=== PATIENT | female | born 1975 | race Caucasian/White ===

== ENCOUNTER 2017-09-27 06:18 | Day surgery (SDC) | payer BC ==
[2017-09-20 15:50] VITALS: BMI 33.4
--- NOTE | 2017-09-26 19:56 | P.HPOB ---
History of Present Illness H&P Date: 09/26/17 Chief Complaint: Menorrhagia with irregular cycle This is a 41-year-old female 3 para 3 who presents for dilation and curettage with hysteroscopy and NovaSure endometrial ablation due to menorrhagia with irregular cycle. Her pelvic ultrasound showed a uterus measuring 11.4 x 6.5 x 9.3 cm with a possible fibroid in the left side measuring 1.8 cm. Endometrium measured 1.7 cm right before her menses. Ovaries appeared normal. She complains of menses occurring every 3-4 weeks and lasting at least 6-7 days with large clots and cramping. She has to change her pads every couple hours. Obstetrical history: . History of 3 vaginal deliveries. Gynecologic history: No history of sexually transmitted diseases. She has had a tubal ligation. Social history: She is . 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 Review of Systems Constitutional: Denies chills, Denies fever Eyes: denies blurred vision, denies pain Ears, nose, mouth and throat: Denies headache, Denies sore throat Cardiovascular: Denies chest pain, Denies shortness of breath Respiratory: Denies cough Gastrointestinal: Denies abdominal pain, Denies diarrhea, Denies nausea, Denies vomiting Genitourinary: Reports menorrhagia, Reports pelvic pain Menstruation: Reports menses variable, Reports period heavy Musculoskeletal: Denies myalgias Integumentary: Denies pruritus, Denies rash Neurological: Denies numbness, Denies weakness Psychiatric: Reports irritability (Around menses), Denies anxiety, Denies depression Past Medical History Past Medical History: Diabetes Mellitus, Hyperlipidemia Additional Past Medical History / Comment(s): takes lisinopril due to diabetes, not high BP; alopecia, anticardiolipin antibody positive, thrombocytopenia History of Any Multi-Drug Resistant Organisms: None Reported Past Surgical History: Tubal Ligation Additional Past Surgical History / Comment(s): COLONOSCOPY x2 Past Anesthesia/Blood Transfusion Reactions: No Reported Reaction Past Psychological History: No Psychological Hx Reported Smoking Status: Former smoker Past Alcohol Use History: Occasional Past Drug Use History: None Reported - Past Family History Mother Family Medical History: No Reported History Medications and Allergies Home Medications Medication Instructions Recorded Confirmed Type Lisinopril [Zestril] 2.5 mg PO PC-SUPPER 09/20/17 09/20/17 History Lovastatin [Mevacor] 20 mg PO PC-SUPPER 09/20/17 09/20/17 History Multivit with Calcium,Iron,Min 1 each PO DAILY 09/20/17 09/20/17 History [Women's Multivitamin] metFORMIN HCL [metFORMIN HCL ER] 750 mg PO PC-SUPPER 09/20/17 09/20/17 History Allergies Allergy/AdvReac Type Severity Reaction Status Date / Time No Known Allergies Allergy Verified 09/20/17 15:46 Exam Osteopathic Statement: *. No significant issues noted on an osteopathic structural exam other than those noted in the History and Physical/Consult. HEENT: Within normal limits Heart: Regular rate and rhythm Lungs: Clear to auscultation bilaterally Abdomen: Soft, nontender Pelvic exam: Uterus is anteverted, nontender, with no adnexal masses or tenderness noted. Extremities: Negative Homans Assessment and Plan (1) Menorrhagia with irregular cycle Status: Acute Code(s): N92.1 - EXCESSIVE AND FREQUENT MENSTRUATION WITH IRREGULAR CYCLE SNOMED Code(s): 038775657 Plan: Proceed with dilation and curettage with hysteroscopy and NovaSure endometrial ablation. I have discussed the risks, benefits, and alternative therapies for the above- mentioned procedure and for both sedation/anesthesia as well as necessary blood products administration, if indicated, as they pertain to this patient. The patient has indicated her understanding and acceptance of the risks and procedures discussed.
[~2017-09-27 06:18] MED LIST: DEXAMETHASONE SOD PHOSPHATE 10 MG/ML 1 ML VIAL IV ONE; HYDROmorphone 0.5 MG/0.5 ML SYRINGE IVP PRN; LACTATED RINGERS 1,000 ML IV SCH; MORPHINE SULFATE 2 MG/ML SYRINGE IV PRN; ONDANSETRON 4 MG/2 ML VIAL IVP ONE; ONDANSETRON 4 MG/2 ML VIAL IVP PRN; PROMETHAZINE INJ 6.25 MG in SODIUM CHLORIDE 0.9% 50 ML IVPB PRN; Pre Op ABX Message 1 EACH MISC MISCELLANE ONE
[2017-09-27 06:47] LABS: Glucose,Whole Blood 163 mg/dL (75-99)
[2017-09-27] MEDS ORDERED: LIDOCAINE 1% 20 ML VIAL (10MG/ML) FOR IV START INTRADERMA ONE (06:50)
[2017-09-27] MEDS ORDERED: KETOROLAC 30 MG/ML 1 ML VIAL ONE (07:30)
[2017-09-27] MEDS ORDERED: PROPOFOL 10 MG/ML 20 ML VIAL IV ONE (07:30)
[2017-09-27] MEDS ORDERED: fentaNYL (PF) 50 MCG/ML 2 ML AMP ONE (07:30)
[2017-09-27] MEDS ORDERED: MIDAZOLAM 2 MG/2 ML VIAL ONE (07:30)
--- NOTE | 2017-09-27 08:07 | P.OP ---
Date of Procedure: 09/27/17 Preoperative Diagnosis: Menorrhagia with irregular cycle Postoperative Diagnosis: Same Procedure(s) Performed: Dilation and curettage with hysteroscopy and NovaSure endometrial ablation Anesthesia: other (Mask general) Surgeon: Sara Vanessa Estimated Blood Loss (ml): 10 Pathology: other (Endometrial curettings) Condition: stable Disposition: same day Indications for Procedure: This is a 41-year-old female 3 para 3 who presents for dilation and curettage with hysteroscopy and NovaSure endometrial ablation due to menorrhagia with irregular cycle. Her pelvic ultrasound showed a uterus measuring 11.4 x 6.5 x 9.3 cm with a possible fibroid in the left side measuring 1.8 cm. Endometrium measured 1.7 cm right before her menses. Ovaries appeared normal. She complains of menses occurring every 3-4 weeks and lasting at least 6-7 days with large clots and cramping. She has to change her pads every couple hours. Operative Findings: Uterus is anteverted, and sounded to 11 cm. Cervix is sounded to 4 cm. Upon hysteroscopy a dyssynchronous endometrial pattern was noted with some buildup of tissue noted. Both tubal ostia were visualized. A moderate to large amount of endometrial cuttings are obtained. Description of Procedure: The patient is taken to the operating room. She is placed in the dorsal lithotomy position after general anesthesia was given. She is prepped and draped in the normal sterile fashion. Bladder is drained with a catheter and then removed. Pelvic exam is performed under anesthesia. Uterus is found to be anteverted with no adnexal masses. She is placed in slight Trendelenburg position. A right angle retractor is used to visualize the cervix. The anterior lip of the cervix is grasped with a single-tooth tenaculum. Cervix is sounded to 4 cm. Uterus is sounded to 11 cm. Cervix is gently dilated with Galarza dilators until a hysteroscope could be passed. Hysteroscopy is performed using normal saline. The above noted findings are noted. Next a polyp forceps is introduced. A moderate to large amount of tissue was obtained. Next medium- sized size sharp curette was placed. A moderate to large amount of endometrial curettings were obtained. Next NovaSure array was inserted into the endometrial cavity. Length was set at 6.5 cm and width was determined to be 4.9 cm. Next cavity assessment was completed and passed on the first try. Next NovaSure array was fired at 175 W for 63 seconds. Next the array was removed, inspected and then discarded. Next the hysteroscope was reinserted. Uniform charring was noted. Pictures were taken. Hysteroscope was removed. Single-tooth tenaculum was removed from the anterior lip of the cervix. Minimal bleeding was noted. All other instruments removed from the vagina. Sponge counts were correct. Patient is taken to recovery room in stable condition.
[2017-09-27 08:17] VITALS: TEMP 97.6
[2017-09-27 08:49] VITALS: RESP 16
[2017-09-27 08:49] LABS: Glucose,Whole Blood 181 mg/dL (75-99)
[2017-09-27 09:55] VITALS: BP 101/56; PULSE 77
== END 2017-09-27 10:23 | disposition home or self-care (01) ==
LOC: OR 06:18
PROVIDERS: ATTEND Obstetrics & Gynecology
DX: N84.0 Polyp of corpus uteri (principal); N92.1 Excessive and frequent menstruation with irregular cycle; E11.9 Type 2 diabetes mellitus without complications; E78.5 Hyperlipidemia, unspecified; E66.9 Obesity, unspecified; Z68.33 Body mass index [BMI] 33.0-33.9, adult; Z79.84 Long term (current) use of oral hypoglycemic drugs; Z79.899 Other long term (current) drug therapy; Z87.891 Personal history of nicotine dependence; Z98.51 Tubal ligation status
CPT/HCPCS: 58563; 81025; 88305; J2250; J1100; J2405; J3010; J1885; J2704; J1170

== ENCOUNTER 2020-08-02 07:41 | Inpatient (IN) | payer BC ==
--- NOTE | 2020-08-02 08:07 | ED ---
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 she states that she has had intermittent headaches x 3 days, and had one at the time of symptoms. Denies this being the worst headache of her life, described as dull aching pain, in the front of head. Pt states that she also noted 3 days ago she has loss of the right peripheral visual torres and had the numbness sensation that she is experiencing today--pt states that her right eye didnt seem to change and has been better since Saturday. Patient denies diplopia, nausea, vomiting, current sensation deficits/symptoms, weakness of the UE, LE, speech changes, facial asymmetry. Denies experiencing this in the past. pt denies pain, chest pain, dyspnea, leg swelling, anticoagulation use. Upon arrival patient appears well nontoxic. - Related Data Home Medications: Home Medications Medication Instructions Recorded Confirmed Empagliflozin [Jardiance] 10 mg PO DAILY 08/02/20 08/02/20 Omeprazole 20 mg PO DAILY 08/02/20 08/02/20 lisinopriL [Zestril] 5 mg PO DAILY 08/02/20 08/02/20 Allergies/Adverse Reactions: Allergies Allergy/AdvReac Type Severity Reaction Status Date / Time No Known Allergies Allergy Verified 08/02/20 07:49 Review of Systems ROS Statement: Those systems with pertinent positive or pertinent negative responses have been documented in the HPI. ROS Other: All systems not noted in ROS Statement are negative. General Exam - General Exam Comments Initial Comments: General: The patient is awake and alert, in no distress Eye: +3 mm pupils are equal, round and reactive to light, extra-ocular movements are intact. No nystagmus. There is normal conjunctiva bilaterally. No signs of icterus. Ears, nose, mouth and throat: There are moist mucous membranes and no oral lesions. Neck: The neck is supple, there is no tenderness or JVD. Cardiovascular: There is a regular rate and rhythm. No murmur, rub or gallop is appreciated. Respiratory: Lungs are clear to auscultation, respirations are non-labored, breath sounds are equal. No wheezes, stridor, rales, or rhonchi. Musculoskeletal: Normal ROM, no tenderness. Strength 5/5. Sensation intact. Pulses equal bilaterally 2+. Neurological: A&O x 3. CN II-XII intact aside from patietn has impairment lateral vision field of right eye (hemianopia), memory intact to immediately, intermediate and fdc recall. Able to follow simple verbal. Able to name a common object (pen). High quality, labial (pa) and lingual (la) speech. Low quality posterior pharynx/larynx (ga) voice sounds. Able to express general knowledge (days in a week). No hemineglect or inattention noted. Finger agnosia (-) and spatially oriented (identified L index finger touched R shoulder with L index finger). Light touch and temperature sensation present over the face, chest, abdomen, back, UE bilaterally, and LE bilaterally. Able to localize point during point localization b/l and extinction. No visible bulk atrophy, hypertrophy, fasciculations, or myoclonus of the UE or LE b/l. Full PROM in UE and LE b/l. Bilateral muscle strength 5/5 for the following muscles: deltoid, biceps, triceps, brachioradialis, wrist extensors/flexor, hip flexor, hip abductors/adductors, hamstrings, quadriceps, feet dorsiflexors/plantar flexors. Finger to nose, finger to the examiners finger, and heel to larson coordinated and accurate b/l. Coordinated and even demonstration of hand flip, finger to thumb, and toe tap b/l.(-) primitive reflexes. Gait is coordinated and even in stride. (-) pronator drift. No nuchal rigidity. (-) Brudzinskis and Kernig signs. Skin: Skin is warm and dry and no rashes or lesions are noted. Psychiatric: Cooperative, appropriate mood & affect, normal judgment. Limitations: no limitations Stroke MDM - Lab Data Result diagrams: 08/02/20 08:31 04 08:31 Lab Results 08/02/20 08/02/20 08/02/20 Range/Units 08:31 08:31 08:31 WBC 6.1 (3.8-10.6) k/uL RBC 4.88 (3.80-5.40) m/uL Hgb 13.8 (11.4-16.0) gm/dL Hct 41.5 (34.0-46.0) % MCV 85.0 (80.0-100.0) fL MCH 28.2 (25.0-35.0) pg MCHC 33.2 (31.0-37.0) g/dL RDW 14.9 (11.5-15.5) % Plt Count 213 (150-450) k/uL MPV 6.6 Neutrophils % 87 % Lymphocytes % 5 % Monocytes % 4 % Eosinophils % 4 % Basophils % 1 % Neutrophils # 5.3 (1.3-7.7) k/uL Lymphocytes # 0.3 L (1.0-4.8) k/uL Monocytes # 0.2 (0-1.0) k/uL Eosinophils # 0.2 (0-0.7) k/uL Basophils # 0.0 (0-0.2) k/uL PT 11.4 (9.0-12.0) sec INR 1.1 (<1.2) APTT 42.5 H (22.0-30.0) sec Sodium 134 L (137-145) mmol/L Potassium 4.0 (3.5-5.1) mmol/L Chloride 100 (98-107) mmol/L Carbon Dioxide 23 (22-30) mmol/L Anion Gap 11 mmol/L BUN 13 (7-17) mg/dL Creatinine 0.49 L (0.52-1.04) mg/dL Est GFR (CKD-EPI)AfAm >90 (>60 ml/min/1.73 sqM) Est GFR (CKD-EPI)NonAf >90 (>60 ml/min/1.73 sqM) Glucose 121 H (74-99) mg/dL Calcium 9.2 (8.4-10.2) mg/dL Total Bilirubin 0.7 (0.2-1.3) mg/dL AST 23 (14-36) U/L ALT 17 (4-34) U/L Alkaline Phosphatase 67 (38-126) U/L Troponin I (0.000-0.034) ng/mL Total Protein 7.1 (6.3-8.2) g/dL Albumin 4.5 (3.5-5.0) g/dL Coronavirus (PCR) (Not Detectd) 08/02/20 08/02/20 Range/Units 08:31 09:45 WBC (3.8-10.6) k/uL RBC (3.80-5.40) m/uL Hgb (11.4-16.0) gm/dL Hct (34.0-46.0) % MCV (80.0-100.0) fL MCH (25.0-35.0) pg MCHC (31.0-37.0) g/dL RDW (11.5-15.5) % Plt Count (150-450) k/uL MPV Neutrophils % % Lymphocytes % % Monocytes % % Eosinophils % % Basophils % % Neutrophils # (1.3-7.7) k/uL Lymphocytes # (1.0-4.8) k/uL Monocytes # (0-1.0) k/uL Eosinophils # (0-0.7) k/uL Basophils # (0-0.2) k/uL PT (9.0-12.0) sec INR (<1.2) APTT (22.0-30.0) sec Sodium (137-145) mmol/L Potassium (3.5-5.1) mmol/L Chloride (98-107) mmol/L Carbon Dioxide (22-30) mmol/L Anion Gap mmol/L BUN (7-17) mg/dL Creatinine (0.52-1.04) mg/dL Est GFR (CKD-EPI)AfAm (>60 ml/min/1.73 sqM) Est GFR (CKD-EPI)NonAf (>60 ml/min/1.73 sqM) Glucose (74-99) mg/dL Calcium (8.4-10.2) mg/dL Total Bilirubin (0.2-1.3) mg/dL AST (14-36) U/L ALT (4-34) U/L Alkaline Phosphatase (38-126) U/L Troponin I <0.012 (0.000-0.034) ng/mL Total Protein (6.3-8.2) g/dL Albumin (3.5-5.0) g/dL Coronavirus (PCR) Not Detected (Not Detectd) - Medical Decision Making 44yo female presenting for cc of vision changes x 3 days/numbness x 3 days with reoccurance and resolution 5 hours ago. Patient states vision appears normal but there is right hemianopia on exam. Patient CT correlates with exam findings. Discussed ifndings with attending/as well as neurology who feel this is subacute and clinically correlates with patient story of symptom onset Saturday. Dr Barbara vazquez recommended starting plavix 300mg and lipitor 80mg. he is agreeable to consultation. Patient will be admitted to Dr Vallejo Past Medical History Past Medical History: Diabetes Mellitus, Hyperlipidemia Additional Past Medical History / Comment(s): takes lisinopril due to diabetes, not high BP; alopecia, anticardiolipin antibody positive, thrombocytopenia History of Any Multi-Drug Resistant Organisms: None Reported Past Surgical History: Tubal Ligation Additional Past Surgical History / Comment(s): COLONOSCOPY x2 Past Anesthesia/Blood Transfusion Reactions: No Reported Reaction Past Psychological History: No Psychological Hx Reported Smoking Status: Current some day smoker Past Alcohol Use History: Occasional Past Drug Use History: Marijuana - Past Family History Mother Family Medical History: No Reported History Course Vital Signs 08/02/20 08/02/20 08/02/20 07:46 09:05 09:10 Temperature 97.5 F L 98.0 F Pulse Rate 87 86 82 Respiratory 20 18 18 Rate Blood Pressure 121/80 112/65 117/70 O2 Sat by Pulse 99 96 97 Oximetry 08/02/20 08/02/20 09:45 10:05 Temperature 98.1 F Pulse Rate 89 83 Respiratory 18 18 Rate Blood Pressure 105/68 119/58 O2 Sat by Pulse 99 97 Oximetry - Reevaluation(s) Reevaluation #1: Dr Denisse nguyen described a SUBACUTE, left occipital infarct. 08/02/20 09:09 Disposition Clinical Impression: CVA (cerebral vascular accident), Hemianopia of right eye Disposition: ADMITTED IP TO THIS HOSP Condition: Stable Is patient prescribed a controlled substance at d/c from ED?: No Referrals: Don Bell MD [Primary Care Provider] - 1-2 days Time of Disposition: 09:03 Decision to Admit Reason: Admit from EC Decision Date: 08/02/20 Decision Time: 09:03
[2020-08-02 08:50] LABS: Basophils % (A) 1 %; Eosinophils # (A) 0.2 k/uL (0-0.7); Eosinophils % (A) 4 %; HCT 41.5 % (34.0-46.0); HGB 13.8 gm/dL (11.4-16.0); Lymphocytes # (A) 0.3 k/uL (1.0-4.8); Lymphocytes % (A) 5 %; MCH 28.2 pg (25.0-35.0); MCHC 33.2 g/dL (31.0-37.0); Mean Platelet Volume 6.6; Monocytes # (A) 0.2 k/uL (0-1.0); Monocytes % (A) 4 %; Neutrophils # (A) 5.3 k/uL (1.3-7.7); Neutrophils % (A) 87 %; Platelet Count 213 k/uL (150-450); RBC 4.88 m/uL (3.80-5.40); RDW 14.9 % (11.5-15.5); WBC 6.1 k/uL (3.8-10.6)
[2020-08-02] MEDS ORDERED: ASPIRIN 325 MG TAB PO STA (09:02)
[2020-08-02 09:04] LABS: ALT 17 U/L (4-34); AST 23 U/L (14-36); African American GFR (CKD) >90 (>60 ml/min/1.73 sqM); Albumin 4.5 g/dL (3.5-5.0); Alkaline Phosphatase 67 U/L (38-126); Anion Gap 11 mmol/L; Blood Urea Nitrogen 13 mg/dL (7-17); Calcium 9.2 mg/dL (8.4-10.2); Carbon Dioxide 23 mmol/L (22-30); Chloride 100 mmol/L (98-107); Glucose 121 mg/dL (74-99); Non-African American GFR(CKD) >90 (>60 ml/min/1.73 sqM); Sodium 134 mmol/L (137-145); Total Bilirubin 0.7 mg/dL (0.2-1.3); Total Protein 7.1 g/dL (6.3-8.2)
--- NOTE | 2020-08-02 09:08 | CT ---
EXAMINATION TYPE: CT brain wo con for TPA DATE OF EXAM: 08/02/2020 COMPARISON: None HISTORY: Neuro deficit CT DLP: 1110.8 mGycm Automated exposure control for dose reduction was used. FINDINGS: Low-attenuation is present within the inferior aspect of the left parietal lobe, area measures approx imately 4.2 cm in greatest AP dimension by 2.4 cm in transverse dimension by 2.2 cm in cephalad to ca udal dimension. There is no hemorrhage, hydrocephalus. Inferior cerebellar tonsillar ectopia noted in cidentally. Calvarium is intact. Mastoid air cells are well aerated. Some inflammatory change present in the ethmoid air cells, frontal sinus. Orbits show symmetric appearance. Punctate focus of low-att enuation within the head of the caudate on the right may represent small focus of encephalomalacia, w rote remote infarct measuring only 5 mm in size. IMPRESSION: Findings consistent with infarct involving the left inferior occipital lobe findings relayed to Kelsey Vázquez telephonically at the time of interpretation. Probable remote infarct head of the caudate on the right.
[2020-08-02 09:10] LABS: INR 1.1 (<1.2); Partial Thromboplastin Time 42.5 sec (22.0-30.0); Prothrombin Time 11.4 sec (9.0-12.0)
--- NOTE | 2020-08-02 09:16 | XR ---
EXAMINATION TYPE: XR chest 2V DATE OF EXAM: 08/02/2020 COMPARISON: NONE TECHNIQUE: PA and lateral views submitted. HISTORY: Altered mental status FINDINGS: The lungs are clear and there is no pneumothorax, pleural effusion, or focal pneumonia. Interstitiu m somewhat coarsened. Biapical pleural thickening. Heart size normal. IMPRESSION: 1. Coarsened interstitium may represent chronic interstitial lung disease correlate clinically to exc lude interstitial pneumonitis..
--- NOTE | 2020-08-02 09:48 | CT ---
EXAMINATION TYPE: CT angio head neck DATE OF EXAM: 08/02/2020 HISTORY: Neuro deficit COMPARISON: CT brain same date CT DLP: 577.7 mGycm. Automated Exposure Control for Dose Reduction was Utilized. TECHNIQUE: CTA scan of the neck is performed with IV Contrast, patient injected with 65 mL of Isovue 370, axial images are obtained, coronal and sagittal reformatted images are reviewed. Three-D recons tructed images are created on an independent workstation and reviewed. FINDINGS: Carotid/Vascular Structures: Transverse aorta, 3 super aortic branch vessels are patent, left and rig ht subclavian arteries, left and right common carotid arteries, innominate artery are patent without evident stenosis. Internal and external carotid arteries are patent. There is no stenosis by NASCET c riteria. Right vertebral artery is patent, left vertebral artery is not seen proximally but is diminu tive distally near the level of the confluence. Anterior posterior circulation within the soboba of Garcia are intact. There is no evident aneurysm, stenosis, embolus, or dissection. Other: Midline posterior fusion defect noted C1. There is nodularity involving the thyroid gland with some calcification noted on the left. IMPRESSION: No significant abnormality is seen.
[2020-08-02] MEDS ORDERED: CLOPIDOGREL 75 MG TAB PO STA (10:29)
[2020-08-02] MEDS ORDERED: ATORVASTATIN 80 MG TAB PO STA (10:30)
--- NOTE | 2020-08-02 11:01 | ECHOF ---
Referral Reason: MEASUREMENTS -------- HEIGHT: 165.1 cm WEIGHT: 90.7 kg BP: RVIDd: 2.4 cm (< 3.3) IVSd: 0.8 cm (0.6 - 1.1) LVIDd: 4.5 cm (3.9 - 5.3) LVPWd: 0.9 cm (0.6 - 1.1) IVSs: 1.4 cm LVIDs: 1.9 cm LVPWs: 1.3 cm LAESV Index (A-L): 23.73 ml/m Ao Diam: 2.9 cm (2.0 - 3.7) AV Cusp: 2.3 cm (1.5 - 2.6) LA Diam: 3.6 cm (2.7 - 3.8) MV EXCURSION: 13.189 mm (> 18.000) MV EF SLOPE: 100 mm/s (70 - 150) EPSS: 0.6 cm MV E Richy: 1.00 m/s MV DecT: 163 ms MV A Richy: 1.10 m/s MV E/A Ratio: 0.91 RAP: 5.00 mmHg RVSP: 20.36 mmHg FINDINGS -------- This was a technically adequate study. The left ventricular size is normal. Left ventricular wall thickness is normal. Overall left vent ricular systolic function is normal with, an EF between 55 - 60 %. The diastolic filling pattern is normal for the age of the patient 12.50. The right ventricle is normal in size. The left atrial size is normal. Normal LA size by volume 22+/-6 ml/m2. The right atrial size is normal. Contrast study was performed with 2 iv injections of 8 ccs of agitated normal saline, at rest, and wi th cough. Bubble study to rule out shunt. Unable to rule out due to poor image quality. The aortic valve is trileaflet and appears structurally normal. The mitral valve is normal. There is trace mitral regurgitation. The tricuspid valve appears structurally normal. Trace tricuspid regurgitation present. Right fanny tricular systolic pressure is normal at < 35 mmHg. There is no pulmonic regurgitation present. The aortic root size is normal. Normal inferior vena cava with normal inspiratory collapse consistent with estimated right atrial pre ssure of 5 mmHg. There is no pericardial effusion. CONCLUSIONS -------- 1. Left ventricular wall thickness is normal. 2. Overall left ventricular systolic function is normal with, an EF between 55 - 60 %. 3. The diastolic filling pattern is normal for the age of the patient 12.50 4. Contrast study was performed with 2 iv injections of 8 ccs of agitated normal saline, at rest, and with cough. 5. Bubble study to rule out shunt. Unable to rule out due to poor image quality. 6. There is trace mitral regurgitation. 7. Trace tricuspid regurgitation present. 8. There is no pericardial effusion. ROOM SERVICE MANAGER: Amaya Coates RDCS
--- NOTE | 2020-08-02 12:50 | P.CNNES ---
History of Present Illness Consult date: 08/02/20 Requesting physician: Dasia Vázquez Reason for Consult: subacute occipital stroke History of Present Illness: This is a 44-year-old woman with medical history of diabetes (for past 30 years) and the positive for anti-cardiolipin antibody who presented emergency department on 08/02/2020 for complaint of right facial numbness for last 3 days as well as right vision change. Asa was accompanied with her who is at bedside. She stated that the since this Saturday night she felt dizzy and she had to hold onto thinks she felt like the room is spinning episode lasted for half hour then it resolved. She thought this was all related to her diabetes. Then the Saturday and Saturday she felt she was mentally off not her baseline and was low as in thinking process. At 3:00 AM today she noticed the right side of the face and the entire right upper extremity and the right side of her body was numb and that lasted 1-2 minutes and the primary to come to the hospital. Also that she noticed that Saturday around that 10 PM her right side of the eyes could not see and it was per minute but again she no. She felt this was all due to diabetes as well as having echo with vaccine this past Saturday. She denies of any focal weakness, any current numbness, any difficulty getting her words out or difficulty swallowing. She denies of any stroke in the past or any transient ischemic attack. Patient denies of being on any antiplatelets or anticoagulation. Regarding her anticardiolipin antibodies she said that the she had testing done while she was about 20 years ago and she was notified that she had anticardiolipin antibody but was not very placed on any antiplatelets or anticoagulation. She denies any the spontaneous abortions in the past. She denies being on any statins. Workup in the hospital consisted of: Initial vital signs: Blood pressure of 121/80, heart rate of 87, respiratory of 20, temperature of 97.5 Fahrenheit oral and pulse ox of 99% room air. CT of the head is reported as finding consistent with infarct involving the left inferior occipital lobe. Probable remote infarct head of the caudate on the right. Personally reviewed the CT of the head and I felt the the left occipital seems more subacute to chronic. And I did see the the remote infarct in the right caudate region. CT angiography of the head and neck is reported as no significant abnormality seen. Initial serum glucose is 121. Review of Systems Review of system: The 12 point system was reviewed and apparent positive and negative per HPI. Past Medical History Past Medical History: Diabetes Mellitus, Hyperlipidemia Additional Past Medical History / Comment(s): takes lisinopril due to diabetes, not high BP; alopecia, anticardiolipin antibody positive, thrombocytopenia History of Any Multi-Drug Resistant Organisms: None Reported Past Surgical History: Tubal Ligation Additional Past Surgical History / Comment(s): COLONOSCOPY x2 Past Anesthesia/Blood Transfusion Reactions: No Reported Reaction Past Psychological History: No Psychological Hx Reported Smoking Status: Current some day smoker Past Alcohol Use History: Occasional Past Drug Use History: Marijuana - Past Family History Mother Family Medical History: No Reported History Medications and Allergies Home Medications Medication Instructions Recorded Confirmed Type Empagliflozin [Jardiance] 10 mg PO DAILY 08/02/20 08/02/20 History Omeprazole 20 mg PO DAILY 08/02/20 08/02/20 History lisinopriL [Zestril] 5 mg PO DAILY 08/02/20 08/02/20 History Allergies Allergy/AdvReac Type Severity Reaction Status Date / Time No Known Allergies Allergy Verified 08/02/20 07:49 Physical Examination - Vital Signs Vital Signs: Vital Signs Temp Pulse Resp BP Pulse Ox 08/02/20 10:05 98.1 F 83 18 119/58 97 08/02/20 09:45 89 18 105/68 99 08/02/20 09:10 82 18 117/70 97 08/02/20 09:05 98.0 F 86 18 112/65 96 08/02/20 07:46 97.5 F L 87 20 121/80 99 Intake and Output 08/01/20 08/02/20 08/02/20 22:59 06:59 14:59 Other: Weight 90.718 kg GENERAL: The patient is lying in bed and is not in acute distress. CHEST: The heart rate is regular rate rhythm. No murmurs to auscultation. No carotid bruit bilaterally. LUNG: Clear to auscultation bilaterally no wheezing noted throughout. Not labored breathing. ABDOMEN/GI: Bowel sounds present in all 4 quadrants. No tenderness to palpation throughout. NEUROLOGICAL: Higher mental function: The patient is awake, alert, oriented to self, place and time. Patient is following commands. No aphasia and no neglect. Cranial nerves: The pupils are round, equal and reactive to light and accommodation. Visual torres: right upper quadrant hemianopsia to confrontation. Extraocular movement is intact no nystagmus is noted. Facial sensation is normal to touch throughout. The facial strength is normal throughout. Hearing is normal bilaterally to hand rub. Tongue is midline and moved [id number] without any difficulty. No dysarthria is noted. Shoulder shrug is normal bilaterally. Motor: Gait is deferred. The strength is 5 over 5 throughout. Normal tone and bulk. Cerebellum: Normal finger to nose heel to larson bilaterally. Sensation: Sensation is normal to touch throughout. Reflexes (right/left): 2+ Plantars are downgoing bilaterally. Results Coagulation study: PT of 11.4, INR is 1.1, PTT of 42.5 (slightly elevated). Field virus are is nondetected - Laboratory Findings CBC and BMP: 08/02/20 08:31 04 08:31 Abnormal Lab Findings: Abnormal Labs 08/02/20 08/02/20 08/02/20 08:31 08:31 08:31 Lymphocytes # 0.3 L APTT 42.5 H Sodium 134 L Creatinine 0.49 L Glucose 121 H Assessment and Plan Assessment: Subacute ischemic stroke over the left occipital region (with symptoms of right upper quadrant hemianposia). 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 I asked the ED to also load the patient with the Plavix 300 mg once as well as Lipitor 80 mg once. Then I will start the patient on aspirin 81 as well as Plavix 75 mg daily for secondary stroke prophylaxis. I will consider starting the patient on anticoagulation possibly in 5 days but will speak with cardiology regarding this before I proceed. I'll also start the patient on Lipitor 80 mg daily for secondary stroke prophylaxis. Ordered MRI the brain and 2-D echo. The 2-D echo was with bubble study. If the 2-D echo was normal I will order AKHIL. I ordered an event monitor. Lipid panel is ordered and is pending Placed the patient on every 4 hours neuro checks. Placed the patient on continuous cardiac monitoring. TSH is ordered and is pending Physical therapy, occupational therapy and COMPUTER INFORMATION SYSTEMS PROFESSOR are consulted. I ordered DARA, [id number] DNA, cardiolipin antibody, factor V Leiden, homocysteine, MTHFR genotype, von Willebrand factor. I asked the ED team to consult cardiology team. The plan is discussed with the patient's nurse. Thank you for the consultation. Roberto Ludwig MD Neuro-Hospitalist Time with Patient: Greater than 30
--- NOTE | 2020-08-02 16:10 | MR ---
MR brain without contrast HISTORY: Stroke, dizziness Multiplanar multisequence imaging through the brain Correlation to prior CT brain 08/02/2020 There is restricted diffusion involving the region of the inferior left occipital lobe as noted on CT with extension towards the region of the posterior thalamus, corresponding hyperintensity noted on i nversion recovery T2-weighted sequences, some minimal additional scattered hyperintensities present w ithin the deep white matter. There is no hemorrhage or hydrocephalus. Inflammatory change present in the frontal sinus, ethmoid air cells. There are normal vascular flow voids. Orbits show symmetric negin earance. Some artifact present due to dental amalgam. IMPRESSION: Findings compatible with patient's history subacute infarct.
[2020-08-02 20:04] LABS: Glucose,Whole Blood 149 mg/dL (75-99)
[2020-08-02 21:44] LABS: Cardiolipin Ab IgG Interp NEGATIVE (NEGATIVE); Cardiolipin Ab IgM Interp NEGATIVE (NEGATIVE); Cardiolipin IgA Antibody 0.5 U/mL; Cardiolipin IgM Antibody 16.8 U/mL
[2020-08-02 21:46] LABS: Anti-DNA, DS unit <1.0 IU/mL; DNA Double-Stranded NEGATIVE (NEGATIVE)
[2020-08-03 05:31] LABS: Glucose,Whole Blood 128 mg/dL (75-99)
[2020-08-03 09:23] LABS: Cholesterol 150 mg/dL (<200); HDL Cholesterol 39 mg/dL (40-60); LDL Cholesterol,Calculated 73 mg/dL (0-99); Triglycerides 189 mg/dL (<150)
--- NOTE | 2020-08-03 09:56 | P.CRDCN ---
History of Present Illness History of present illness: HISTORY OF PRESENTING ILLNESS This is a pleasant 44-year-old female past medical history significant for diabetes mellitus, hypertension and former nicotine dependence. 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 We have been asked to see in consultation for AKHIL. She presented to the hospital yesterday with symptoms of feeling dizzy, lightheaded, right-sided numbness and peripheral vision changes on the right. She states her symptoms seem to have started on Saturday. She states she just felt tired, weak and mildly lightheaded. She was able to go into work and work her midnight shift as scheduled. When she got home on Saturday she felt extremely fatigued and slept all day. She then went to work again on Saturday night. While at work she continued to feel lightheaded and had an acute onset of right-sided numbness that went from her waist all the way up to her head. She states her face, jaw, teeth and arm were all normal. This was brief lasting about 10 minutes and subsided on its own. She called her PCP in the morning and was advised to come to the hospital for further evaluation. Diagnostic testing indicates she had a left inferior also pedal lobe infarct. Echocardiogram obtained revealed p reserved LV systolic function with ejection fraction 55-60% however they were unable to comment on the possibility of a shunt due to poor image quality. Telemetry tracings and EKG reviewed. She has been in sinus mechanism throughout her hospitalization. There is no evidence of arrhythmia thus far. Laboratory data reviewed, CBC unremarkable, sodium 134, potassium 4.0, creatinine 0.49, cardiac enzymes negative 1, TSH 1.93, DARA screen is positive, LDL 73 and HDL 39. Current daily medications include lisinopril 5 mg daily and jardiance. Her symptoms have almost completely resolved. She states that she gets up and ambulates she still does feel somewhat dizzy but not nearly as bad as was i nitially. REVIEW OF SYSTEMS At the time of my exam: CONSTITUTIONAL: Denies fever or chills. CARDIOVASCULAR: Denies chest pain, shortness of breath, orthopnea, PND or palpitations. RESPIRATORY: Denies cough. GASTROINTESTINAL: Denies abdominal pain, diarrhea, constipation, nausea or vomiting. MUSCULOSKELETAL: Denies myalgias. NEUROLOGIC: Denies numbness, tingling, headacbe or weakness. ENDOCRINE: Denies fatigue, weight change, polydipsia or polyurina. GENITOURINARY: Denies burning, hematuria or urgency with micturation. HEMATOLOGIC: Denies history of anemia or bleeding. PHYSICAL EXAMINATION Blood pressure 97/56 heart rate 84 afebrile and maintaining oxygen saturation on room air. CONSTITUTIONAL: No apparent distress. HEENT: Head is normocephalic. Pupils are equal, round. Sclerae anicteric. Mucous membranes of the mouth are moist. No JVD. No carotid bruit. CHEST EXAMINATION: Lungs are clear to auscultation. No chest wall tenderness is noted on palpation or with deep breathing. HEART EXAMINATION: Regular rate and rhythm. S1, S2 heard. No murmurs, gallops or rub. ABDOMEN: Soft, nontender. Positive bowel sounds. EXTREMITIES: 2+ peripheral pulses, no lower extremity edema and no calf tenderness. NEUROLOGIC EXAMINATION: Patient is awake, alert and oriented x3. ASSESSMENT Acute left inferior occipital lobe infarct, thought to be embolic in nature per neurology. Hypertension Diabetes mellitus PLAN No evidence thus far to suggest arrhythmia. Proceed with AKHIL tomorrow as recommended. Nothing by mouth after midnight tonight. The procedure has been explained in detail to the patient and she is agreeable to move forward. Ongoing telemetry monitoring throughout her hospitalization. Further recommendations to follow based upon clinical course. Thank you kindly for this consultation. Nurse Practitioner note has been reviewed, I agree with a documented findings and plan of care. Patient was seen and examined. Past Medical History Past Medical History: Diabetes Mellitus, Hyperlipidemia Additional Past Medical History / Comment(s): takes lisinopril due to diabetes, not high BP; alopecia, anticardiolipin antibody positive, thrombocytopenia History of Any Multi-Drug Resistant Organisms: None Reported Past Surgical History: Tubal Ligation Additional Past Surgical History / Comment(s): COLONOSCOPY x2 Past Anesthesia/Blood Transfusion Reactions: No Reported Reaction Past Psychological History: No Psychological Hx Reported Smoking Status: Current some day smoker Past Alcohol Use History: Occasional Past Drug Use History: Marijuana - Past Family History Mother Family Medical History: No Reported History Additional Family Medical History / Comment(s): Mother had a MT in her 50s. Father History Unknown: Yes Medications and Allergies Home Medications Medication Instructions Recorded Confirmed Type Empagliflozin [Jardiance] 10 mg PO DAILY 08/02/20 08/02/20 History Omeprazole 20 mg PO DAILY 08/02/20 08/02/20 History lisinopriL [Zestril] 5 mg PO DAILY 08/02/20 08/02/20 History Allergies Allergy/AdvReac Type Severity Reaction Status Date / Time No Known Allergies Allergy Verified 08/02/20 07:49 Physical Exam Vitals: Vital Signs Temp Pulse Pulse Resp BP BP Pulse Ox 08/03/20 07:40 98.8 F 84 16 97/56 98 08/03/20 04:00 98.4 F 69 16 109/71 98 08/03/20 02:00 68 17 08/03/20 00:00 98.1 F 68 17 94/56 97 08/02/20 20:00 97.9 F 77 16 95/52 96 08/02/20 18:18 98.1 F 89 16 105/70 96 08/02/20 17:47 97.9 F 87 18 105/55 98 08/02/20 16:05 87 18 105/55 98 08/02/20 14:05 85 18 99/58 97 08/02/20 12:05 97.9 F 90 18 119/58 98 08/02/20 11:46 81 18 109/90 95 08/02/20 11:05 98.0 F 80 18 112/48 98 08/02/20 10:05 98.1 F 83 18 119/58 97 08/02/20 09:45 89 18 105/68 99 08/02/20 09:10 82 18 117/70 97 08/02/20 09:05 98.0 F 86 18 112/65 96 Intake and Output 08/02/20 08/03/20 08/03/20 22:59 06:59 14:59 Intake Total 120 Balance 120 Intake: Oral 120 Other: Voiding Method Toilet Toilet # Voids 1 Weight 92.2 kg Results 08/02/20 08:31 08/02/20 08:31 Cardiac Enzymes 08/02/20 08/02/20 Range/Units 08:31 08:31 AST 23 (14-36) U/L Troponin I <0.012 (0.000-0.034) ng/mL Coagulation 08/02/20 Range/Units 08:31 PT 11.4 (9.0-12.0) sec APTT 42.5 H (22.0-30.0) sec CBC 08/02/20 Range/Units 08:31 WBC 6.1 (3.8-10.6) k/uL RBC 4.88 (3.80-5.40) m/uL Hgb 13.8 (11.4-16.0) gm/dL Hct 41.5 (34.0-46.0) % Plt Count 213 (150-450) k/uL Comprehensive Metabolic Panel 08/02/20 Range/Units 08:31 Sodium 134 L (137-145) mmol/L Potassium 4.0 (3.5-5.1) mmol/L Chloride 100 (98-107) mmol/L Carbon Dioxide 23 (22-30) mmol/L BUN 13 (7-17) mg/dL Creatinine 0.49 L (0.52-1.04) mg/dL Glucose 121 H (74-99) mg/dL Calcium 9.2 (8.4-10.2) mg/dL AST 23 (14-36) U/L ALT 17 (4-34) U/L Alkaline Phosphatase 67 (38-126) U/L Total Protein 7.1 (6.3-8.2) g/dL Albumin 4.5 (3.5-5.0) g/dL Current Medications Generic Name Dose Route Start Last Admin Trade Name Freq PRN Reason Stop Dose Admin Aspirin 81 mg 08/03/20 09:00 Aspirin 81 Mg PO DAILY [facility] Atorvastatin Calcium 80 mg 08/03/20 09:00 Atorvastatin 80 Mg Tab PO DAILY [facility] Clopidogrel Bisulfate 75 mg 08/03/20 09:00 Clopidogrel 75 Mg Tab PO DAILY [facility] Intake and Output 08/02/20 08/03/20 08/03/20 22:59 06:59 14:59 Intake Total 120 Balance 120 Intake: Oral 120 Other: Voiding Method Toilet Toilet # Voids 1 Weight 92.2 kg 08/02/20 08:31 08/02/20 08:31
[2020-08-03] MEDS: ASPIRIN 81 MG PO SCH (10:03)
[2020-08-03] MEDS: CLOPIDOGREL 75 MG TAB PO SCH (10:04)
[2020-08-03] MEDS: ATORVASTATIN 80 MG TAB PO SCH (10:04)
[2020-08-03] MEDS ORDERED: lisinopriL 5 MG TAB PO SCH (10:45)
[2020-08-03] MEDS: PANTOPRAZOLE 40 MG TABLET PO SCH (11:33)
[2020-08-03] MEDS: ENOXAPARIN 40 MG/0.4 ML SYRINGE SQ SCH (11:33)
--- NOTE | 2020-08-03 12:37 | P.PN ---
Subjective Progress Note Date: 08/03/20 The patient was seen at bedside and feels her vision slightly better today compared to yesterday. He denies of any further numbness. Denies of any weakness, difficulty getting her words out. MR the brain is reported as subacute infarct over the left occipital lobe with extension towards the posterior thalamus. There is also minimal additional scattered hyperintensity present within the deep white matter which seems chronic upon reviewing it. 2-D echo was reported as overall left ventricle systolic function is normal with ejection fraction between 55-60%. Bubble study was done but it was limited because unable to rule out due to poor image quality. Left atrial size is normal. Normal left atrial size by volume. Lipid panel: Triglyceride 189, cholesterol is 150, LDL 73, HDL 39. Homocysteine level is 6.21 which is normal. DARA screen is positive but the double-stranded DNA is negative. Anti-cardiolipin IgG/IGA/IgM antibody are normal and reported as negative. Objective - Vital Signs Vital signs: Vital Signs Temp 97.6 F 08/03/20 11:14 Pulse 68 08/03/20 11:14 Resp 17 08/03/20 11:14 BP 102/64 08/03/20 11:14 Pulse Ox 99 08/03/20 11:14 Intake & Output 08/02/20 08/03/20 08/03/20 18:59 06:59 18:59 Intake Total 120 250 Balance 120 250 Weight 90.718 kg 92.2 kg Intake: IV 10 0.9 10 Oral 120 240 Other: Voiding Method Toilet Toilet # Voids 1 # Bowel Movements 1 - Exam GENERAL: The patient is lying in bed and is not in acute distress. NEUROLOGICAL: Higher mental function: The patient is awake, alert, oriented to self, place and time. Patient is following commands. No aphasia and no neglect. Cranial nerves: The pupils are round, equal and reactive to light and accommodation. Visual torres: right upper quadrant hemianopsia to confrontation. Extraocular movement is intact no nystagmus is noted. Facial sensation is normal to touch throughout. The facial strength is normal throughout. Hearing is normal bilaterally to hand rub. Tongue is midline and moved [id number] without any difficulty. No dysarthria is noted. Shoulder shrug is normal bilaterally. Motor: Gait is deferred. The strength is 5 over 5 throughout. Normal tone and bulk. Cerebellum: Normal finger to nose heel to larson bilaterally. Sensation: Sensation is normal to touch throughout. Reflexes (right/left): 2+ Plantars are downgoing bilaterally. - Labs CBC & Chem 7: 08/02/20 08:31 08/02/20 08:31 Labs: Abnormal Lab Results - Last 24 Hours (Table) 08/02/20 08/02/20 08/03/20 Range/Units 12:56 20:03 05:30 POC Glucose (mg/dL) 149 H 128 H (75-99) mg/dL Triglycerides (<150) mg/dL HDL Cholesterol (40-60) mg/dL DARA Screen POSITIVE A (NEGATIVE) 08/03/20 Range/Units 07:51 POC Glucose (mg/dL) (75-99) mg/dL Triglycerides 189 H (<150) mg/dL HDL Cholesterol 39 L (40-60) mg/dL DARA Screen (NEGATIVE) Assessment and Plan Assessment: Subacute ischemic stroke (left occipital lobe with extension towards the posterior thalamus) with symptoms of right upper quadrant hemianposia). 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 I will consider starting the patient on anticoagulation down the line but will speak with cardiology regarding this before I proceed. I'll also start the patient on Lipitor 80 mg daily for secondary stroke prophylaxis. * MRI the brain is reported as subacute infarct over the left occipital lobe with extension towards the posterior thalamus. There is also minimal additional scattered hyperintensity present within the deep white matter which seems chronic upon reviewing it. * 2-D echo was reported as overall left ventricle systolic function is normal with ejection fraction between 55-60%. Bubble study was done but it was limited because unable to rule out due to poor image quality. Left atrial size is normal. Normal left atrial size by volume. * She is scheduled to have AKHIL tomorrow. * Lipid panel: Triglyceride 189, cholesterol is 150, LDL 73, HDL 39. LDL goal in stroke is <70. * TSH: 1.93 (normal). * Continue every 4 hours neuro checks. * Continue continuous cardiac monitoring. * Cardiology team is consulted. * Consulted Hematology/Oncology team * Ordered duplex of upper and lower extremities. * Ordered hypercoagulable work-up: Homocysteine level is 6.21 which is normal. DARA screen is positive but the double-stranded DNA is negative. Anti-cardioli pin IgG/IGA/IgM antibody are normal and reported as negative. * Pending factor V Leiden, MTHFR genotype, von Willebrand factor. Ordered antithrombin III antigen antibody, protein C and protein S antigen antibody. * I ordered an event monitor. * Physical therapy, occupational therapy and DRIVER UTILITY WORKER are consulted. The plan is discussed with the patient. Will continue to follow Roberto Ludwig MD Neuro-Hospitalist Time with Patient: Less than 30
--- NOTE | 2020-08-03 15:11 | P.CONS ---
History of Present Illness - Reason for Consult Consult date: 08/03/20 stroke in 44 year old, Hx of anticardiolipin ab + during Requesting physician: Roberto Ludwig - Chief Complaint numbness 1/2 of body - History of Present Illness Mrs. Adam is a very pleasant 44-year-old female patient with been asked to see as she presented with strokelike symptoms and has a history of anti-cardiolipin antibody positivity during . Patient had a CT angiogram was negative chest x-ray was suspicious for pneumonitis, CT of the head without contrast showed a left inferior occipital lobe infarct, MRI of the brain confirms the same. She is a light/occasional smoker, type 2 diabetes 4 years, she is not currently on control. Patient states on Saturday she felt a little bit dizzy, after resting she felt better. Saturday she felt foggy. She subsequently went to work the last 2 days. During work half of her body went numb but, she could move her limbs. This went away. She contacted her primary care the next a.m. who advised that she be seen in the hospital. Patient states that she has never seen a forest ecologist, no history of blood clots, she did take aspirin during all 3 of her pregnancies but not beyond that. She had had the moderna covid vaccine Saturday prior to all of these events. Review of Systems 14 point ROS is as stated in HPI Past Medical History Past Medical History: Diabetes Mellitus, Hyperlipidemia Additional Past Medical History / Comment(s): takes lisinopril due to diabetes, not high BP; alopecia, anticardiolipin antibody positive, thrombocytopenia History of Any Multi-Drug Resistant Organisms: None Reported Past Surgical History: Tubal Ligation Additional Past Surgical History / Comment(s): COLONOSCOPY x2 Past Anesthesia/Blood Transfusion Reactions: No Reported Reaction Past Psychological History: No Psychological Hx Reported Smoking Status: Current some day smoker Past Alcohol Use History: Occasional Past Drug Use History: Marijuana - Past Family History Mother Family Medical History: No Reported History Additional Family Medical History / Comment(s): Mother had a [place] in her 50s. Father History Unknown: Yes Medications and Allergies Home Medications Medication Instructions Recorded Confirmed Type Empagliflozin [Jardiance] 10 mg PO DAILY 08/02/20 08/02/20 History Omeprazole 20 mg PO DAILY 08/02/20 08/02/20 History lisinopriL [Zestril] 5 mg PO DAILY 08/02/20 08/02/20 History Allergies Allergy/AdvReac Type Severity Reaction Status Date / Time No Known Allergies Allergy Verified 08/02/20 07:49 Physical Exam Vitals: Vital Signs Temp Pulse Pulse Resp BP BP Pulse Ox 08/03/20 07:40 98.8 F 84 16 97/56 98 08/03/20 04:00 98.4 F 69 16 109/71 98 08/03/20 02:00 68 17 08/03/20 00:00 98.1 F 68 17 94/56 97 08/02/20 20:00 97.9 F 77 16 95/52 96 08/02/20 18:18 98.1 F 89 16 105/70 96 08/02/20 17:47 97.9 F 87 18 105/55 98 08/02/20 16:05 87 18 105/55 98 08/02/20 14:05 85 18 99/58 97 08/02/20 12:05 97.9 F 90 18 119/58 98 08/02/20 11:46 81 18 109/90 95 08/02/20 11:05 98.0 F 80 18 112/48 98 Intake and Output 08/02/20 08/03/20 08/03/20 22:59 06:59 14:59 Intake Total 120 240 Balance 120 240 Intake: Oral 120 240 Other: Voiding Method Toilet Toilet # Voids 1 Weight 92.2 kg - Constitutional General appearance: cooperative, no acute distress, obese - EENT Eyes: anicteric sclerae, EOMI ENT: hearing grossly normal, normal oropharynx - Neck Neck: no lymphadenopathy - Respiratory Respiratory: bilateral: CTA - Cardiovascular Rhythm: regular Heart sounds: normal: S1, S2 Abnormal Heart Sounds: no systolic murmur, no diastolic murmur, no rub, no S3 Gallop, no S4 Gallop, no click, no other leg Peripheral Edema: bilateral: None - Gastrointestinal General gastrointestinal: no absent bowel sounds, no decreased bowel sounds, no distended, no hepatomegaly, no hyperactive bowel sounds, normal bowel sounds, no organomegaly, no rigid, no scaphoid, soft, no splenomegaly, no tenderness, no umbilical hernia, no ventral hernia - Integumentary Integumentary: normal - Neurologic Neurologic: CNII-XII intact (grossly) - Musculoskeletal Musculoskeletal: strength equal bilaterally - Psychiatric Psychiatric: A&O x's 3, appropriate affect, intact judgment & insight Results CBC & Chem 7: 08/02/20 08:31 08/02/20 08:31 Labs: Abnormal Lab Results - Last 24 Hours (Table) 08/02/20 08/02/20 08/03/20 Range/Units 12:56 20:03 05:30 POC Glucose (mg/dL) 149 H 128 H (75-99) mg/dL Triglycerides (<150) mg/dL HDL Cholesterol (40-60) mg/dL DARA Screen POSITIVE A (NEGATIVE) 08/03/20 Range/Units 07:51 POC Glucose (mg/dL) (75-99) mg/dL Triglycerides 189 H (<150) mg/dL HDL Cholesterol 39 L (40-60) mg/dL DARA Screen (NEGATIVE) Abdominal x-ray: report reviewed CT scan - chest: report reviewed CT Scan - head: report reviewed MRI - head: report reviewed Assessment and Plan (1) Anticardiolipin antibody positive Narrative/Plan: Positive during . Pt took asa during her 3 pregnancies. Anticardiolipin antibodies can be present during . Testing was done here, showing patient is not positive for any antibodies. Would recommend testing for anticardiolipin antibodies one more time to ensure they are not present before being able to say, with any degree of certainty, that patient does not have antibodies. Agree with Neurology plan for treatment of acute TIA. Pending a few additional hypercoagulable labs values Current Visit: Yes Status: Suspected Priority: High Code(s): R76.0 - RAISED ANTIBODY TITER SNOMED Code(s): 459748555 (2) CVA (cerebral vascular accident) Current Visit: Yes Status: Acute Priority: High Code(s): I63.9 - CEREBRAL INFARCTION, UNSPECIFIED SNOMED Code(s): 683902333 Plan: Doctor attests: I performed a history and physical examination of this patient, developed impression and plan of care. Discussed with dictator. I agree with dictators note, documented as a scribe.
--- NOTE | 2020-08-03 16:03 | US ---
EXAMINATION TYPE: US venous doppler duplex UE BI DATE OF EXAM: 08/03/2020 COMPARISON: NONE CLINICAL HISTORY: rule out DVT in young stroke. stroke SIDE PERFORMED: bilateral Right Arm: positive for DVT, non-occlusive thrombus noted within right jugular, medial subclavian vei n Left Arm: no evidence of DVT IMPRESSION: 1. Venous thrombus Right upper extremity ultrasound. This would include the jugular and subclavian v eins. 2. No left upper extremity deep venous thrombosis.
--- NOTE | 2020-08-03 16:15 | US ---
EXAMINATION TYPE: US venous doppler duplex LE DATE OF EXAM: 08/03/2020 3:50 PM COMPARISON: NONE CLINICAL HISTORY: Swelling. stroke SIDE PERFORMED: bilateral TECHNIQUE: The lower extremity deep venous system is examined utilizing real time linear array sonog cecil with graded compression, doppler sonography and color-flow sonography. VESSELS IMAGED: Common Femoral Vein Deep Femoral Vein Greater Saphenous Vein * Femoral Vein Popliteal Vein Small Saphenous Vein * Proximal Calf Veins (* superficial vessels) Right Leg: no evidence of DVT Left Leg: no evidence of DVT Grayscale, color doppler, spectral doppler imaging performed of the deep veins of the bilateral lower extremities. There is normal flow, compressibility, vascular waveforms. IMPRESSION: No ultrasound evidence for acute DVT in either lower extremity.
[2020-08-03 16:57] LABS: Glucose,Whole Blood 107 mg/dL (75-99)
[2020-08-03 16:57] LABS: Glucose,Whole Blood 189 mg/dL (75-99)
--- NOTE | 2020-08-03 19:31 | P.HPIM ---
History of Present Illness H&P Date: 08/03/20 Chief Complaint: Right facial numbness History of presenting complaint: This is a pleasant 44-year-old patient of Dr. Bell. Chronic stable medical conditions include diabetes, hyperlipidemia, alopecia, anticardiolipin antibody positivity, thrombocytopenia. Patient presented to ER with right facial numbness present for about 3 days and some vision changes. He also felt some dizzy. Also felt the room is spinning around. Last her for about half an hour. The following 2 days she felt she was just not herself. Yesterday morning she noticed that the right side of face and tired of right upper extremity and the right side of her body was numb lasted for a couple of minutes also for a short time she could not see on the right side. Subsequently his symptoms are greatly improved with the meantime. Review of systems: GEN.: None EYES: As above HEENT: None NECK: None RESPIRATORY: None CARDIOVASCULAR: None GASTROINTESTINAL: None GENITOURINARY: None MUSCULOSKELETAL: None LYMPHATICS: None HEMATOLOGICAL: None PSYCHIATRY: None NEUROLOGICAL: As above Past medical history to include: Diabetes, hyperlipidemia, alopecia, anticardiolipin antibody positivity, throbbing 100 charlene Social history: with 2 children. Patient smoked for 25 years stopped in 2018. Alcohol occasionally. Occasional marijuana use. Physical examination: VITAL SIGNS: 98.8, 84, 16, 97/56, 98% room air GENERAL: BMI 33.8, sitting 1 chair, comfortable. EYES: Pupils equal. Conjunctiva normal. HEENT: External appearance of nose and ears normal, oral cavity grossly normal. NECK: JVD not raised; masses not palpable. HEART: First and second heart sounds are normal; no edema. LUNGS: Respiratory rate normal; clear to auscultation. ABDOMEN: Soft, nontender, liver spleen not palpable, no masses palpable. PSYCH: Alert and oriented x3; mood and affect normal. NEUROLOGICAL: Cranial nerves grossly intact; no facial asymmetry, power and sensation grossly intact. LYMPHATICS: No lymph nodes palpable in the axilla and neck INVESTIGATIONS, reviewed in the clinical context: WBC 6.1 hemoglobin 13.8 platelets 213 potassium 4.0 creatinine 0.49 Troponin I less than 0.012 TSH 1.9 Anus screen positive. Negative: Double-stranded DNA, anticardiolipin IgG antibody 2.1, cardiolipin IgG negative anticardiolipin IgM 16.8 Coronavirus [PCR] not detected EKG tracing personally reviewed by me-normal sinus rhythm, prolonged QT Computed tomography scan of the brain without contrast: Infarct involving the left inferior occipital lobe, remote infarct. CT angiogram head and neck: No significant abnormality seen 2-D echocardiogram: EF 55-60%. Bubble study unable to be done. Brain MRI shows restricted diffusion involving the region of the inferior left occipital lobe. Assessment and plan: -Acute ischemic stroke in the left occipital lobe symptoms of right upper quadrant todd-anopsia. Follow with neurology Positive anticardiolipin antibodies with a diagnosis over 20 years ago. Diabetes mellitus type 2 Continue with jardiance. Follow Accu-Cheks -Hyperlipidemia Placed on Lipitor -Obesity BMI 33.8 Patient is on aspirin and Lipitor Plavix. Care was discussed with the patient. Follow with neurology and cardiology. They're planning for a [facility] Past Medical History Past Medical History: Diabetes Mellitus, Hyperlipidemia Additional Past Medical History / Comment(s): takes lisinopril due to diabetes, not high BP; alopecia, anticardiolipin antibody positive, thrombocytopenia History of Any Multi-Drug Resistant Organisms: None Reported Past Surgical History: Tubal Ligation Additional Past Surgical History / Comment(s): COLONOSCOPY x2 Past Anesthesia/Blood Transfusion Reactions: No Reported Reaction Past Psychological History: No Psychological Hx Reported Smoking Status: Current some day smoker Past Alcohol Use History: Occasional Past Drug Use History: Marijuana - Past Family History Mother Family Medical History: No Reported History Additional Family Medical History / Comment(s): Mother had a [place] in her 50s. Father History Unknown: Yes Medications and Allergies Home Medications Medication Instructions Recorded Confirmed Type Empagliflozin [Jardiance] 10 mg PO DAILY 08/02/20 08/02/20 History Omeprazole 20 mg PO DAILY 08/02/20 08/02/20 History lisinopriL [Zestril] 5 mg PO DAILY 08/02/20 08/02/20 History Allergies Allergy/AdvReac Type Severity Reaction Status Date / Time No Known Allergies Allergy Verified 08/02/20 07:49 Physical Exam Vitals: Vital Signs Temp Pulse Pulse Resp BP BP Pulse Ox 08/03/20 07:40 98.8 F 84 16 97/56 98 08/03/20 04:00 98.4 F 69 16 109/71 98 08/03/20 02:00 68 17 08/03/20 00:00 98.1 F 68 17 94/56 97 08/02/20 20:00 97.9 F 77 16 95/52 96 08/02/20 18:18 98.1 F 89 16 105/70 96 08/02/20 17:47 97.9 F 87 18 105/55 98 08/02/20 16:05 87 18 105/55 98 08/02/20 14:05 85 18 99/58 97 08/02/20 12:05 97.9 F 90 18 119/58 98 08/02/20 11:46 81 18 109/90 95 08/02/20 11:05 98.0 F 80 18 112/48 98 Intake and Output 08/02/20 08/03/20 08/03/20 22:59 06:59 14:59 Intake Total 120 240 Balance 120 240 Intake: Oral 120 240 Other: Voiding Method Toilet Toilet # Voids 1 Weight 92.2 kg Results CBC & Chem 7: 08/02/20 08:31 08/02/20 08:31 Labs: Abnormal Lab Results - Last 24 Hours (Table) 08/02/20 08/02/20 08/03/20 Range/Units 12:56 20:03 05:30 POC Glucose (mg/dL) 149 H 128 H (75-99) mg/dL Triglycerides (<150) mg/dL HDL Cholesterol (40-60) mg/dL DARA Screen POSITIVE A (NEGATIVE) 08/03/20 Range/Units 07:51 POC Glucose (mg/dL) (75-99) mg/dL Triglycerides 189 H (<150) mg/dL HDL Cholesterol 39 L (40-60) mg/dL DARA Screen (NEGATIVE) Thrombosis Risk Factor Assmnt - Choose All That Apply Any of the Below Risk Factors Present?: Yes Each Factor Represents 1 point: Age 41-60 years, Obesity (BMI >25) Other Risk Factors: No Each Risk Factor Represents 5 Points: Stroke (< 1 month) Thrombosis Risk Factor Assessment Total Risk Factor Score: 7 Thrombosis Risk Factor Assessment Level: High Risk
[2020-08-03 20:00] LABS: Glucose,Whole Blood 188 mg/dL (75-99)
[2020-08-04 05:28] LABS: Glucose,Whole Blood 131 mg/dL (75-99)
[2020-08-04] MEDS: PANTOPRAZOLE 40 MG TABLET PO SCH (06:40)
[2020-08-04] MEDS ORDERED: fentaNYL (PF) 50 MCG/ML 2 ML AMP ONE (08:04)
[2020-08-04] MEDS ORDERED: SODIUM CHLORIDE 0.9% 500 ML 500 ML IV ONE (08:25)
[2020-08-04] MEDS: BENZOCAINE SPRAY 1 CAN TOPICAL ONE ×2 (08:31→08:38)
[2020-08-04] MEDS ORDERED: fentaNYL (PF) 50 MCG/ML 2 ML AMP IVP ONE (08:44)
[2020-08-04] MEDS ORDERED: MIDAZOLAM 2 MG/2 ML VIAL IVP ONE ×2 (08:45→08:46)
--- NOTE | 2020-08-04 09:46 | PN ---
PROGRESS NOTE Mrs. Adam is a 44-year-old female with no prior documented history of cardiac disease who presented with a neurological event with right-sided numbness and was found to have abnormal MRI. She has continued to have some numbness, although better. She denies any chest pain. Continues to be in sinus mechanism. She denies any dizziness or palpitation. She denies any nausea. She continues to be on aspirin once a day, Lipitor 80 mg daily, Plavix 75 mg daily, Jardiance 10 mg daily, Protonix 40 mg daily. PHYSICAL EXAMINATION: Blood pressure 113/50 with the heart rate in the 70s. LUNGS: Clear. HEART: Regular rate and rhythm. S1, S2. No S3. No rub. ABDOMEN: Soft, nontender. EXTREMITIES: No edema. She underwent transesophageal echocardiogram revealed normal left ventricular size and systolic function with normal appearance left atrial appendage with no evidence of intracardiac shunting, but there was evidence of a mass at the tip of the anterior mitral valve leaflets measuring 1.1 cm with mild mitral regurgitation. The etiology of that abnormality is unclear. It could be related to a vegetation. She underwent a duplex scan of her upper extremities that revealed a thrombosis in the right upper extremity. IMPRESSION: 1. Evidence of cerebrovascular accident, etiology unclear. Patient had the abnormality on her transesophageal echocardiogram that could represent a prior endocarditis, although she has no recent dental work and no prior history of infection. The thrombosis in the right upper extremity it is of unclear etiology. Workup is in progress. She has been seen by the hematology service. 2. History of diabetes mellitus. RECOMMENDATION: From the cardiac standpoint, I will obtain blood cultures to rule out any evidence of infectious process. We will continue observation and depending on the results of her workup, further recommendation will be made. MMODL / IJN: [id number] /
[2020-08-04] MEDS: ATORVASTATIN 80 MG TAB PO SCH (10:22)
[2020-08-04] MEDS: ASPIRIN 81 MG PO SCH (10:22)
[2020-08-04] MEDS: CLOPIDOGREL 75 MG TAB PO SCH (10:22)
[2020-08-04] MEDS: ENOXAPARIN 40 MG/0.4 ML SYRINGE SQ SCH (10:23)
[2020-08-04 10:34] LABS: Anti-Thrombin III Antigen 100 % (80 - 120)
[2020-08-04] MEDS: SODIUM CHLORIDE 0.9% 1,000 ML IV SCH (10:36)
--- NOTE | 2020-08-04 10:49 | ECHOT ---
TRANSESOPHAGEAL ECHOCARDIOGRAM INDICATION: Evaluation of cardiac source for stroke. PROCEDURE: After explaining the procedure to the patient, its risks and the complications, blood pressure, heart rate, O2 saturation was monitored. The throat was sprayed with Cetacaine. She received 50 mcg intravenous fentanyl, 3 mg intravenous Versed. The probe was introduced in the esophagus without difficulty. Images were obtained. Following that, the probe was removed. There was no immediate complication. FINDINGS: Left atrial size is normal. Left atrial appendage is normal. Left ventricular size and systolic function normal. The tricuspid and aortic valve are normal. The mitral valve revealed a mass attached to the tip of the anterior mitral valve leaflet measuring 1.1 cm that could represent a vegetation. No shunting was noted across the interatrial septum by the bubble study and Valsalva maneuver. No pericardial effusion was noted. The descending thoracic aorta appears to be normal. Doppler pulse wave and color Doppler obtained and revealed a mild mitral with trace tricuspid regurgitation. There was no shunting by color Doppler study. CONCLUSION: 1. Normal left ventricular size and systolic function. 2. Normal appearance left atrial appendage. 3. No evidence shunting. 4. A mass attached to the tip of the anterior mitral valve leaflet measuring 1.1 cm of unclear etiology, rule out vegetation, with mild mitral regurgitation. 5. Trace tricuspid regurgitation. 6. Normal appearance of the descending thoracic aorta. MMODL / IJN: [id number] /
[2020-08-04 11:49] LABS: Glucose,Whole Blood 190 mg/dL (75-99)
--- NOTE | 2020-08-04 12:00 | P.PN ---
Subjective Progress Note Date: 08/04/20 Patient was seen at bedside and the she stated that that she's doing slightly better today compared to initial presentation she feels like she is seeing more on the right upper quadrant that she feels like she sees more light but is not back to baseline. She denies any further weakness, numbness, any worsening of her visual disturbance, difficulty getting her words out. Objective - Vital Signs Vital signs: Vital Signs Temp 98.1 F 08/04/20 08:00 Pulse 91 08/04/20 11:00 Resp 16 08/04/20 11:00 BP 90/61 08/04/20 11:00 Pulse Ox 98 08/04/20 11:00 Intake & Output 08/03/20 08/04/20 08/04/20 18:59 06:59 18:59 Intake Total 730 85 Balance 730 85 Weight 92.3 kg Intake: IV 10 85 0.9 10 10 Oral 720 Other: Voiding Method Toilet Toilet Toilet # Voids 3 2 # Bowel Movements 1 - Exam GENERAL: The patient is lying in bed and is not in acute distress. NEUROLOGICAL: Higher mental function: The patient is awake, alert, oriented to self, place and time. Patient is following commands. No aphasia and no neglect. Cranial nerves: The pupils are round, equal and reactive to light and accommodation. Visual torres: right upper quadrant hemianopsia to confrontation. Extraocular movement is intact no nystagmus is noted. Facial sensation is normal to touch throughout. The facial strength is normal throughout. Hearing is normal bilaterally to hand rub. Tongue is midline and moved [id number] without any difficulty. No dysarthria is noted. Shoulder shrug is normal bilaterally. Motor: Gait is deferred. The strength is 5 over 5 throughout. Normal tone and bulk. Cerebellum: Normal finger to nose heel to larson bilaterally. Sensation: Sensation is normal to touch throughout. Reflexes (right/left): 2+ Plantars are downgoing bilaterally. - Labs CBC & Chem 7: 08/02/20 08:31 08/02/20 08:31 Labs: Abnormal Lab Results - Last 24 Hours (Table) 08/03/20 08/03/20 08/03/20 Range/Units 11:36 16:47 19:58 POC Glucose (mg/dL) 107 H 189 H 188 H (75-99) mg/dL 08/04/20 Range/Units 05:27 POC Glucose (mg/dL) 131 H (75-99) mg/dL Assessment and Plan Assessment: Subacute ischemic stroke (left occipital lobe with extension towards the posterior thalamus) with symptoms of right upper quadrant hemianposia). 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 I will consider starting the patient on anticoagulation down the line but will speak with cardiology and hematology regarding this before I proceed. I'll also start the patient on Lipitor 80 mg daily for secondary stroke prophylaxis. * MRI the brain is reported as subacute infarct over the left occipital lobe with extension towards the posterior thalamus. There is also minimal additional scattered hyperintensity present within the deep white matter which seems chronic upon reviewing it. * 2-D echo was reported as overall left ventricle systolic function is normal with ejection fraction between 55-60%. Bubble study was done but it was limited because unable to rule out due to poor image quality. Left atrial size is normal. Normal left atrial size by volume. * Transesophageal echocardiograms on 08/04/2020: Is reported as normal left ventricular size and systolic function. Normal appearance of left atrial appendage. No evidence of shunting. Mass attached the tip of the anterior mitral valve leaflet measuring 1.1 cm of unclear etiology, rule out vegetation, with mitral regurgitation. Trace tricuspid regurgitation. * Cardiology team is on board and that he ordered blood cultures. * No DVT of the upper and lower extremities bilaterally * Lipid panel: Triglyceride 189, cholesterol is 150, LDL 73, HDL 39. LDL goal in stroke is <70. * TSH: 1.93 (normal). * Continue every 4 hours neuro checks. * Continue continuous cardiac monitoring. * Per hematology team they stated that the the anti-cardiolipin antibodies can be present during . The recommended repeat the anticardiolipin ant ibody testing. And they also no information from the patient that she was taking aspirin during her 3 pregnancies. * Hypercoagulable work-up: Homocysteine level is 6.21 which is normal. DARA screen is positive but the double-stranded DNA is negative. Anti-cardiolipin IgG/IGA/IgM antibody are normal and reported as negative. * Antithrombin II antigen 100% (normal), Protein S antigen 89% (normal). * Pending factor V Leiden, MTHFR genotype, von Willebrand factor, antithrombin III antibody, protein C and protein S antigen antibody. Also pending Beta 2 glycopreint 1. I ordered Factor 7 and 8 antibody (send out test). I ordered antistreptolysin O antibody (ASO). * I ordered an event monitor. * Physical therapy, occupational therapy and HYDRAULIC SPINNER are consulted. The plan is discussed with the patient. Will continue to follow Roberto Ludwig MD Neuro-Hospitalist Time with Patient: Less than 30
[2020-08-04] MEDS ORDERED: HEPARIN SODIUM 1,000 UN/ML (10ML VL) IV ONE (12:01)
[2020-08-04] MEDS ORDERED: HEPARIN SODIUM 1,000 UN/ML (10ML VL) IV PRN (12:01)
[2020-08-04] MEDS: HEPARIN SOD,PORK IN 0.45% NACL 25,000 UNIT in 0.45% NACL 1 250ML.BAG IV SCH (13:09)
[2020-08-04 13:19] LABS: Basophils % (A) 1 %; Eosinophils # (A) 0.3 k/uL (0-0.7); Eosinophils % (A) 5 %; HCT 40.8 % (34.0-46.0); HGB 13.2 gm/dL (11.4-16.0); Lymphocytes # (A) 0.3 k/uL (1.0-4.8); Lymphocytes % (A) 5 %; MCH 27.8 pg (25.0-35.0); MCHC 32.3 g/dL (31.0-37.0); MCV 86.2 fL (80.0-100.0); Mean Platelet Volume 6.8; Monocytes # (A) 0.2 k/uL (0-1.0); Monocytes % (A) 3 %; Neutrophils # (A) 4.4 k/uL (1.3-7.7); Neutrophils % (A) 85 %; Platelet Count 210 k/uL (150-450); RBC 4.73 m/uL (3.80-5.40); RDW 14.9 % (11.5-15.5); WBC 5.2 k/uL (3.8-10.6)
[2020-08-04 13:54] LABS: INR 1.1 (<1.2); Partial Thromboplastin Time 43.8 sec (22.0-30.0); Prothrombin Time 11.4 sec (9.0-12.0)
[2020-08-04] MEDS: ACETAMINOPHEN TAB 325 MG TAB PO PRN ×2 (15:38→21:08)
--- NOTE | 2020-08-04 16:20 | P.GSCN ---
<Blanco Gao - Last Filed: 08/04/20 15:32> History of Present Illness Consult date: 08/04/20 Reason for Consult: Abnormal mitral valve on transesophageal echocardiogram. A mass attached to the tip of the anterior mitral valve leaflet measuring 1.1 cm of unclear etiology. Requesting physician: Fatou Arias History of present illness: This is a 44-year-old female patient who is followed by nurse practitioner Krystyna Masterson on an outpatient basis. 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 Lobato from hematology in [facility]. On Saturday07/30/2020 the patient reports that she was having some episodes of dizziness throughout the day and around 10 PM in the evening stated she had an episode where she felt paralyzed for about 10 minutes and could not move any part of her body. On 07/31/2020 the patient reports that she felt like she was foggy off-and-on throughout the day with episodes of dizziness. She also reports that on Saturday she felt like she had lost her peripheral vision to her right eye, which states continues even today. On 08/01/2020 the patient continued to have episodes of feeling foggy and episodes of dizziness and while at work on Saturday evening she reports that she started having episodes of feeling numb to her right face, her teeth, her tongue, her right side of her body all the way to her waist. Due to these intermittent episodes of dizziness and numbness she presented to the emergency department here at [facility] on 08/02/2020. She denies any recent fever, chills, nausea, vomiting, diarrhea, constipation, diplopia, syncope, changes in her speech, facial asymmetry or sensation deficits. The patient also reports that in the summer she was having some complaints of severe intermittent episodes of abdominal pain which felt like stabbing pains. She presented to see Krystyna Campa for her complaints of abdominal discomfort. Subsequently, a computed tomography scan on 12/22/2019 was completed which showed varices within subcutaneous fat of the lower chest and abdomen especially in the left upper quadrant and mid abdomen, hepatosplenomegaly, possible previous splenic infarction, possible more recent renal infarction, considered thrombosis, embolism. The patient also has a history of a bone marrow biopsy in 2017 which was unremarkable. Subsequently, due to her presentation into the emergency department a computed tomography scan without contrast of her brain was completed which showed findings consistent with infarct involving the left inferior occipital lobe, probable remote infarct had of the caudate on the right. For further evaluation and MRI of her brain was completed which showed restricted diffusion involving the region of the inferior left occipital lobe as noted on the CT scan with extension towards the region of the posterior thalamus, some minimal additional scattered hyperintensities present within the deep white matter, and no hemorrhage or hydrocephalus. Her chest x-ray showed course and interstitial which may represent chronic interstitial lung disease. A 2-D echocardiogram was completed on 08/02/2020 which showed an overall left ventricular systolic function to be normal with an ejection fraction between 55 and 60%, trace mitral valve regurgitation and trace tricuspid valve regurgitation. For further evaluation on 08/04/2020 the patient also underwent a transesophageal echocardiogram which demonstrated a normal left ventricular size and systolic function, no evidence of shunting, a mass attached to the tip of the anterior mitral valve leaflet measuring 1.1 cm of unclear etiology, rule out vegetation with mild mitral valve regurgitation and mild tricuspid valve regurgitation. A venous duplex of her bilateral lower extremities show no evidence of DVT and a venous duplex of her upper extremities showed no left upper extremity deep vein thrombosis although which showed positive for DVT to her right arm, non-occlusive thrombus noted within the right jugular, mediastinal subclavian vein. Subsequently, due to the patient's presenting symptoms and findings on her transesophageal echocardiogram a consult was placed to Dr. Jorge Roe from cardiothoracic surgery for further evaluation and treatment recommendations. Review of Systems A 14 point review of systems was completed and was negative except as mentioned in the HPI. Past Medical History Past Medical History: Diabetes Mellitus, GERD/Reflux, Hyperlipidemia Additional Past Medical History / Comment(s): takes lisinopril due to diabetes, not high BP; alopecia, anticardiolipin antibody positive, thrombocytopenia, history of elevated liver enzymes, hepatosplenomegaly, splenic infarct and left renal infarct. History of Any Multi-Drug Resistant Organisms: None Reported Past Surgical History: Tubal Ligation Additional Past Surgical History / Comment(s): COLONOSCOPY x2, history of bone marrow biopsy in 2017 Past Anesthesia/Blood Transfusion Reactions: No Reported Reaction Past Psychological History: No Psychological Hx Reported Smoking Status: Current some day smoker Past Alcohol Use History: Occasional Past Drug Use History: Marijuana - Past Family History Mother Family Medical History: No Reported History Additional Family Medical History / Comment(s): Mother had a MT in her 50s. Father History Unknown: Yes Medications and Allergies Home Medications Medication Instructions Recorded Confirmed Type Empagliflozin [Jardiance] 10 mg PO DAILY 08/02/20 08/02/20 History Omeprazole 20 mg PO DAILY 08/02/20 08/02/20 History lisinopriL [Zestril] 5 mg PO DAILY 08/02/20 08/02/20 History Allergies Allergy/AdvReac Type Severity Reaction Status Date / Time No Known Allergies Allergy Verified 08/02/20 07:49 Surgical - Exam Vital Signs Temp Pulse Resp BP Pulse Ox 97.5 F L 87 20 121/80 99 08/02/20 07:46 08/02/20 07:46 08/02/20 07:46 08/02/20 07:46 08/02/20 07:46 - General well developed, well nourished, no distress, no pain, obese - Eyes PERRL, normal ocular movement, no icteric - ENT normal pinna, normal nares, normal mucosa, no hearing loss, no congestion - Neck Neck is supple, no lymphadenopathy. no masses, no bruits, trachea midline, no venous distension - Respiratory Lungs sounds essentially clear throughout. No wheezes, rhonchi or crackles. Respirations are symmetrical and nonlabored. - Cardiovascular Regular rhythm and rate. S1 and S2 present, negative for S3, gallop or murmur. No edema present. - Abdomen Abdomen is soft, nontender and nondistended. Active bowel sounds present all 4 abdominal quadrants. No guarding or rigidity. No organomegaly appreciated. - Genitourinary Deferred - Rectum Deferred - Integumentary no rash, no growths, no abnormal pigmentation - Neurologic normal coordination, normal sensation - Musculoskeletal Moves all 4 extremities with equal strength. normal gait, normal posture - Psychiatric oriented to time, oriented to person, oriented to place, speech is normal, memory intact Results - Labs 08/04/20 12:26 08/02/20 08:31 Abnormal Lab Results - Last 24 Hours (Table) 08/03/20 08/03/20 08/03/20 Range/Units 11:36 16:47 19:58 Lymphocytes # (1.0-4.8) k/uL APTT (22.0-30.0) sec POC Glucose (mg/dL) 107 H 189 H 188 H (75-99) mg/dL 08/04/20 08/04/20 08/04/20 Range/Units 05:27 11:48 12:26 Lymphocytes # 0.3 L (1.0-4.8) k/uL APTT (22.0-30.0) sec POC Glucose (mg/dL) 131 H 190 H (75-99) mg/dL 08/04/20 Range/Units 12:26 Lymphocytes # (1.0-4.8) k/uL APTT 43.8 H (22.0-30.0) sec POC Glucose (mg/dL) (75-99) mg/dL - Imaging Chest x-ray: report reviewed, image reviewed Additional studies: CAT scan and MRI of the brain scan report reviewed. 2-D echocardiogram and transesophageal echocardiogram report reviewed. Assessment and Plan Assessment: 1. Subacute ischemic stroke 2. A mass attached to the tip of the anterior mitral valve leaflet measuring 1.1 cm of unclear etiology, rule out vegetation 3. Diabetes mellitus type 2 4. Anticardiolipin antibody positive, diagnosed 20 years ago while 5. History of hepatosplenomegaly 6. History of splenic infarct 7. History of left renal infarct 8. History of elevated liver enzymes 9. History of thrombocytopenia followed by Dr. Mendiola from hematology on an outpa tient basis 10. Obesity 11. Chronic ongoing tobacco dependence 12. Occasional marijuana use 13. Occasional EtOH use 14. Family history of early onset coronary artery disease with her mom having a myocardial infarction in her 50s 15. GERD Plan: The patient was seen and examined at her bedside on the cardiac stepdown unit. Her chart and diagnostics were reviewed. I spoke with Monalisa Masterson nurse practitioner who follows the patient on an outpatient basis and her old chart has been obtained and has been placed on her chart. Her case was discussed in detail with Dr. Jorge Roe from cardiothoracic surgery. Recommend obtaining blood cultures, CT panoramic facial, and consult dentistry for further evaluation. Await blood culture results and dental clearance. Medical management and other comorbidities per primary care service. More recommendations to follow based on patient's clinical course. Thank you Dr. Arias for this consult and we look for to working with you in the care of this patient. Time with Patient: Greater than 30 <Alexa Lui - Last Filed: 08/05/20 12:54> Surgical - Exam Vital Signs Temp Pulse Resp BP Pulse Ox 97.5 F L 87 20 121/80 99 08/02/20 07:46 08/02/20 07:46 08/02/20 07:46 08/02/20 07:46 08/02/20 07:46 Results - Labs 08/05/20 07:46 08/02/20 08:31 Abnormal Lab Results - Last 24 Hours (Table) 08/04/20 08/04/20 08/04/20 Range/Units 12:26 12:26 19:36 Lymphocytes # 0.3 L (1.0-4.8) k/uL APTT 43.8 H 110.7 H* (22.0-30.0) sec POC Glucose (mg/dL) (75-99) mg/dL C-Reactive Protein (<10.0) mg/L 08/04/20 08/05/20 08/05/20 Range/Units 19:45 06:07 07:46 Lymphocytes # 0.3 L (1.0-4.8) k/uL APTT (22.0-30.0) sec POC Glucose (mg/dL) 121 H 127 H (75-99) mg/dL C-Reactive Protein (<10.0) mg/L 08/05/20 08/05/20 Range/Units 07:46 08:46 Lymphocytes # (1.0-4.8) k/uL APTT 61.2 H (22.0-30.0) sec POC Glucose (mg/dL) (75-99) mg/dL C-Reactive Protein 11.7 H (<10.0) mg/L Microbiology - Last 24 Hours (Table) 08/04/20 09:24 Blood Culture - Preliminary Blood No Growth after 24 hours Assessment and Plan Assessment: Patient seen and examined . All tests reviewed. Very interesting case of a mass on the mitral valve with evidence of embolization last summer to spleen and kidney and currently brain. Long standing diabetes, hx of positive anti-cardiollipins Abs , Hx of Alopacia 2016 responded to steroids, ? Hx of Auto-immune hepatitis with abdominal varices (Portal hyppertension) seen on CTScan of the abdomen last summer etc... regular dental visits with only cleaning warranted.... Differential diagnosis includes and not limited to Endocarditis, benign mass (myxoma, fibroelasoma), Libman-Sachs endocarditis..... Would await blood culture results, request ID and rheumatology consult, hepatology Dr Tineo (known to her), Obtain CT A/P to re-evaluate abdominal viscera and R/O any abcess transforrmation of her prior infarcted areas in the spleen and kidneys....closer look to liver and stigmata of portal hyertension vs splenic vein thrombosis ... .rest of Rx per neurology i.e anticoagulation ....will follow closely with you. Discussed with Dr Arias. ALEXA LUI MD
[2020-08-04] MEDS: INSULIN ASPART (NovoLOG) 100 UNIT/ML VIAL SQ SCH ×2 (16:32→23:35)
[2020-08-04 16:33] LABS: Glucose,Whole Blood 96 mg/dL (75-99)
--- NOTE | 2020-08-04 17:08 | P.PN ---
Subjective Progress Note Date: 08/04/20 Principal diagnosis: Hx anticardiolopin ab positive during preg, presenting with TIA In f/u today pt denies any FLANAGAN, nausea, unilateral deficit that is progressive, no bleeding Objective - Vital Signs Vital signs: Vital Signs Temp 98.1 F 08/04/20 15:55 Pulse 78 08/04/20 15:55 Resp 16 08/04/20 15:55 BP 115/57 08/04/20 15:55 Pulse Ox 98 08/04/20 15:55 Intake & Output 08/03/20 08/04/20 08/04/20 18:59 06:59 18:59 Intake Total 730 325 Balance 730 325 Weight 92.3 kg Intake: IV 10 85 0.9 10 10 Oral 720 240 Other: Voiding Method Toilet Toilet Toilet # Voids 3 2 # Bowel Movements 1 - Constitutional Constitutional Comment(s): cushingoid appearance General appearance: Present: average body habitus, cooperative, no acute distress - EENT Eyes: Present: anicteric sclerae, EOMI ENT: Present: hearing grossly normal - Respiratory Respiratory: bilateral: CTA - Peripheral edema leg Peripheral Edema: bilateral: None - Gastrointestinal General gastrointestinal: Present: normal bowel sounds, soft - Psychiatric Psychiatric: Present: A&O x's 3, appropriate affect, intact judgment & insight - Labs CBC & Chem 7: 08/04/20 12:26 08/02/20 08:31 Labs: Abnormal Lab Results - Last 24 Hours (Table) 08/03/20 08/03/20 08/03/20 Range/Units 11:36 16:47 19:58 Lymphocytes # (1.0-4.8) k/uL APTT (22.0-30.0) sec POC Glucose (mg/dL) 107 H 189 H 188 H (75-99) mg/dL 08/04/20 08/04/20 08/04/20 Range/Units 05:27 11:48 12:26 Lymphocytes # 0.3 L (1.0-4.8) k/uL APTT (22.0-30.0) sec POC Glucose (mg/dL) 131 H 190 H (75-99) mg/dL 08/04/20 Range/Units 12:26 Lymphocytes # (1.0-4.8) k/uL APTT 43.8 H (22.0-30.0) sec POC Glucose (mg/dL) (75-99) mg/dL - Imaging and Cardiology MRI - head: report reviewed Assessment and Plan (1) Anticardiolipin antibody positive Narrative/Plan: Positive during . Pt took asa during her 3 pregnancies. Anticardiolipin antibodies can be present during . Testing was done here, showing patient is not positive for any antibodies. Would recommend testing for anticardiolipin antibodies one more time to ensure they are not present before being able to say, with certainty, that patient does not have antibodies. Agree with Neurology plan for treatment of acute TIA. DARA positive Current Visit: Yes Status: Suspected Priority: High Code(s): R76.0 - RAISED ANTIBODY TITER SNOMED Code(s): 308701008 (2) CVA (cerebral vascular accident) Current Visit: Yes Status: Acute Priority: High Code(s): I63.9 - CEREBRAL INFARCTION, UNSPECIFIED SNOMED Code(s): 365170962 Plan: Rt jugular and medial subclavian thrombosis, all other extremities neg for DVT. Heparin drip started. Discussed with Attending Reviewed Hematology work up and plans with pt and . Pending lupus anticoagulant-if positive, in conjunction with stroke and now DVT, recommendation will be for lifelong anticoagulation with coumadin. If negative then other plans anticoagulation may be more appropriate. She will follow up with Dr. Mendiola on DC for further plans. Will ensure labs and notes get to Dr. Mendiola. Cont heparin drip while pending procedures. Transition to coumadin, can use treatment dose lovenox for bridging if needed for discharge. Discussed with C ase Wheel Buffer. Pt states she has had ablation for menorrhagia in the past. Discussed bleeding risk on anticoagulation. She will need to monitor and report to Hand Engraver as needed. Did not recommend controlling bleeding with hormonal control. Time with Patient: Greater than 30
[2020-08-04 18:45] LABS: Von Willebrand Factor Antigen 170 % (52-214)
[2020-08-04 19:55] LABS: Glucose,Whole Blood 121 mg/dL (75-99)
[2020-08-04] MEDS ORDERED: ALPRAZolam 0.5 MG TAB PO PRN (20:25)
--- NOTE | 2020-08-04 21:31 | P.PN ---
Progress Note - Text Progress Note Date: 08/04/20 Chief Complaint: Right facial numbness History of presenting complaint: This is a pleasant 44-year-old patient of Dr. Bell. Chronic stable medical conditions include diabetes, hyperlipidemia, alopecia, anticardiolipin antibody positivity, thrombocytopenia. Patient presented to ER with right facial numbness present for about 3 days and some vision changes. He also felt some dizzy. Also felt the room is spinning around. Last her for about half an hour. The following 2 days she felt she was just not herself. Yesterday morning she noticed that the right side of face and tired of right upper extremity and the right side of her body was numb lasted for a couple of minutes also for a short time she could not see on the right side. Subsequently his symptoms are greatly improved with the meantime. Admitted with acute stroke in the left occipital lobe. Patient on Plavix Lipitor aspirin. Patient also found to have a DVT of the right jugular subclavian vein. Today: Patient underwent AKHIL. Found to have a massiveof the tip of the anterior mitral valve leaflet 1.1 cm. on IV heparin Review of systems: Was done for constitutional, cardiovascular, GI, pulmonary. relevant finding as above Active Medications Acetaminophen (Acetaminophen Tab 325 Mg Tab) 650 mg PO Q6HR PRN PRN Reason: Fever and/ or Pain Last Admin: 08/04/20 21:08 Dose: 650 mg Documented by: Alprazolam (Alprazolam 0.5 Mg Tab) 0.5 mg PO TID PRN PRN Reason: Anxiety Last Admin: 08/04/20 21:06 Dose: 0.5 mg Documented by: Aspirin (Aspirin 81 Mg) 81 mg PO DAILY [facility] Last Admin: 08/04/20 10:22 Dose: 81 mg Documented by: Atorvastatin Calcium (Atorvastatin 80 Mg Tab) 80 mg PO DAILY [facility] Last Admin: 08/04/20 10:22 Dose: 80 mg Documented by: Clopidogrel Bisulfate (Clopidogrel 75 Mg Tab) 75 mg PO DAILY [facility] Last Admin: 08/04/20 10:22 Dose: 75 mg Documented by: Heparin Sodium (Porcine) (Heparin Sodium 1,000 Un/Ml (10ml Vl)) 0 unit IV PER PROTOCOL PRN; Protocol PRN Reason: Low PTT Sodium Chloride (Saline 0.9%) 1,000 mls @ 20 mls/hr IV .Q24H [facility] Last Admin: 08/04/20 10:36 Dose: Not Given Documented by: Heparin Sodium/Sodium Chloride (25,000 unit/ Sodium Chloride) 250 mls @ 9.996 mls/hr IV .Q24H [facility]; Protocol Last Admin: 08/04/20 13:09 Dose: 10.83 units/kg/hr, 9.996 mls/hr Documented by: Insulin Aspart (Insulin Aspart (Novolog) 100 Unit/Ml Vial) 0 unit SQ ACHS [facility]; Protocol Last Admin: 08/04/20 16:32 Dose: Not Given Documented by: Empagliflozin [ Jardiance] 10 Mg Tablet 10 mg PO DAILY [facility] Last Admin: 08/04/20 09:38 Dose: Not Given Documented by: Pantoprazole Sodium (Pantoprazole 40 Mg Tablet) 40 mg PO AC-BRKFST [facility] Last Admin: 08/04/20 06:40 Dose: Not Given Documented by: Past medical history to include: Diabetes, hyperlipidemia, alopecia, anticardiolipin antibody positivity, throbbing 100 charlene Social history: with 2 children. Patient smoked for 25 years stopped in 2017. Alcohol occasionally. Occasional marijuana use. Physical examination: VITAL SIGNS: 98.1, 78, 16, 115/57, 98% room air GENERAL: BMI 33.8, sitting up, comfortable. EYES: Pupils equal. Conjunctiva normal. HEENT: External appearance of nose and ears normal, oral cavity grossly normal. NECK: JVD not raised; masses not palpable. HEART: First and second heart sounds are normal; no edema. LUNGS: Respiratory rate normal; clear to auscultation. ABDOMEN: Soft, nontender, liver spleen not palpable, no masses palpable. PSYCH: Alert and oriented x3; mood and affect normal. INVESTIGATIONS, reviewed in the clinical context: August 04: WBC 5.2 hemoglobin 13.2 WBC 6.1 hemoglobin 13.8 platelets 213 potassium 4.0 creatinine 0.49 Troponin I less than 0.012 TSH 1.9 Antinuclear antibody: screen positive. Negative: Double-stranded DNA, anticardiolipin IgG antibody 2.1, cardiolipin IgG negative anticardiolipin IgM 16.8 Coronavirus [PCR] not detected EKG tracing personally reviewed by me-normal sinus rhythm, prolonged QT Computed tomography scan of the brain without contrast: Infarct involving the left inferior occipital lobe, remote infarct. CT angiogram head and neck: No significant abnormality seen 2-D echocardiogram: EF 55-60%. Bubble study unable to be done. Brain MRI shows restricted diffusion involving the region of the inferior left occipital lobe. Ultrasound Doppler upper extremity: Venous thromboses right upper extremity to include the jugular and subclavian vein. Assessment and plan: -Acute ischemic stroke in the left occipital lobe symptoms of right upper quadrant todd-anopsia. Follow with neurology On aspirin, Lipitor, Plavix -Acute DVT in the right jugular and subclavian vein. On IV heparin -1.1 cm mass on anterior mitral valve leaflet Cardiothoracic surgery consulted Positive anticardiolipin antibodies with a diagnosis over 20 years ago. Diabetes mellitus type 2 Continue with jardiance. Follow Accu-Cheks -Hyperlipidemia Placed on Lipitor -Obesity BMI 33.8 Weight loss measures and follow-up with PCP -IV heparin monitoring Follow with cardiothoracic surgery. Other medications to continue.
--- NOTE | 2020-08-05 00:02 | CT ---
CT scan of the mandible. History preop valve surgery. Possible infection. Comparison none. Technique Images obtained from the level of the bottom of the mandible to the top of the frontal sinuses withou t contrast. Orbital margins are intact. There is no evidence of retro-orbital mass. There is small mucus retentio n cysts and mucosal thickening in the maxillary sinuses. There is mucosal thickening in the anterior ethmoid sinuses. I see no bony destructive process. Maxilla is intact. Nasal bone is intact. Zygomati c arches appear normal. The mandibular ring is intact. I see no focal bone destruction. I do not see any significant evidence for periodontal disease. There is metal artifact from dental work. Temporomandibular joints appear n ormal. Parotid glands are symmetric. Submandibular salivary glands appear normal. IMPRESSION: Normal mandible. No evidence of any significant dental disease. There is ethmoid and maxillary sinusitis.
[2020-08-05 06:12] LABS: Glucose,Whole Blood 127 mg/dL (75-99)
[2020-08-05] MEDS: INSULIN ASPART (NovoLOG) 100 UNIT/ML VIAL SQ SCH ×4 (07:37→20:33)
[2020-08-05] MEDS ORDERED: ALPRAZolam 0.25 MG TAB PO PRN (07:51)
[2020-08-05] MEDS ORDERED: ALPRAZolam 0.5 MG TAB PO PRN (07:51)
[2020-08-05] MEDS ORDERED: SODIUM CHLORIDE 0.9% 1,000 ML in EMPTY BAG 1 BAG IV ONE (07:51)
[2020-08-05] MEDS ORDERED: ASPIRIN 325 MG TAB PO STA (07:51)
[2020-08-05] MEDS ORDERED: NITROGLYCERIN SL TABS 0.4 MG TAB SUBLINGUAL PRN (07:51)
[2020-08-05] MEDS ORDERED: ATORVASTATIN 80 MG TAB PO STA (07:51)
[2020-08-05] MEDS: PANTOPRAZOLE 40 MG TABLET PO SCH (08:24)
[2020-08-05] MEDS: ASPIRIN 81 MG PO SCH (08:27)
[2020-08-05] MEDS: ATORVASTATIN 80 MG TAB PO SCH (08:28)
[2020-08-05] MEDS: CLOPIDOGREL 75 MG TAB PO SCH (08:28)
[2020-08-05 08:30] LABS: Basophils % (A) 0 %; Eosinophils # (A) 0.3 k/uL (0-0.7); Eosinophils % (A) 5 %; HCT 40.8 % (34.0-46.0); HGB 13.6 gm/dL (11.4-16.0); Lymphocytes # (A) 0.3 k/uL (1.0-4.8); Lymphocytes % (A) 5 %; MCH 28.8 pg (25.0-35.0); MCHC 33.3 g/dL (31.0-37.0); MCV 86.4 fL (80.0-100.0); Mean Platelet Volume 6.7; Monocytes # (A) 0.2 k/uL (0-1.0); Monocytes % (A) 4 %; Neutrophils % (A) 85 %; Platelet Count 211 k/uL (150-450); RBC 4.72 m/uL (3.80-5.40); RDW 14.9 % (11.5-15.5); WBC 5.9 k/uL (3.8-10.6)
--- NOTE | 2020-08-05 10:13 | US ---
EXAMINATION TYPE: US carotid duplex BILAT DATE OF EXAM: 08/05/2020 COMPARISON: NONE CLINICAL HISTORY: Pre-Op Cardiac Surgery. Preop. EXAM MEASUREMENTS: RIGHT: Peak Systolic Velocity (PSV) cm/sec ----- Right CCA: 65.1 ----- Right ICA: 85.3 ----- Right ECA: 69.1 ICA/CCA ratio: 1.3 RIGHT: End Diastole cm/sec ----- Right CCA: 18.1 ----- Right ICA: 34.8 ----- Right ECA: 12.0 LEFT: Peak Systolic Velocity (PSV) cm/sec ----- Left CCA: 83.4 ----- Left ICA: 75.7 ----- Left ECA: 57.4 ICA/CCA ratio: 0.9 LEFT: End Diastole cm/sec ----- Left CCA: 31.8 ----- Left ICA: 35.1 ----- Left ECA: 14.0 VERTEBRALS (direction of flow): Right Vertebral: Antegrade Left Vertebral: Antegrade- limited visualization Rhythm: Normal No elevated velocities, no plaque, no wall thickening and no significant stenosis. IMPRESSION: 1. No evidence of significant hemodynamic stenosis. Criteria for Assigning % of Stenosis / Diameter reduction (Estimation based on the indirect measurements of the internal carotid artery velocities (ICA PSV). 1. Normal (no stenosis)=ICA PSV < 125 cm/s: ratio < 2.0: ICA EDV<40 cm/s. 2. Less than 50% stenosis=ICA PSV < 125 cm/s: ratio < 2.0: ICA EDV<40 cm/s. 3. 50 to 69% stenosis=ICA PSV of 125 to 230 cm/s: ration 2.0 ? 4.0: ICA EDV 40-100 cm/s. 4. Greater than 70% stenosis to near occlusion= ICA PSV > 230 cm/s: ratio > 4.0: ICA EDV > 100 cm/s. 5. Near occlusion= ICA PSV velocities may be low or undetectable: variable ratio and ICA EDV. 6. Total occlusion=unable to detect flow.
--- NOTE | 2020-08-05 10:27 | PN ---
PROGRESS NOTE Mrs. Adam is a 44-year-old female who presented with numbness and evidence to suggest cerebrovascular accident. She underwent a AKHIL yesterday and was found to have a mass measuring 1.1 cm at the tip of the anterior mitral valve leaflets. The patient reports today episodes of abdominal pain that occurred last year and underwent workup including CT scan and was found to have a splenic as well as renal infarct. She was evaluated by GI at that time and Surgery but no further workup was done. She is feeling well otherwise today. She denies any chest pain. She denies any dizziness or palpitation. She denies any nausea. She continues to be on aspirin once a day and Plavix 75 mg daily. She is on IV heparin. PHYSICAL EXAMINATION: Blood pressure 111/50 with a heart rate in the 70s. LUNGS: Clear. HEART: Regular rate and rhythm, S1-S2. No S3 with systolic murmur at the base, no diastolic murmur. ABDOMEN: Soft, nontender. EXTREMITIES: No edema. IMPRESSION: 1. Cerebrovascular accident, probably cardiac in source. 2. Evidence of a mass on the tip of the anterior mitral valve leaflets, could be myxoma or other tumors. There is no history of infectious process in the past. No history of endocarditis. 3. Prior history of abdominal infarct involving the spleen and renal. 4. History of diabetes. RECOMMENDATION: In view of her presentation and findings, she will be seen by cardiovascular surgery today. I have recommended to proceed with cardiac catheterization for preparation for surgical intervention to remove the mass that is most likely the source of her events. I have discussed with her the findings in detail as well as the risks and complication. She has full understanding and agreement. MMODL / IJN: [id number] /
[2020-08-05 10:46] LABS: INR 1.1 (<1.2); Partial Thromboplastin Time 61.2 sec (22.0-30.0); Prothrombin Time 11.3 sec (9.0-12.0)
[2020-08-05] MEDS ORDERED: fentaNYL (PF) 50 MCG/ML 2 ML AMP ONE (11:29)
[2020-08-05] MEDS ORDERED: HEPARIN SODIUM 1,000 UN/ML (10ML VL) ONE (11:29)
[2020-08-05] MEDS ORDERED: LIDOCAINE 1% INJ 10MG/ML (20 ML MDV) ONE (11:29)
[2020-08-05] MEDS ORDERED: VERAPAMIL 2.5 MG/ML 2 ML AMP ONE (11:29)
[2020-08-05 11:41] LABS: Anti-Thrombin III Activity 109 % (79-109)
[2020-08-05] MEDS ORDERED: LIDOCAINE 1% INJ 10MG/ML (20 ML MDV) SQ ONE (12:18)
[2020-08-05] MEDS ORDERED: fentaNYL (PF) 50 MCG/ML 2 ML AMP IV ONE (12:18)
[2020-08-05] MEDS: MIDAZOLAM 2 MG/2 ML VIAL IV ONE ×2 (12:18→12:25)
[2020-08-05] MEDS ORDERED: IV FLUID CONTINUATION 800 ML IV ONE (12:18)
[2020-08-05] MEDS: VERAPAMIL SYRINGE (5 MG/10 ML) INTRAARTER ONE ×2 (12:19→12:25)
[2020-08-05 12:28] LABS: Protein C (Activity) 113 % (71-138)
[2020-08-05] MEDS ORDERED: HEPARIN SODIUM 1,000 UN/ML (10ML VL) IV ONE (12:28)
[2020-08-05] MEDS ORDERED: IOPAMIDOL-370 125ML BTL INJ ONE (12:28)
[2020-08-05] MEDS ORDERED: RX INFO: IV CONTRAST WAS GIVEN 1 EACH MISC MISCELLANE PRN (12:40)
[2020-08-05] MEDS ORDERED: SODIUM CHLORIDE 0.9% 1,000 ML IV SCH (12:45)
[2020-08-05 12:55] LABS: Glucose,Whole Blood 95 mg/dL (75-99)
--- NOTE | 2020-08-05 12:57 | P.PN ---
Subjective Progress Note Date: 08/05/20 Principal diagnosis: Abnormal mitral valve on transesophageal echocardiogram. 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 Lobato from hematology in [facility]. The patient is seen in follow-up today 08/05/2020 at her bedside on the cardiac stepdown unit. She is currently laying in bed, is awake, alert and oriented 3. Denies any complaints of pain, shortness of breath, numbness or tingling to her extremities or dizziness. She does continue to complain of some peripheral vision disturbance to her right eye. Heparin drip remains infusing per protocol. Computed tomography scan of the mandible panoramic view was completed yesterday which demonstrated a normal mandible and no evidence of any significant dental disease. Oxygen saturation are 98% on room air. Remote telemetry showing normal sinus rhythm with slight ST elevation in her lead to heart rate 86 BPM. Objective - Vital Signs Vital signs: Vital Signs Temp 97.4 F L 08/05/20 04:00 Pulse 76 08/05/20 04:00 Resp 18 08/05/20 04:00 BP 111/55 08/05/20 04:00 Pulse Ox 98 08/05/20 04:00 Intake & Output 08/04/20 08/05/20 08/05/20 18:59 06:59 18:59 Intake Total 562 292.458 Balance 562 292.458 Weight 83.2 kg Intake: IV 85 188 0.9 10 Heparin Sod,Pork in 0.45% 188 NaCl 25,000 unit In 0.45 % NaCl 1 250ml.bag @ 10. 83 UNITS/KG/HR 9.996 mls/ hr IV .Q24H [facility] Rx#: [id number] Intake, IV Titration 104.458 Amount Heparin Sod,Pork in 0.45% 104.458 NaCl 25,000 unit In 0.45 % NaCl 1 250ml.bag @ 10. 83 UNITS/KG/HR 9.996 mls/ hr IV .Q24H [facility] Rx#: [id number] Oral 477 Other: Voiding Method Toilet Toilet # Voids 1 1 - Constitutional General appearance: Present: cooperative, no acute distress, obese - EENT Eyes: Present: PERRLA, normal appearance. Absent: scleral icterus ENT: Present: hearing grossly normal - Neck Details: Neck is supple, no JVD, no lymphadenopathy. - Respiratory Details: Lung sounds essentially clear throughout. No wheezes, rhonchi or crackles. Respirations are symmetrical and nonlabored. Oxygen saturation 98% on room air. - Cardiovascular Details: Regular rhythm and rate. S1 and S2 present, negative for S3, gallop or murmur. No edema present. - Gastrointestinal Gastrointestinal Comment(s): Abdomen soft, nontender and nondistended. Active bowel sounds present in all 4 abdominal quadrants. No guarding or rigidity. No organomegaly appreciated. - Genitourinary Genitourinary Comment(s): Continues to void. - Integumentary Integumentary Comment(s): Skin is warm and dry. No clubbing or cyanosis is present. - Neurologic Neurologic Comment(s): Right eye peripheral vision disturbance. PERRLA. - Musculoskeletal Musculoskeletal Comment(s): Moves all 4 extremities with equal strength bilateral. - Psychiatric Psychiatric: Present: A&O x's 3, appropriate affect, intact judgment & insight - Allied health notes Allied health notes reviewed: nursing - Labs CBC & Chem 7: 08/05/20 07:46 08/02/20 08:31 Labs: Abnormal Lab Results - Last 24 Hours (Table) 08/04/20 08/04/20 08/04/20 Range/Units 11:48 12:26 12:26 Lymphocytes # 0.3 L (1.0-4.8) k/uL APTT 43.8 H (22.0-30.0) sec POC Glucose (mg/dL) 190 H (75-99) mg/dL 08/04/20 08/04/20 08/05/20 Range/Units 19:36 19:45 06:07 Lymphocytes # (1.0-4.8) k/uL APTT 110.7 H* (22.0-30.0) sec POC Glucose (mg/dL) 121 H 127 H (75-99) mg/dL - Imaging and Cardiology Computed tomography scan report of the mandible with panoramic view reviewed. Assessment and Plan Assessment: 1. Subacute ischemic stroke 2. A mass attached to the tip of the anterior mitral valve leaflet measuring 1.1 cm of unclear etiology, rule out vegetation 3. Diabetes mellitus type 2 4. Anticardiolipin antibody positive, diagnosed 20 years ago while 5. Acute DVT in the right jugular and subclavian vein 6. History of hepatosplenomegaly 7. History of splenic infarct 8. History of left renal infarct 9. History of elevated liver enzymes 10. History of thrombocytopenia followed by Dr. Mendiola from hematology on an outpatient basis 11. Obesity 12. Chronic ongoing tobacco dependence 13. Occasional marijuana use 14. Occasional EtOH use 15. Family history of early onset coronary artery disease with her mom having a myocardial infarction in her 50s 16. GERD Plan: 1. Continue to optimize medical management, low-dose aspirin, statin, heparin drip per protocol. 2. Preoperative testing and preoperative teaching initiated, with more recommendations to follow once her preoperative testing has been obtained. 3. Dental consult pending. 4. Blood culture results pending. 5. Encourage use of her incentive spirometry 10 times every hour while awake. 6. Medical management and other comorbidities per primary care service. 7. Importance of risk modification discussed with the patient including smoking cessation. 8. Send stat CRP level. 10. We will obtain a computed tomography scan of her abdomen ports/pelvis with and without contrast as she has a history of splenic infarct and left kidney infarct. 11. Consult Dr. Wilder from rheumatology as she reports she has a history of alopecia and anticardiolipin antibody positive. 12. Consult Dr. Tineo from gastroenterology as the patient has a history of splenic infarct and history of hepatosplenomegaly, also has a history of elevated liver enzymes. She is known to Dr. Tineo in the past. 13. Consult Dr. Newman from infectious disease, mass to her anterior of mitral valve leaflet with possible endocarditis. 14. Dr. Arias is planning a cardiac catheterization on the patient today. She is nothing by mouth at this time. 15. More recommendations to follow based on patient's clinical course. Time with Patient: Greater than 30
[2020-08-05] MEDS: SODIUM CHLORIDE 0.9% 1,000 ML IV SCH (13:08)
--- NOTE | 2020-08-05 13:23 | CC ---
CARDIAC CATHETERIZATION REPORT Mrs. Adam is a 44-year-old female with no prior documented history of coronary artery disease who presented with cerebrovascular accident in the occipital area. She underwent a AKHIL that revealed a mass at the tip of the anterior mitral valve leaflets. The patient had a prior embolic phenomenon about a year ago involving her spleen and kidney and because of that and the possibility of the cardiac source from the mass, recommendation made regarding cardiac catheterization to evaluate her coronary anatomy prior to undergoing removal of the mass. The procedure as well as the risks and complications were discussed with the patient who is in full understanding and agreement. PROCEDURE DETAILS: Patient was brought to bottle label inspector in a fasting semi-sedated state after receiving fentanyl and Benadryl and achieving moderate conscious sedated state. Using Xylocaine anesthesia and Seldinger technique, a 6-Brazilian sheath was introduced in the right radial artery. Selective right and left coronary angiography performed using 5-Brazilian 3.5 bend right and left Ahmet catheter. Multiple views of the coronary artery including hemiaxial views were obtained. Following that, catheter and sheath were removed. Hemostasis was obtained with deployment of a TR band. There was no immediate complication. Patient was returned to her room in stable condition. Of note, patient received a total of 4000 units of intravenous heparin as well as intra-arterial verapamil. FINDINGS: LEFT MAIN: This is a large-sized vessel, trifurcating into left circumflex, left anterior descending artery and ramus intermedius. Left main coronary artery has no evidence of high-grade stenosis. LEFT ANTERIOR DESCENDING ARTERY: This is a large-sized vessel reaching to the apex. Tapers down in distal 3rd. The left anterior descending artery as well as branches have no evidence of obstructive coronary artery disease. LEFT CIRCUMFLEX: This is a large nondominant vessel giving rise to a large obtuse marginal branch. The left circumflex and its branches have no evidence of obstructive coronary artery disease. RAMUS INTERMEDIUS: This is a moderately sized vessel that has no evidence of high-grade stenosis. RIGHT CORONARY ARTERY: This is a dominant vessel, has a superior takeoff bifurcating distally PDA and posterolateral segment and branches. The right coronary artery as well as branches have no evidence of obstructive coronary artery disease. LEFT VENTRICULOGRAM: Left ventriculogram was not performed. CONCLUSION: Normal coronary anatomy. RECOMMENDATION: In view of findings and anatomy, I recommended to proceed with cardiovascular surgical evaluation for possible removal of the mass. Those findings and recommendations were discussed with the patient and her family who are in full understanding and agreement. Duration of the sedation is 14 minutes. MMODL / IJN: [id number] /
--- NOTE | 2020-08-05 13:45 | P.GSCN ---
History of Present Illness Consult date: 08/05/20 Reason for Consult: Pt presented with no pain, no chief complaint. Radiographically, xray was fairly unreadable. Will jim nurse and discuss for future xrays/CT for mandible. Intra-orally, patient has no perio issues, no current infection, no swelling. Negative to percussion testing, or pressure on buccal vestibule. Pt sees a dentist regularly and she is free of dental infections. Ok to proceed from the dental aspect Thank you for your kind referral. Past Medical History Past Medical History: Diabetes Mellitus, GERD/Reflux, Hyperlipidemia Additional Past Medical History / Comment(s): takes lisinopril due to diabetes, not high BP; alopecia, anticardiolipin antibody positive, thrombocytopenia, history of elevated liver enzymes, hepatosplenomegaly, splenic infarct and left renal infarct. History of Any Multi-Drug Resistant Organisms: None Reported Past Surgical History: Tubal Ligation Additional Past Surgical History / Comment(s): COLONOSCOPY x2, history of bone marrow biopsy in 2017 Past Anesthesia/Blood Transfusion Reactions: No Reported Reaction Past Psychological History: No Psychological Hx Reported Smoking Status: Current some day smoker Past Alcohol Use History: Occasional Past Drug Use History: Marijuana - Past Family History Mother Family Medical History: No Reported History Additional Family Medical History / Comment(s): Mother had a MN in her 50s. Father History Unknown: Yes Medications and Allergies Home Medications Medication Instructions Recorded Confirmed Type Empagliflozin [Jardiance] 10 mg PO DAILY 08/02/20 08/02/20 History Omeprazole 20 mg PO DAILY 08/02/20 08/02/20 History lisinopriL [Zestril] 5 mg PO DAILY 08/02/20 08/02/20 History Allergies Allergy/AdvReac Type Severity Reaction Status Date / Time No Known Allergies Allergy Verified 08/02/20 07:49 Surgical - Exam Vital Signs Temp Pulse Resp BP Pulse Ox 97.5 F L 87 20 121/80 99 08/02/20 07:46 08/02/20 07:46 08/02/20 07:46 08/02/20 07:46 08/02/20 07:46 Results - Labs 08/05/20 07:46 08/02/20 08:31 Abnormal Lab Results - Last 24 Hours (Table) 08/04/20 08/04/20 08/04/20 Range/Units 12:26 19:36 19:45 Lymphocytes # (1.0-4.8) k/uL APTT 43.8 H 110.7 H* (22.0-30.0) sec POC Glucose (mg/dL) 121 H (75-99) mg/dL C-Reactive Protein (<10.0) mg/L 08/05/20 08/05/20 08/05/20 Range/Units 06:07 07:46 07:46 Lymphocytes # 0.3 L (1.0-4.8) k/uL APTT 61.2 H (22.0-30.0) sec POC Glucose (mg/dL) 127 H (75-99) mg/dL C-Reactive Protein (<10.0) mg/L 08/05/20 Range/Units 08:46 Lymphocytes # (1.0-4.8) k/uL APTT (22.0-30.0) sec POC Glucose (mg/dL) (75-99) mg/dL C-Reactive Protein 11.7 H (<10.0) mg/L Microbiology - Last 24 Hours (Table) 08/04/20 09:24 Blood Culture - Preliminary Blood No Growth after 24 hours
[2020-08-05] MEDS ORDERED: HEPARIN SODIUM 1,000 UN/ML (10ML VL) IV PRN (13:47)
[2020-08-05 14:34] LABS: Protein C Antigen 106 % (72-160)
[2020-08-05 14:51] LABS: Basophils % (A) 0 %; Eosinophils # (A) 0.3 k/uL (0-0.7); Eosinophils % (A) 6 %; HGB 13.6 gm/dL (11.4-16.0); Lymphocytes # (A) 0.3 k/uL (1.0-4.8); Lymphocytes % (A) 5 %; MCHC 35.7 g/dL (31.0-37.0); MCV 84.2 fL (80.0-100.0); Mean Platelet Volume 7.1; Monocytes # (A) 0.2 k/uL (0-1.0); Monocytes % (A) 4 %; Neutrophils # (A) 4.6 k/uL (1.3-7.7); Neutrophils % (A) 84 %; Platelet Count 203 k/uL (150-450); RBC 4.51 m/uL (3.80-5.40); RDW 14.4 % (11.5-15.5); WBC 5.5 k/uL (3.8-10.6)
[2020-08-05 15:27] LABS: INR 1.1 (<1.2); Prothrombin Time 11.6 sec (9.0-12.0)
[2020-08-05 15:49] LABS: Partial Thromboplastin Time 133.5 sec (22.0-30.0)
[2020-08-05 15:59] LABS: Erythrocyte Sedimentation Rate 6 mm/hr (0-20)
--- NOTE | 2020-08-05 16:56 | CONS ---
CONSULTATION DATE OF DICTATION: 08/05/2020 REASON FOR CONSULTATION: History of hepatosplenomegaly and elevated LFTs in the past. HISTORY OF THE PRESENT ILLNESS: The patient is a 44-year-old pleasant white female admitted to the hospital with acute CVA. She presented with right-sided loss of vision with some tingling, numbness and weakness in the right arm and leg. She was subsequently admitted to the hospital and Neurology was consulted. She was diagnosed with left inferior occipital lobe infarct consistent with CVA. She subsequently had further workup done and was noted to have positive anticardiolipin antibodies. She has prior history of positive DARA in the past. Hematology/Oncology has been consulted in regard to this issue. Apparently the patient had prior history of fatty liver disease diagnosed several years ago and was noted to have elevated serum transaminases. During one of the CT scans in the past she was noted to have hepatosplenomegaly and prior history of kidney and the spleen infarct. We are consulted in regard to this issue. The patient denies any history of chronic liver disease. No history of jaundice or hepatitis. She has diabetes mellitus diagnosed 4 years ago. She has been overweight most of her life. At present she denies any abdominal pain. No nausea, no vomiting. No rectal bleeding or melena. PAST MEDICAL HISTORY: Significant for diabetes mellitus, hypertension, recent CVA, positive anticardiolipin antibody and positive DARA in the past. PAST SURGICAL HISTORY: Tubal ligation. MEDICATIONS: Medications at home include Jardiance, omeprazole and Zestril. ALLERGIES: NONE. SOCIAL HISTORY: Chronic smoker. Occasionally smokes marijuana. No alcohol use. FAMILY HISTORY: Mother had an AK in her 50s. REVIEW OF SYSTEMS: CARDIOPULMONARY: No chest pain or shortness of breath. GENITOURINARY: No dysuria or hematuria. MUSCULOSKELETAL: Unremarkable. SKIN: Unremarkable. ENDOCRINE: Diabetes mellitus. PSYCHIATRIC: Unremarkable. NEUROLOGY: As mentioned above, she had loss of vision in the right eye and some weakness in the right side of the body. CONSTITUTIONAL: No recent weight loss. No fever, chills, night sweats. HEMATOLOGY: As mentioned above, positive anticardiolipin antibody and positive DARA in the past. PHYSICAL EXAMINATION: She appears comfortable. No apparent distress. VITAL SIGNS: Stable. Blood pressure is 112/56, pulse rate 84, temperature 98. HEENT examination unremarkable. Conjunctivae pink. Sclerae anicteric. Oral cavity no lesions. NECK: No JVD or lymph node enlargement. CHEST: Clear to auscultation. HEART: Regular rate and rhythm. ABDOMEN: Soft. Bowel sounds are positive. No organomegaly. EXTREMITIES: No pedal edema. NEUROLOGIC: Alert and oriented x3. No focal deficits. LABS: At the time of admission to the hospital on August 02, AST, ALT, T-bilirubin and alkaline phosphatase are normal. DARA was positive. Albumin is 4.5. BUN and creatinine normal. WBC 6.1, hemoglobin 13.8, and platelets 213. IMPRESSION: 1. Recent cerebrovascular accident, for which workup is in progress. Cardiology and Neurology are following the patient closely. 2. Evidence of lesion on the anterior mitral valve leaflet on transesophageal echocardiogram noted yesterday, for which Cardiothoracic Surgery has been consulted. 3. Prior history of elevated liver function tests secondary to fatty liver. According to the patient, her last CT scan of the abdomen and pelvis done was December of last year that showed hepatosplenomegaly and apparently she also had a splenic and renal infarct. 4. History of diabetes mellitus. 5. History of being overweight. 6. History of hypertension. RECOMMENDATIONS: 1. In regard to her elevated serum transaminases, the patient was diagnosed in the past. Currently her serum transaminases are within normal limits, and hence I do not plan on proceeding with any workup during this hospitalization. Most likely she has had fatty liver disease based on a history of diabetes mellitus and issues with being overweight. 2. In regard to the splenic infarct and kidney infarct, we will defer this to Hematology/Oncology, as apparently patient does have history of anticardiolipin antibody that was diagnosed during her . But during this hospitalization antibodies were negative. The patient was advised to follow up in the office on an outpatient basis to continue monitoring of fatty liver, and at this time no further workup is needed. Thank you for this consultation. MMODL / IJN: [id number] /
[2020-08-05 16:58] LABS: Glucose,Whole Blood 101 mg/dL (75-99)
[2020-08-05] MEDS: HEPARIN SOD,PORK IN 0.45% NACL 25,000 UNIT in 0.45% NACL 1 250ML.BAG IV SCH ×2 (17:02→23:42)
[2020-08-05] MEDS: MUPIROCIN 2% OINT 22 GM TUBE NASAL SCH ×2 (17:03→20:34)
[2020-08-05 17:06] LABS: Appearance,Urine Clear (Clear); Bacteria,Urine Rare /hpf; Bilirubin,Urine Negative (Negative); Blood,Urine Negative (Negative); Color,Urine Light Yellow; Glucose,Urine (UA) 4+ (Negative); Ketones,Urine Negative (Negative); Leukocyte Esterase,Urine Moderate (Negative); Nitrite,Urine Negative (Negative); PH, Urine 6.5 (5.0-8.0); Protein,Urine Negative (Negative); RBC,Urine 2 /hpf (0-5); Specific Gravity,Urine 1.037 (1.001-1.035); Squamous Epithelial Cell,Urine 5 /hpf (0-4); Urobilinogen,Urine <2.0 mg/dL (<2.0); WBC,Urine 7 /hpf (0-5)
--- NOTE | 2020-08-05 19:41 | P.PN ---
Subjective Progress Note Date: 08/05/20 Principal diagnosis: Hx anticardiolopin ab positive during preg, presenting with TIA Discussed case with rheumatology. Objective - Vital Signs Vital signs: Vital Signs Temp 98.3 F 08/05/20 08:29 Pulse 84 08/05/20 16:55 Resp 16 08/05/20 16:55 BP 120/57 08/05/20 16:55 Pulse Ox 97 08/05/20 16:55 Intake & Output 08/05/20 08/05/20 08/06/20 06:59 18:59 06:59 Intake Total 292.458 340 Output Total 350 Balance 292.458 -10 Weight 83.2 kg Intake: IV 188 100 Heparin Sod,Pork in 0.45% 188 NaCl 25,000 unit In 0.45 % NaCl 1 250ml.bag @ 10. 83 UNITS/KG/HR 9.996 mls/ hr IV .Q24H [facility] Rx#: [id number] Intake, IV Titration 104.458 Amount Heparin Sod,Pork in 0.45% 104.458 NaCl 25,000 unit In 0.45 % NaCl 1 250ml.bag @ 10. 83 UNITS/KG/HR 9.996 mls/ hr IV .Q24H [facility] Rx#: [id number] Oral 240 Output: Urine 350 Other: Voiding Method Toilet Toilet # Voids 1 1 - Exam - Constitutional Constitutional Comment(s): Moonface appearance General appearance: Present: average body habitus, cooperative, no acute distress - EENT Eyes: Present: anicteric sclerae, EOMI ENT: Present: hearing grossly normal -HEART RRR - Respiratory Respiratory: bilateral: CTA - Peripheral edema leg Peripheral Edema: bilateral: None - Gastrointestinal General gastrointestinal: Present: normal bowel sounds, soft - Psychiatric Psychiatric: Present: A&O x's 3, appropriate affect, intact judgment & insight - Labs CBC & Chem 7: 08/05/20 14:11 08/02/20 08:31 Labs: Abnormal Lab Results - Last 24 Hours (Table) 08/04/20 08/04/20 08/05/20 Range/Units 19:36 19:45 06:07 Lymphocytes # (1.0-4.8) k/uL APTT 110.7 H* (22.0-30.0) sec POC Glucose (mg/dL) 121 H 127 H (75-99) mg/dL C-Reactive Protein (<10.0) mg/L Ur Specific [place] (1.001-1.035) Urine Glucose (UA) (Negative) Ur Leukocyte Esterase (Negative) Urine WBC (0-5) /hpf Ur Squamous Epith Cells (0-4) /hpf Urine Bacteria (None) /hpf 08/05/20 08/05/20 08/05/20 Range/Units 07:46 07:46 08:46 Lymphocytes # 0.3 L (1.0-4.8) k/uL APTT 61.2 H (22.0-30.0) sec POC Glucose (mg/dL) (75-99) mg/dL C-Reactive Protein 11.7 H (<10.0) mg/L Ur Specific [place] (1.001-1.035) Urine Glucose (UA) (Negative) Ur Leukocyte Esterase (Negative) Urine WBC (0-5) /hpf Ur Squamous Epith Cells (0-4) /hpf Urine Bacteria (None) /hpf 08/05/20 08/05/20 08/05/20 Range/Units 14:11 14:11 14:11 Lymphocytes # 0.3 L (1.0-4.8) k/uL APTT 133.5 H* (22.0-30.0) sec POC Glucose (mg/dL) (75-99) mg/dL C-Reactive Protein 1.5 H (<10.0) mg/L Ur Specific [place] (1.001-1.035) Urine Glucose (UA) (Negative) Ur Leukocyte Esterase (Negative) Urine WBC (0-5) /hpf Ur Squamous Epith Cells (0-4) /hpf Urine Bacteria (None) /hpf 08/05/20 08/05/20 Range/Units 16:51 16:54 Lymphocytes # (1.0-4.8) k/uL APTT (22.0-30.0) sec POC Glucose (mg/dL) 101 H (75-99) mg/dL C-Reactive Protein (<10.0) mg/L Ur Specific [place] 1.037 H (1.001-1.035) Urine Glucose (UA) 4+ H (Negative) Ur Leukocyte Esterase Moderate H (Negative) Urine WBC 7 H (0-5) /hpf Ur Squamous Epith Cells 5 H (0-4) /hpf Urine Bacteria Rare H (None) /hpf Microbiology - Last 24 Hours (Table) 08/04/20 09:24 Blood Culture - Preliminary Blood No Growth after 24 hours Assessment and Plan Plan: - Imaging and Cardiology MRI - head: report reviewed Assessment and Plan Positive Anticardiolipin Antibody - Positive during . - Pt took asa during her 3 pregnancies. - Anticardiolipin antibodies can be present during . - Testing was done here, showing patient is not positive for any antibodies. - Would recommend testing for anticardiolipin antibodies one more time to ensure they are not present before being able to say, with certainty, that patient does not have antibodies. Agree with Neurology plan for treatment of acute TIA. DARA positive Case was discussed with rheumatology today CVA (cerebral vascular accident)/TIA's - Rt jugular and medial subclavian thrombosis, all other extremities neg for DVT. - Heparin drip continued - Beta glycoprotein and anticardolipin antibodies negative - Lupus anticoagulant from this admission pending Pending lupus anticoagulant-if positive, in conjunction with stroke and now DVT, recommendation will be for lifelong anticoagulation with coumadin. If negative then other plans anticoagulation may be more appropriate. - She will follow up with Dr. Mendiola [place] for further plans. Rheumatology following while inpatient. Transition to coumadin, once remainder of studies are resulted. can use treatment dose lovenox for bridging if needed for discharge. Discussed with Vehicle Assembly Inspector. History of menorrhagia, aware of bleeding risks on anticoagulation and will monitor cbc as outpatient and monitor menses. - SHE IS NOT a candidate for control to regulate menses. Physician Attest: I have completed the full history and physical and developed the above impression and plan, agree with dictation above, dictated as a scribe.
[2020-08-05] MEDS: ACETAMINOPHEN TAB 325 MG TAB PO PRN (20:01)
[2020-08-05 20:22] LABS: Glucose,Whole Blood 138 mg/dL (75-99)
--- NOTE | 2020-08-05 22:43 | P.PN ---
Progress Note - Text Progress Note Date: 08/05/20 Chief Complaint: Right facial numbness History of presenting complaint: This is a pleasant 44-year-old patient of Dr. Bell. Chronic stable medical conditions include diabetes, hyperlipidemia, alopecia, anticardiolipin antibody positivity, thrombocytopenia. Patient presented to ER with right facial numbness present for about 3 days and some vision changes. He also felt some dizzy. Also felt the room is spinning around. Last her for about half an hour. The following 2 days she felt she was just not herself. Yesterday morning she noticed that the right side of face and tired of right upper extremity and the right side of her body was numb lasted for a couple of minutes also for a short time she could not see on the right side. Subsequently his symptoms are greatly improved with the meantime. Admitted with acute stroke in the left occipital lobe. Patient on Plavix Lipitor aspirin. found to have a DVT of the right jugular subclavian vein-IV heparin..AKHIL- massat the tip of the anterior mitral valve leaflet 1.1 cm. Today: Sitting up in bed. Cardiac catheterization-negative coronaries Review of systems: Was done for constitutional, cardiovascular, GI, pulmonary. relevant finding as above Active Medications Acetaminophen (Acetaminophen Tab 325 Mg Tab) 650 mg PO Q6HR PRN PRN Reason: Fever and/ or Pain Last Admin: 08/05/20 20:01 Dose: 650 mg Documented by: Alprazolam (Alprazolam 0.5 Mg Tab) 0.5 mg PO TID PRN PRN Reason: Anxiety Last Admin: 08/04/20 21:06 Dose: 0.5 mg Documented by: Alprazolam (Alprazolam 0.25 Mg Tab) 0.25 mg PO Q6HR PRN PRN Reason: Mild Anxiety Alprazolam (Alprazolam 0.5 Mg Tab) 0.5 mg PO Q6HR PRN PRN Reason: Moderate Anxiety Aspirin (Aspirin 81 Mg) 81 mg PO DAILY [facility] Last Admin: 08/05/20 08:27 Dose: Not Given Documented by: Atorvastatin Calcium (Atorvastatin 80 Mg Tab) 80 mg PO DAILY [facility] Last Admin: 08/05/20 08:28 Dose: Not Given Documented by: Heparin Sodium (Porcine) (Heparin Sodium 1,000 Un/Ml (10ml Vl)) 0 unit IV PER PROTOCOL PRN; Protocol PRN Reason: Low PTT Heparin Sodium (Porcine) (Heparin Sodium 1,000 Un/Ml (10ml Vl)) 0 unit IV PER PROTOCOL PRN; Protocol PRN Reason: Low PTT Heparin Sodium (Porcine) 10, (000 unit/ Sodium Chloride) 1,001 mls @ 999 mls/hr IRRIGATION ONCE PRN PRN Reason: INTRA-OP Stop: 08/06/20 23:00 Heparin Sodium (Porcine) 2,500 (unit/ Sodium Chloride) 250.5 mls @ 250 mls/hr IRRIGATION ONCE PRN PRN Reason: INTRA-OP Stop: 08/06/20 23:00 Heparin Sodium/Sodium Chloride (25,000 unit/ Sodium Chloride) 250 mls @ 9.984 mls/hr IV .Q24H [facility]; Protocol Last Admin: 08/05/20 17:02 Dose: Not Given Documented by: Insulin Aspart (Insulin Aspart (Novolog) 100 Unit/Ml Vial) 0 unit SQ ACHS [facility]; Protocol Last Admin: 08/05/20 20:33 Dose: 1 unit Documented by: Miscellaneous Information (Rx Info: Iv Contrast Was Given 1 Each Misc) 1 each MISCELLANE DAILY PRN PRN Reason: Per Protocol Stop: 08/07/20 12:40 Mupirocin (Mupirocin 2% Oint 22 Gm Tube) 1 applic NASAL BID [facility] Stop: 08/10/20 09:01 Last Admin: 08/05/20 20:34 Dose: 1 applic Documented by: Nitroglycerin (Nitroglycerin Sl Tabs 0.4 Mg Tab) 0.4 mg SUBLINGUAL Q5M PRN PRN Reason: Chest Pain Jardiance ( Empagliflozin) 10 Mg Tablet 10 mg PO DAILY [facility] Last Admin: 08/05/20 20:06 Dose: Not Given Documented by: Pantoprazole Sodium (Pantoprazole 40 Mg Tablet) 40 mg PO AC-BRKFST [facility] Last Admin: 08/05/20 08:24 Dose: 40 mg Documented by: Past medical history to include: Diabetes, hyperlipidemia, alopecia, anticardiolipin antibody positivity, throbbing 100 charlene Social history: with 2 children. Patient smoked for 25 years stopped in 2018. Alcohol occasionally. Occasional marijuana use. Physical examination: VITAL SIGNS: 98.3, 94, 16, 140/52, 98% room air GENERAL: sitting up, comfortable. EYES: Pupils equal. Conjunctiva normal. HEENT: External appearance of nose and ears normal, oral cavity grossly normal. NECK: JVD not raised; masses not palpable. HEART: First and second heart sounds are normal; no edema. LUNGS: Respiratory rate normal; clear to auscultation. ABDOMEN: Soft, nontender, liver spleen not palpable, no masses palpable. PSYCH: Alert and oriented x3; mood and affect normal. INVESTIGATIONS, reviewed in the clinical context: Cardiac catheterization: Normal coronaries AKHIL: 1.1 cm mass on the anterior mitral valve leaflet August 04: WBC 5.2 hemoglobin 13.2 WBC 6.1 hemoglobin 13.8 platelets 213 potassium 4.0 creatinine 0.49 Troponin I less than 0.012 TSH 1.9 Antinuclear antibody: screen positive. Negative: Double-stranded DNA, anticardiolipin IgG antibody 2.1, cardiolipin IgG negative anticardiolipin IgM 16.8 Coronavirus [PCR] not detected EKG tracing personally reviewed by me-normal sinus rhythm, prolonged QT Computed tomography scan of the brain without contrast: Infarct involving the left inferior occipital lobe, remote infarct. CT angiogram head and neck: No significant abnormality seen 2-D echocardiogram: EF 55-60%. Bubble study unable to be done. Brain MRI shows restricted diffusion involving the region of the inferior left occipital lobe. Ultrasound Doppler upper extremity: Venous thromboses right upper extremity to include the jugular and subclavian vein. Assessment and plan: -Acute ischemic stroke in the left occipital lobe symptoms of right upper quadrant todd-anopsia. Likely cardio-embolic Follow with neurology On aspirin, Lipitor, Plavix -Acute DVT in the right jugular and subclavian vein. On IV heparin -1.1 cm mass on anterior mitral valve leaflet Cardiothoracic surgery consulted Positive anticardiolipin antibodies with a diagnosis over 20 years ago. Diabetes mellitus type 2 Continue with jardiance. Follow Accu-Cheks -Hyperlipidemia Placed on Lipitor -Obesity BMI 33.8 Weight loss measures and follow-up with PCP -IV heparin monitoring -Cardiac catheterization showing normal coronaries -Nonalcoholic fatty liver disease Follow with GI in the office Follow with cardiothoracic surgery. Other medications to continue.
[2020-08-05 22:59] LABS: Hemoglobin A1C 6.1 % (4.0-6.0)
--- NOTE | 2020-08-05 23:10 | CONS ---
CONSULTATION DATE OF SERVICE: 08/05/2020 REASON FOR CONSULTATION: Abnormal AKHIL, anterior mitral leaflet mass, question of vegetation. HISTORY OF PRESENT ILLNESS: The patient is a 44-year-old female with a past medical history significant for diabetes mellitus, type 2, anticardiolipin antibody syndrome, in this patient with a previous history of splenic and renal infarct. The patient presented to the ER at [facility] on August 02, 2020, for evaluation of right-sided facial numbness x3 days. The patient did have intermittent episodes lasting 5 shortly. The patient also had right eye vision changes. The patient denies having any headache or URI symptoms. Denies having any chest pain or shortness of breath or cough. No nausea, no vomiting, no abdominal pain or diarrhea. The patient has been diagnosed with a CVA with left inferior occipital lobe infarct the patient has been followed by Neurology Services. The patient did have an echocardiogram completed which did show evidence of a mass attached to the tip of the anterior mitral valve leaflet measures 1.1 cm; rule out vegetation, for which Infectious Disease was consulted. This patient has been afebrile for the last 3 days the patient has been in the hospital. The patient did have a normal white count with no left shift. Blood cultures done on 08/04 are negative so far. REVIEW OF SYSTEMS: Positive points have been mentioned in the HPI. Rest of the systems are negative. PAST MEDICAL HISTORY: Diabetes mellitus, hyperlipidemia, anticardiolipin antibody positive, history of splenic and renal infarct. PAST SURGICAL HISTORY: Tubal ligation. Colonoscopy. SOCIAL HISTORY: Current everyday smoker. Rarely drinks. Does admit to marijuana use. FAMILY HISTORY: No pertinent findings were noticed. ALLERGIES: NO KNOWN DRUG ALLERGIES. MEDICATIONS: The patient is currently on Tylenol, Xanax, aspirin, Lipitor, heparin, NovoLog, Nitrostat, Jardiance, Protonix. PHYSICAL EXAMINATION: Blood pressure 120/57, pulse 84, temperature 98. She is 97% on room air. General description is a middle-aged female lying in bed in no distress. No tachypnea or accessory muscle of respiration use. HEENT: Examination shows no pallor or scleral icterus. Oral mucous membrane is dry. No pharyngeal erythema or thrush. NECK: Trachea is central. No thyromegaly. LUNGS: Unlabored breathing. Clear to auscultation anteriorly. No wheeze or crackle. HEART: S1, S2. Regular rate and rhythm. No loud murmur. ABDOMEN: Soft. No tenderness. No guarding or rigidity. No organomegaly. EXTREMITIES: No edema of the feet. SKIN EXAMINATION: No rash or mass palpable. Neurologically the patient is awake, alert, oriented x3. Mood and affect normal. LABS: Hemoglobin 13.6, white count 5.5. BUN of 13, creatinine 0.49. Electrolytes have been normal. Liver enzymes are normal. Urine is negative. Field PCR is negative. DIAGNOSTIC IMPRESSION AND PLAN: Patient admitted to the hospital with right-sided weakness and numbness in this patient diagnosed with acute cerebrovascular accident. The patient does have history of anticardiolipin antibody syndrome with a history of splenic and renal infarct with an abnormal echocardiogram showing a mass anteriorly left of the mitral valve with a question for possible vegetation. This patient is clinically not behaving as endocarditis. The patient has no fever, no elevated white count. Blood culture obtained yesterday has been negative so far. PLAN: 1. We will repeat blood cultures x2 today. 2. We will also check a CRP and sedimentation rate. 3. Will hold on any systemic antibiotic therapy, as clinical suspicion is low for endocarditis. 4. Will follow clinical condition and further adjust medication if needed. Thank you for this consultation. Will follow this patient along with you. MMODL / IJN: [id number] /
[2020-08-05 23:22] LABS: Hepatitis A Antibody IgM Non-Reactive (Non-Reactive); Hepatitis B Core IgM Non-Reactive (Non-Reactive); Hepatitis B Surface Antigen Non-Reactive (Non-Reactive); Hepatitis C IgG Antibody Non-Reactive (Non-Reactive)
[2020-08-06 05:55] LABS: Basophils % (A) 0 %; Eosinophils # (A) 0.3 k/uL (0-0.7); Eosinophils % (A) 7 %; HCT 38.3 % (34.0-46.0); Lymphocytes # (A) 0.3 k/uL (1.0-4.8); Lymphocytes % (A) 5 %; MCH 28.6 pg (25.0-35.0); MCHC 33.9 g/dL (31.0-37.0); MCV 84.5 fL (80.0-100.0); Mean Platelet Volume 6.9; Monocytes # (A) 0.2 k/uL (0-1.0); Monocytes % (A) 3 %; Neutrophils # (A) 4.3 k/uL (1.3-7.7); Neutrophils % (A) 84 %; Platelet Count 223 k/uL (150-450); RBC 4.54 m/uL (3.80-5.40); RDW 14.4 % (11.5-15.5); WBC 5.1 k/uL (3.8-10.6)
[2020-08-06 05:59] LABS: INR 1.1 (<1.2); Prothrombin Time 11.2 sec (9.0-12.0)
[2020-08-06] MEDS: INSULIN ASPART (NovoLOG) 100 UNIT/ML VIAL SQ SCH ×4 (06:08→20:07)
[2020-08-06 06:09] LABS: Glucose,Whole Blood 121 mg/dL (75-99)
[2020-08-06 06:13] LABS: African American GFR (CKD) >90 (>60 ml/min/1.73 sqM); Anion Gap 7 mmol/L; Blood Urea Nitrogen 15 mg/dL (7-17); Calcium 8.8 mg/dL (8.4-10.2); Carbon Dioxide 23 mmol/L (22-30); Chloride 106 mmol/L (98-107); Glucose 115 mg/dL (74-99); Non-African American GFR(CKD) >90 (>60 ml/min/1.73 sqM); Potassium 4.2 mmol/L (3.5-5.1); Sodium 136 mmol/L (137-145)
[2020-08-06] MEDS: PANTOPRAZOLE 40 MG TABLET PO SCH (06:37)
[2020-08-06] MEDS ORDERED: HEPARIN SODIUM,PORCINE 10,000 UNIT in SODIUM CHLORIDE 0.9% 1,000 ML IRRIGATION PRN (07:00)
[2020-08-06] MEDS ORDERED: HEPARIN SODIUM,PORCINE 2,500 UNIT in SODIUM CHLORIDE 0.9% 250 ML IRRIGATION PRN (07:00)
--- NOTE | 2020-08-06 07:23 | P.PN ---
Subjective Progress Note Date: 08/06/20 Principal diagnosis: Abnormal mitral valve on transesophageal echocardiogram, mass attached to the tip of the anterior mitral valve leaflet measuring 1.1 cm of unclear etiology, subacute ischemic stroke and acute DVT in the right jugular and subclavian vein. Past medical history significant for diabetes mellitus type 2, anticardiolipin antibody positive which was diagnosed during her pregnancies, alopecia, hepatosplenomegaly, previous splenic infarct and more recent renal infarction, considered thrombosis or embolism on CT scan of her abdomen in December 2019, obesity, history of elevated AST and ALT, chronic ongoing tobacco dependence, occasional marijuana use, occasional EtOH use, GERD, family history of early onset coronary artery disease with her mother having an [place] in her early 50s, and history of mild thrombocytopenia with platelet count of 120 to 139K/UL which is followed by Dr. Lobato from hematology in [facility]. The patient is currently laying in bed in no acute distress on the cardiac step- down unit. She denies any chest pain, shortness of breath, or any further numbness/tingling/dizziness. She states she has been ambulatory without difficulty. Remains in normal sinus rhythm, hemodynamically stable. Heparin gtt infusing. No other new symptoms or concerns. Objective - Vital Signs Vital signs: Vital Signs Temp 98.4 F 08/06/20 04:00 Pulse 80 08/06/20 04:00 Resp 16 08/06/20 04:00 BP 105/51 08/06/20 04:00 Pulse Ox 97 08/06/20 04:00 Intake & Output 08/05/20 08/06/20 08/06/20 18:59 06:59 18:59 Intake Total 340 73.521 Output Total 350 Balance -10 73.521 Weight 80 kg Intake: IV 100 Intake, IV Titration 73.521 Amount Heparin Sod,Pork in 0.45% 73.521 NaCl 25,000 unit In 0.45 % NaCl 1 250ml.bag @ 12 UNITS/KG/HR 9.984 mls/hr IV .Q24H [facility] Rx#: [id number] Oral 240 Output: Urine 350 Other: Voiding Method Toilet Toilet # Voids 1 1 - Exam CONSTITUTIONAL: Appears comfortable, cooperative, no acute distress RESPIRATORY: Lungs sounds clear bilaterally. Respirations even, nonlabored. Currently on room air with oxygen saturation 97%. CARDIOVASCULAR: S1, S2 present. Regular rate and rhythm, sinus rhythm on telemetry. Palpable peripheral pulses bilaterally. No edema present. No calf pain or tenderness noted. GASTROINTESTINAL: Abdomen soft, nontender, nondistended. Active bowel sounds present 4 quadrants. Tolerating diet. GENITOURINARY: Continues to void INTEGUMENTARY: Skin is warm and dry with evidence of good perfusion. NEUROLOGIC: Cranial nerves II through XII intact MUSKULOSKELETAL: Able to move all extremities, strength equal bilaterally, gait normal PSYCHIATRIC: Alert and oriented to person place and time, appropriate affect, intact judgment and insight - Allied health notes Allied health notes reviewed: nursing - Labs CBC & Chem 7: 08/06/20 04:53 08/06/20 04:53 Labs: Abnormal Lab Results - Last 24 Hours (Table) 08/05/20 08/05/20 08/05/20 Range/Units 07:46 07:46 08:46 Lymphocytes # 0.3 L (1.0-4.8) k/uL APTT 61.2 H (22.0-30.0) sec Sodium (137-145) mmol/L Creatinine (0.52-1.04) mg/dL Glucose (74-99) mg/dL POC Glucose (mg/dL) (75-99) mg/dL Hemoglobin A1c 6.1 H (4.0-6.0) % C-Reactive Protein (<10.0) mg/L Ur Specific Goldsmith (1.001-1.035) Urine Glucose (UA) (Negative) Ur Leukocyte Esterase (Negative) Urine WBC (0-5) /hpf Ur Squamous Epith Cells (0-4) /hpf Urine Bacteria (None) /hpf 08/05/20 08/05/20 08/05/20 Range/Units 08:46 14:11 14:11 Lymphocytes # 0.3 L (1.0-4.8) k/uL APTT (22.0-30.0) sec Sodium (137-145) mmol/L Creatinine (0.52-1.04) mg/dL Glucose (74-99) mg/dL POC Glucose (mg/dL) (75-99) mg/dL Hemoglobin A1c (4.0-6.0) % C-Reactive Protein 11.7 H 1.5 H (<10.0) mg/L Ur Specific Goldsmith (1.001-1.035) Urine Glucose (UA) (Negative) Ur Leukocyte Esterase (Negative) Urine WBC (0-5) /hpf Ur Squamous Epith Cells (0-4) /hpf Urine Bacteria (None) /hpf 08/05/20 08/05/20 08/05/20 Range/Units 14:11 16:51 16:54 Lymphocytes # (1.0-4.8) k/uL APTT 133.5 H* (22.0-30.0) sec Sodium (137-145) mmol/L Creatinine (0.52-1.04) mg/dL Glucose (74-99) mg/dL POC Glucose (mg/dL) 101 H (75-99) mg/dL Hemoglobin A1c (4.0-6.0) % C-Reactive Protein (<10.0) mg/L Ur Specific Goldsmith 1.037 H (1.001-1.035) Urine Glucose (UA) 4+ H (Negative) Ur Leukocyte Esterase Moderate H (Negative) Urine WBC 7 H (0-5) /hpf Ur Squamous Epith Cells 5 H (0-4) /hpf Urine Bacteria Rare H (None) /hpf 08/05/20 08/05/20 08/06/20 Range/Units 19:30 20:19 04:53 Lymphocytes # (1.0-4.8) k/uL APTT 38.3 H (22.0-30.0) sec Sodium 136 L (137-145) mmol/L Creatinine 0.46 L (0.52-1.04) mg/dL Glucose 115 H (74-99) mg/dL POC Glucose (mg/dL) 138 H (75-99) mg/dL Hemoglobin A1c (4.0-6.0) % C-Reactive Protein (<10.0) mg/L Ur Specific Goldsmith (1.001-1.035) Urine Glucose (UA) (Negative) Ur Leukocyte Esterase (Negative) Urine WBC (0-5) /hpf Ur Squamous Epith Cells (0-4) /hpf Urine Bacteria (None) /hpf 08/06/20 08/06/20 08/06/20 Range/Units 04:53 04:53 06:07 Lymphocytes # 0.3 L (1.0-4.8) k/uL APTT 48.0 H (22.0-30.0) sec Sodium (137-145) mmol/L Creatinine (0.52-1.04) mg/dL Glucose (74-99) mg/dL POC Glucose (mg/dL) 121 H (75-99) mg/dL Hemoglobin A1c (4.0-6.0) % C-Reactive Protein (<10.0) mg/L Ur Specific Goldsmith (1.001-1.035) Urine Glucose (UA) (Negative) Ur Leukocyte Esterase (Negative) Urine WBC (0-5) /hpf Ur Squamous Epith Cells (0-4) /hpf Urine Bacteria (None) /hpf Microbiology - Last 24 Hours (Table) 08/05/20 15:05 Nasal Screen MRSA/MSSA - Preliminary Nasal Swab 08/04/20 09:24 Blood Culture - Preliminary Blood No Growth after 24 hours Assessment and Plan Assessment: 1. Subacute ischemic stroke 2. A mass attached to the tip of the anterior mitral valve leaflet measuring 1.1 cm of unclear etiology, rule out vegetation 3. Diabetes mellitus type 2 4. Anticardiolipin antibody positive, diagnosed 20 years ago while 5. Acute DVT in the right jugular and subclavian vein 6. History of hepatosplenomegaly 7. History of splenic infarct 8. History of left renal infarct 9. History of elevated liver enzymes 10. History of thrombocytopenia followed by Dr. Mendiola from hematology on an outpatient basis 11. Obesity 12. Chronic ongoing tobacco dependence 13. Occasional marijuana use 14. Occasional EtOH use 15. Family history of early onset coronary artery disease with her mom having a myocardial infarction in her 50s 16. GERD Plan: 1. Continue to optimize medical management, low-dose aspirin, statin, heparin drip per protocol, will need oral anticoagulation per hematology. 2. Encourage use of her incentive spirometry 10 times every hour while awake. 3. Increase activity, ambulate as tolerated 4. Medical management and other comorbidities per primary care service. 5. Importance of risk modification discussed with the patient including smoking cessation. 6. Will obtain a CT scan of her abdomen/pelvis to re-eval abdominal viscera and r/o any abcess transformation of prior infarcted areas in the spleen and kidneys as well as for closer look at stigmata of portal hypertension vs. splenic vein thrombosis. Likely will complete tomorrow to prevent nephrotoxicity due to IV dye load yesterday with heart cath. 7. Consult Dr. Wilder from rheumatology as she reports she has a history of alopecia and anticardiolipin antibody positive, appreciate recommendations. 8. Dr. Tineo consulted, recommended outpatient work up for fatty liver 9. Dr. Newman consulted, recommends monitoring for now without antibiotics due to low suspicion for endocarditis. Blood culture results pending, patient remains afebrile with normal WBC. 10. More recommendations to follow based on patient's clinical course. Time with Patient: Greater than 30
[2020-08-06] MEDS: ATORVASTATIN 80 MG TAB PO SCH (09:49)
[2020-08-06] MEDS: MUPIROCIN 2% OINT 22 GM TUBE NASAL SCH ×2 (09:49→20:31)
[2020-08-06] MEDS: ASPIRIN 81 MG PO SCH (09:49)
--- NOTE | 2020-08-06 11:50 | PN ---
PROGRESS NOTE Mrs. Adam is 44-year-old female who presented with a neurological acute event consistent with CVA. She underwent a AKHIL that revealed a 1.1 cm mass on the tip of the anterior mitral valve leaflets of unclear etiology. The patient had prior embolic phenomena last year when she was found to have splenic infarct as well as renal infarct. She has no evidence to suggest subacute endocarditis and her blood cultures are negative so far. She underwent workup for endo cardiolipin antibodies that has been negative so far. Her serology has been negative. She underwent cardiac catheterization yesterday that revealed no evidence of obstructive coronary disease. She is doing well this morning. She denies any chest pain. No dizziness. No palpitation. No nausea. She continued on aspirin once a day, Lipitor 80 mg daily, in addition to IV heparin. PHYSICAL EXAMINATION: Blood pressure 119/50 with a heart rate in the 80s. LUNGS: Clear. HEART: Regular rate and rhythm. S1, S2. No S3. No rub. ABDOMEN: Soft and nontender. EXTREMITIES: No edema. Right radial pulse intact. IMPRESSION: 1. Mass on the anterior mitral valve leaflets of unclear etiology. No evidence of suggest endocarditis so far. No evidence to suggest Libman-Sacks endocarditis with the negative serologies. The possibility of unusual location for myxoma cannot be excluded causing her embolic phenomenon to the brain as well as her prior splenic and renal infarct. 2. History of diabetes. 3. Abnormal liver function tests noted in the past. RECOMMENDATION: From the cardiac standpoint, will await the input of the consultants. If her cultures remain negative and her serology is negative, she would require surgical intervention to remove the mass that most likely is the cause of her event. I have discussed those findings and the recommendation with the patient and her . She will continue on IV heparin in the meantime. MMODL / IJN: [id number] /
[2020-08-06 11:53] LABS: Glucose,Whole Blood 113 mg/dL (75-99)
--- NOTE | 2020-08-06 12:48 | P.PN ---
Subjective Progress Note Date: 08/06/20 Patient was seen at bedside and denies any new neurological complaints. She denies any further weakness, numbness, any worsening of her visual disturbance, difficulty getting her words out. The venous duplex upper extremity was positive or DVT and then closed jugular as well as the patient was started on heparin drip. 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 She smokes tobacco 3-4 cigarettes out of week. Socially drinks alcohol. Objective - Vital Signs Vital signs: Vital Signs Temp 98.3 F 08/06/20 08:00 Pulse 81 08/06/20 08:00 Resp 18 08/06/20 08:00 BP 119/58 08/06/20 08:00 Pulse Ox 98 08/06/20 08:00 Intake & Output 08/05/20 08/06/20 08/06/20 18:59 06:59 18:59 Intake Total 340 73.521 240 Output Total 350 Balance -10 73.521 240 Weight 80 kg Intake: IV 100 Intake, IV Titration 73.521 Amount Heparin Sod,Pork in 0.45% 73.521 NaCl 25,000 unit In 0.45 % NaCl 1 250ml.bag @ 12 UNITS/KG/HR 9.984 mls/hr IV .[facility]24[facility] Rx#: [id number] Oral 240 240 Output: Urine 350 Other: Voiding Method Toilet Toilet # Voids 1 1 - Exam GENERAL: The patient is lying in bed and is not in acute distress. NEUROLOGICAL: Higher mental function: The patient is awake, alert, oriented to self, place and time. Patient is following commands. No aphasia and no neglect. Cranial nerves: The pupils are round, equal and reactive to light and accom modation. Visual torres: right upper quadrant hemianopsia to confrontation. Extraocular movement is intact no nystagmus is noted. Facial sensation is normal to touch throughout. The facial strength is normal throughout. Hearing is normal bilaterally to hand rub. Tongue is midline and moved [id number] without any difficulty. No dysarthria is noted. Shoulder shrug is normal bilaterally. Motor: Gait is deferred. The strength is 5 over 5 throughout. Normal tone and bulk. Cerebellum: Normal finger to nose heel to larson bilaterally. Sensation: Sensation is normal to touch throughout. Reflexes (right/left): 2+ Plantars are downgoing bilaterally. - Labs CBC & Chem 7: 08/06/20 04:53 08/06/20 04:53 Labs: Abnormal Lab Results - Last 24 Hours (Table) 08/05/20 08/05/20 08/05/20 Range/Units 08:46 14:11 14:11 Lymphocytes # 0.3 L (1.0-4.8) k/uL APTT (22.0-30.0) sec Sodium (137-145) mmol/L Creatinine (0.52-1.04) mg/dL Glucose (74-99) mg/dL POC Glucose (mg/dL) (75-99) mg/dL Hemoglobin A1c 6.1 H (4.0-6.0) % C-Reactive Protein 1.5 H (<1.0) mg/dL Ur Specific [place] (1.001-1.035) Urine Glucose (UA) (Negative) Ur Leukocyte Esterase (Negative) Urine WBC (0-5) /hpf Ur Squamous Epith Cells (0-4) /hpf Urine Bacteria (None) /hpf 08/05/20 08/05/20 08/05/20 Range/Units 14:11 16:51 16:54 Lymphocytes # (1.0-4.8) k/uL APTT 133.5 H* (22.0-30.0) sec Sodium (137-145) mmol/L Creatinine (0.52-1.04) mg/dL Glucose (74-99) mg/dL POC Glucose (mg/dL) 101 H (75-99) mg/dL Hemoglobin A1c (4.0-6.0) % C-Reactive Protein (<1.0) mg/dL Ur Specific [place] 1.037 H (1.001-1.035) Urine Glucose (UA) 4+ H (Negative) Ur Leukocyte Esterase Moderate H (Negative) Urine WBC 7 H (0-5) /hpf Ur Squamous Epith Cells 5 H (0-4) /hpf Urine Bacteria Rare H (None) /hpf 08/05/20 08/05/20 08/06/20 Range/Units 19:30 20:19 04:53 Lymphocytes # (1.0-4.8) k/uL APTT 38.3 H (22.0-30.0) sec Sodium 136 L (137-145) mmol/L Creatinine 0.46 L (0.52-1.04) mg/dL Glucose 115 H (74-99) mg/dL POC Glucose (mg/dL) 138 H (75-99) mg/dL Hemoglobin A1c (4.0-6.0) % C-Reactive Protein (<1.0) mg/dL Ur Specific [place] (1.001-1.035) Urine Glucose (UA) (Negative) Ur Leukocyte Esterase (Negative) Urine WBC (0-5) /hpf Ur Squamous Epith Cells (0-4) /hpf Urine Bacteria (None) /hpf 08/06/20 08/06/20 08/06/20 Range/Units 04:53 04:53 06:07 Lymphocytes # 0.3 L (1.0-4.8) k/uL APTT 48.0 H (22.0-30.0) sec Sodium (137-145) mmol/L Creatinine (0.52-1.04) mg/dL Glucose (74-99) mg/dL POC Glucose (mg/dL) 121 H (75-99) mg/dL Hemoglobin A1c (4.0-6.0) % C-Reactive Protein (<1.0) mg/dL Ur Specific [place] (1.001-1.035) Urine Glucose (UA) (Negative) Ur Leukocyte Esterase (Negative) Urine WBC (0-5) /hpf Ur Squamous Epith Cells (0-4) /hpf Urine Bacteria (None) /hpf 08/06/20 Range/Units 11:51 Lymphocytes # (1.0-4.8) k/uL APTT (22.0-30.0) sec Sodium (137-145) mmol/L Creatinine (0.52-1.04) mg/dL Glucose (74-99) mg/dL POC Glucose (mg/dL) 113 H (75-99) mg/dL Hemoglobin A1c (4.0-6.0) % C-Reactive Protein (<1.0) mg/dL Ur Specific [place] (1.001-1.035) Urine Glucose (UA) (Negative) Ur Leukocyte Esterase (Negative) Urine WBC (0-5) /hpf Ur Squamous Epith Cells (0-4) /hpf Urine Bacteria (None) /hpf Microbiology - Last 24 Hours (Table) 08/05/20 15:05 Nasal Screen MRSA/MSSA - Preliminary Nasal Swab 08/04/20 09:24 Blood Culture - Preliminary Blood No Growth after 24 hours Assessment and Plan Assessment: Subacute ischemic stroke (left occipital lobe with extension towards the posterior thalamus) with symptoms of right upper quadrant hemianposia). 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 Positive anti-cardiolipin antibodies (diagnosed 20 years-ago while and per hematology team that is considered normal) Diabetes mellitus History of splenic infarct but did not follow-up regarding further work-up History of left renal infarct but did not follow-up regarding further work-up Social Tobacco use Plan: * On aspirin 81mg daily. Plavix was discontinued not by neurology and was started on heparin drip because of DVT. I agree to transition to oral anticoagulant. Continue Lipitor 80 mg daily for secondary stroke prophylaxis. * MRI the brain is reported as subacute infarct over the left occipital lobe with extension towards the posterior thalamus. There is also minimal additional scattered hyperintensity present within the deep white matter which seems chronic upon reviewing it. * 2-D echo was reported as overall left ventricle systolic function is normal with ejection fraction between 55-60%. Bubble study was done but it was limited because unable to rule out due to poor image quality. Left atrial size is normal. Normal left atrial size by volume. * Transesophageal echocardiograms on 08/04/2020: Is reported as normal left ventricular size and systolic function. Normal appearance of left atrial appendage. No evidence of shunting. Mass attached the tip of the anterior mitral valve leaflet measuring 1.1 cm of unclear etiology, rule out vege tation, with mitral regurgitation. Trace tricuspid regurgitation. * Cardiology team is on board . I spoke with Dr. Fatou Arias and patient to have cardiothoracic remove the mass. * Blood culture are no growth after 24 hour. * Nasal screen MRSA/MSSA: Pending. * Venous thrombus right upper extremity ultrasound (include jugular and subclavian). No DVT of lower extremities. * Lipid panel: Triglyceride 189, cholesterol is 150, LDL 73, HDL 39. LDL goal in stroke is <70. * TSH: 1.93 (normal). * Continue every 4 hours neuro checks. * Continue continuous cardiac monitoring. * Per hematology team they stated that the the anti-cardiolipin antibodies can be present during . The recommended repeat the anticardiolipin antibody testing. And they also no information from the patient that she was taking aspirin during her 3 pregnancies. * Hypercoagulable work-up: Homocysteine level is 6.21 which is normal. DARA screen is positive but the double-stranded DNA is negative. Anti-cardiolipin IgG/IGA/IgM antibody are normal and reported as negative. * Antithrombin II antigen 100% (normal), Protein S antigen 89% (normal). antistreptolysin O antibody (ASO) 25 (normal). Beta 2 glycopreint1 are negative. antithrombin III antibody (normal). antithrombin III activity 109 (normal 79-109). protein C and protein S antigen antibody (both are normal). von Willebrand factor 170 (normal). * Pending factor V Leiden, MTHFR genotype, Factor 7 and 8 antibody (send out test). * I ordered an event monitor. * Physical therapy, occupational therapy and [employer] are consulted. The plan is discussed with the patient. Will continue to follow sporadically. Roberto Ludwig MD Neuro-Hospitalist Time with Patient: Less than 30
[2020-08-06 16:57] LABS: Glucose,Whole Blood 154 mg/dL (75-99)
--- NOTE | 2020-08-06 17:57 | PN ---
PROGRESS NOTE DATE OF SERVICE: 08/06/2020. REASON FOR FOLLOW UP: An abnormal AKHIL with question of vegetation on the mitral valve. INTERVAL HISTORY: The patient is afebrile. The patient is breathing comfortably. Denies any chest pain, shortness of breath or cough. No abdominal pain or diarrhea. PHYSICAL EXAMINATION: Blood pressure 120/81, pulse of 97, temperature 98.3. She is 97% on room air. General description: The patient is a middle-aged female up in the chair in no distress. Respiratory system: Unlabored breathing, clear to auscultation anteriorly. Heart S1, S2. Regular rate and rhythm. ABDOMEN: Soft, no tenderness. LABS: Hemoglobin 13, white count 5.1. Sedimentation rate is 6. CRP 1.5. DIAGNOSTIC IMPRESSION AND PLAN: Patient with symptoms of a transient ischemic attack/cerebrovascular accident and with numbness in this patient who did have history of anticardiolipin antibody syndrome. The patient did have a AKHIL with some mass on the mitral valve currently not behaving as endocarditis in this patient with no fever or elevated white count. Blood cultures have been negative. We will monitor the patient closely off antibiotic therapy. Continue supportive care. MMODL / IJN: [id number] /
[2020-08-06 20:02] LABS: Glucose,Whole Blood 120 mg/dL (75-99)
--- NOTE | 2020-08-06 22:01 | P.PN ---
Progress Note - Text Progress Note Date: 08/06/20 Chief Complaint: Right facial numbness History of presenting complaint: This is a pleasant 44-year-old patient of Dr. Bell. Chronic stable medical conditions include diabetes, hyperlipidemia, alopecia, anticardiolipin antibody positivity, thrombocytopenia. Patient presented to ER with right facial numbness present for about 3 days and some vision changes. He also felt some dizzy. Also felt the room is spinning around. Last her for about half an hour. The following 2 days she felt she was just not herself. Yesterday morning she noticed that the right side of face and tired of right upper extremity and the right side of her body was numb lasted for a couple of minutes also for a short time she could not see on the right side. Subsequently his symptoms are greatly improved with the meantime. Admitted with acute stroke in the left occipital lobe. Patient on Plavix Lipitor aspirin. found to have a DVT of the right jugular subclavian vein-IV heparin..AKHIL- massat the tip of the anterior mitral valve leaflet 1.1 cm. patient has no clinical infective symptoms. No fever no white count. IV heparin. Today: Sitting up in a chair. Comfortable. On IV heparin. No neuro symptoms. Review of systems: Was done for constitutional, cardiovascular, GI, pulmonary. relevant finding as above Active Medications Acetaminophen (Acetaminophen Tab 325 Mg Tab) 650 mg PO Q6HR PRN PRN Reason: Fever and/ or Pain Last Admin: 08/05/20 20:01 Dose: 650 mg Documented by: Alprazolam (Alprazolam 0.5 Mg Tab) 0.5 mg PO TID PRN PRN Reason: Anxiety Last Admin: 08/04/20 21:06 Dose: 0.5 mg Documented by: Alprazolam (Alprazolam 0.25 Mg Tab) 0.25 mg PO Q6HR PRN PRN Reason: Mild Anxiety Alprazolam (Alprazolam 0.5 Mg Tab) 0.5 mg PO Q6HR PRN PRN Reason: Moderate Anxiety Aspirin (Aspirin 81 Mg) 81 mg PO DAILY [facility] Last Admin: 08/06/20 09:49 Dose: 81 mg Documented by: Atorvastatin Calcium (Atorvastatin 80 Mg Tab) 80 mg PO DAILY [facility] Last Admin: 08/06/20 09:49 Dose: 80 mg Documented by: Heparin Sodium (Porcine) (Heparin Sodium 1,000 Un/Ml (10ml Vl)) 0 unit IV PER PROTOCOL PRN; Protocol PRN Reason: Low PTT Heparin Sodium (Porcine) (Heparin Sodium 1,000 Un/Ml (10ml Vl)) 0 unit IV PER PROTOCOL PRN; Protocol PRN Reason: Low PTT Heparin Sodium (Porcine) 10, (000 unit/ Sodium Chloride) 1,001 mls @ 999 mls/hr IRRIGATION ONCE PRN PRN Reason: INTRA-OP Stop: 08/06/20 23:00 Heparin Sodium (Porcine) 2,500 (unit/ Sodium Chloride) 250.5 mls @ 250 mls/hr IRRIGATION ONCE PRN PRN Reason: INTRA-OP Stop: 08/06/20 23:00 Heparin Sodium/Sodium Chloride (25,000 unit/ Sodium Chloride) 250 mls @ 9.984 mls/hr IV .Q24H [facility]; Protocol Last Titration: 08/06/20 06:55 Dose: 12 units/kg/hr, 9.98 mls/hr Documented by: Insulin Aspart (Insulin Aspart (Novolog) 100 Unit/Ml Vial) 0 unit SQ ACHS [facility]; Protocol Last Admin: 08/06/20 20:07 Dose: Not Given Documented by: Miscellaneous Information (Rx Info: Iv Contrast Was Given 1 Each Misc) 1 each MISCELLANE DAILY PRN PRN Reason: Per Protocol Stop: 08/07/20 12:40 Mupirocin (Mupirocin 2% Oint 22 Gm Tube) 1 applic NASAL BID [facility] Stop: 08/10/20 09:01 Last Admin: 08/06/20 20:31 Dose: 1 applic Documented by: Nitroglycerin (Nitroglycerin Sl Tabs 0.4 Mg Tab) 0.4 mg SUBLINGUAL Q5M PRN PRN Reason: Chest Pain Jardiance ( Empagliflozin) 10 Mg Tablet 10 mg PO DAILY [facility] Last Admin: 08/06/20 09:49 Dose: 10 mg Documented by: Pantoprazole Sodium (Pantoprazole 40 Mg Tablet) 40 mg PO AC-BRKFST [facility] Last Admin: 08/06/20 06:37 Dose: 40 mg Documented by: Past medical history to include: Diabetes, hyperlipidemia, alopecia, anticardiolipin antibody positivity, throbb ing 100 charlene Social history: with 2 children. Patient smoked for 25 years stopped in 2018. Alcohol occasionally. Occasional marijuana use. Physical examination: VITAL SIGNS: 98.3, 81, 18, 119/58, 98% on room air GENERAL: sitting up in chair, comfortable. EYES: Pupils equal. Conjunctiva normal. HEENT: External appearance of nose and ears normal, oral cavity grossly normal. NECK: JVD not raised; masses not palpable. HEART: First and second heart sounds are normal; no edema. LUNGS: Respiratory rate normal; clear to auscultation. ABDOMEN: Soft, nontender, liver spleen not palpable, no masses palpable. PSYCH: Alert and oriented x3; mood and affect normal. INVESTIGATIONS, reviewed in the clinical context: August 06: WBC 5.1 hemoglobin 13 potassium 4.2 creatinine 0.46 Cardiac catheterization: Normal coronaries AKHIL: 1.1 cm mass on the anterior mitral valve leaflet August 04: WBC 5.2 hemoglobin 13.2 WBC 6.1 hemoglobin 13.8 platelets 213 potassium 4.0 creatinine 0.49 Troponin I less than 0.012 TSH 1.9 Antinuclear antibody: screen positive. Negative: Double-stranded DNA, anticardiolipin IgG antibody 2.1, cardiolipin IgG negative anticardiolipin IgM 16.8 Coronavirus [PCR] not detected EKG tracing personally reviewed by me-normal sinus rhythm, prolonged QT Computed tomography scan of the brain without contrast: Infarct involving the left inferior occipital lobe, remote infarct. CT angiogram head and neck: No significant abnormality seen 2-D echocardiogram: EF 55-60%. Bubble study unable to be done. Brain MRI shows restricted diffusion involving the region of the inferior left occipital lobe. Ultrasound Doppler upper extremity: Venous thromboses right upper extremity to include the jugular and subclavian vein. Assessment and plan: -Acute cardioembolic stroke in the left occipital lobe symptoms of right upper quadrant todd-anopsia. Follow with neurology On aspirin, Lipitor, Plavix -Acute DVT in the right jugular and subclavian vein. On IV heparin -1.1 cm mass on anterior mitral valve leaflet. Patient has no infective symptoms. Blood cultures are negative. 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 Diabetes mellitus type 2 Continue with jardiance. Follow Accu-Cheks -Hyperlipidemia Lipitor -Obesity BMI 33.8 Weight loss measures and follow-up with PCP -IV heparin monitoring -Cardiac catheterization showing normal coronaries -Nonalcoholic fatty liver disease Follow with GI in the office Care was discussed with the patient.
[2020-08-06] MEDS: ACETAMINOPHEN TAB 325 MG TAB PO PRN (23:27)
[2020-08-07 06:15] LABS: Glucose,Whole Blood 119 mg/dL (75-99)
[2020-08-07] MEDS: INSULIN ASPART (NovoLOG) 100 UNIT/ML VIAL SQ SCH ×4 (07:00→20:14)
[2020-08-07] MEDS: PANTOPRAZOLE 40 MG TABLET PO SCH (07:02)
[2020-08-07] MEDS: MUPIROCIN 2% OINT 22 GM TUBE NASAL SCH ×2 (09:04→20:19)
[2020-08-07] MEDS: ATORVASTATIN 80 MG TAB PO SCH (09:04)
[2020-08-07] MEDS: ASPIRIN 81 MG PO SCH (09:04)
--- NOTE | 2020-08-07 09:24 | P.PN ---
Subjective Progress Note Date: 08/07/20 Principal diagnosis: Abnormal mitral valve on transesophageal echocardiogram. 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 Past medical history significant for diabetes mellitus type 2, anticardiolipin antibody positive which was diagnosed during her pregnancies, alopecia, hepatosplenomegaly, previous splenic infarct and more recent renal infarction, considered thrombosis or embolism on CT scan of her abdomen in December 2019, obesity, history of elevated AST and ALT, chronic ongoing tobacco dependence, occasional marijuana use, occasional EtOH use, GERD, family history of early onset coronary artery disease with her mother having an ID in her early 50s, and history of mild thrombocytopenia with platelet count of 120 to 139K/UL which is followed by Dr. Lobato from hematology in [facility]. The patient is seen in follow-up today 08/07/2020 at her bedside on the cardiac stepdown unit. She is currently sitting up to bedside edge, is awake, alert and oriented 3. Denies any complaints of pain, shortness of breath, dizziness, nausea or numbness or tingling to her face or extremities. Her is present at her bedside. Her questions were answered to the best of my ability. She remained hemodynamically stable and is currently on no inotropic or pressor support. Heparin drip remains infusing per protocol. Oxygen saturations are 99% on room air and she is achieving 2500 mL on her incentive spirometry. A bedside FEV1 was completed on 08/06/2020 which showed a predicted value of 75%. Her blood culture results showed no growth after 24 and 48 hours. MRSA/MSSA nasal screen was negative. She remains afebrile. Laboratory results from yesterday show a WBC count of 5.1, hemoglobin 13.0, hematocrit 38.3, platelets 223, INR 1.1, PT 11.2, PTT 48.0, sodium 136, BUN 15, creatinine 0.46, and glucose 115. The patient remains on a Protonix, statin and low-dose aspirin. Objective - Vital Signs Vital signs: Vital Signs Temp 98.1 F 08/07/20 03:31 Pulse 81 08/07/20 03:31 Resp 16 08/07/20 03:31 BP 101/66 08/07/20 03:31 Pulse Ox 99 08/07/20 03:31 Intake & Output 08/06/20 08/07/20 08/07/20 18:59 06:59 18:59 Intake Total 720 Balance 720 Weight 79.3 kg Intake: Oral 720 Other: Voiding Method Toilet # Voids 3 1 - Constitutional General appearance: Present: cooperative, no acute distress, obese - EENT Eyes: Present: PERRLA, normal appearance. Absent: scleral icterus ENT: Present: hearing grossly normal - Neck Details: Neck is supple, no JVD, no lymphadenopathy. - Respiratory Details: Lung sounds essentially clear throughout. No wheezes, rhonchi or crackles. Respirations are symmetrical and nonlabored. Oxygen saturation is 99% on room air and achieving 2500 mL on her incentive spirometry. - Cardiovascular Details: Regular rhythm and rate. S1 and S2 present, negative for S3, gallop or murmur. No edema present. Remote telemetry showing normal sinus rhythm heart rate 86 BPM. - Gastrointestinal Gastrointestinal Comment(s): Abdomen is soft, nontender and nondistended. Active bowel sounds present all 4 abdominal quadrants. No guarding or rigidity. No organomegaly appreciated. - Genitourinary Genitourinary Comment(s): Continues to void. - Integumentary Integumentary Comment(s): Skin is warm and dry. No clubbing or cyanosis is present. No rash or abnormal pigmentation is present. - Musculoskeletal Musculoskeletal: Present: gait normal, strength equal bilaterally - Psychiatric Psychiatric: Present: A&O x's 3, appropriate affect, intact judgment & insight - Allied health notes Allied health notes reviewed: nursing - Labs CBC & Chem 7: 08/06/20 04:53 08/06/20 04:53 Labs: Abnormal Lab Results - Last 24 Hours (Table) 08/06/20 08/06/20 08/06/20 Range/Units 11:51 16:55 20:00 POC Glucose (mg/dL) 113 H 154 H 120 H (75-99) mg/dL 08/07/20 Range/Units 06:09 POC Glucose (mg/dL) 119 H (75-99) mg/dL Microbiology - Last 24 Hours (Table) 08/05/20 15:05 Nasal Screen MRSA/MSSA - Final Nasal Swab 08/05/20 14:11 Blood Culture - Preliminary Blood No Growth after 24 hours 08/05/20 14:11 Blood Culture - Preliminary Blood No Growth after 24 hours 08/04/20 09:24 Blood Culture - Preliminary Blood No Growth after 48 hours Assessment and Plan Assessment: 1. Subacute ischemic stroke 2. A mass attached to the tip of the anterior mitral valve leaflet measuring 1.1 cm of unclear etiology, rule out vegetation 3. Diabetes mellitus type 2 4. Anticardiolipin antibody positive, diagnosed 20 years ago while 5. Acute DVT in the right jugular and subclavian vein 6. History of hepatosplenomegaly 7. History of splenic infarct 8. History of left renal infarct 9. History of elevated liver enzymes 10. History of thrombocytopenia followed by Dr. Mendiola from hematology on an outp atient basis 11. Obesity 12. Chronic ongoing tobacco dependence 13. Occasional marijuana use 14. Occasional EtOH use 15. Family history of early onset coronary artery disease with her mom having a myocardial infarction in her 50s 16. GERD Plan: 1. Continue to optimize medical management, low-dose aspirin, statin, heparin drip per protocol. 2. Preoperative teaching reinforced with patient and her present at her bedside. 3. She has been cleared by dental for surgery. 4. Blood culture results are negative for any growth after 24 and 48 hours. 5. Encourage use of her incentive spirometry 10 times every hour while awake. Bedside FEV1 was completed on 08/06/2020 which showed a predicted value of 75%. 6. Medical management and other comorbidities per primary care service. 7. Importance of risk modification discussed with the patient including smoking cessation. 8. A computed tomography scan of her abdomen/pelvis to reevaluate her abdominal viscera and rule out any abscess transformation of prior infarcted areas in the spleen and kidneys as well as take a closer look at stigmata of portal hypertension versus splenic vein thrombosis ordered for today. 10. Dr. Tineo's consult from gastroenterology noted and appreciated. 11. Consult to Dr. Wilder from rheumatology pending. 12. Dr. Newman from infectious disease consult noted and appreciated. 13. Continue to optimize medical management with low-dose aspirin, statin, heparin drip per protocol. 14. More recommendations to follow based on patient's clinical course. Time with Patient: Greater than 30
--- NOTE | 2020-08-07 10:45 | CT ---
EXAMINATION TYPE: CT abdomen pelvis wo/w con DATE OF EXAM: 08/07/2020 HISTORY: History of splenic infarct and left kidney infarct CT DLP: 2266.9mGycm Automated Exposure Control for Dose Reduction was Utilized. CONTRAST: CT scan of the abdomen and pelvis is performed without oral and without and with IV Contrast, patient injected with 100 mL of Isovue 300. COMPARISON: None. FINDINGS: LUNG BASES: Some respiratory motion artifact degradation. Mild left basilar linear scarring and/or at electasis. LIVER/GB: Liver is heterogeneously isodense to slightly hypodense relative to spleen on noncontrast i mages consistent with mild diffuse fatty infiltration. PANCREAS: No significant abnormality is seen. SPLEEN: Mild splenomegaly measuring 13.5 cm long axis coronal image 54. Spleen shows homogeneous post contrast enhancement. ADRENALS: No significant abnormality is seen. KIDNEYS: Noncontrast images show no renal calculi bilaterally. Postcontrast images show symmetric cor tical medullary uptake and excretion without hydronephrosis seen bilaterally. There are 2 subcentimet er low dense lesions right kidney image 35 and 36 series 501 too small to further characterize presum ed benign. There is 1.5 cm simple appearing thin-walled cyst posteriorly upper pole level left kidney image 28 series 501. Near this level there is cortical loss and diminished enhancement consistent wi th small focal scarring lateral aspect left upper kidney seen best on coronal image 70 series 402. So me additional focal volume loss suspected lower pole of the left kidney coronal image 60. Renal sizes are overall symmetric and within normal limits. BOWEL: Suboptimal evaluation without enteric contrast. Normal appearing appendix is seen from cecum. No suspicious small or large bowel dilatation. Few diverticula in the left and sigmoid colon without CT evidence for acute diverticulitis. UTERUS/ADNEXA: Slightly prominent in size and lobulated contour uterus, anteverted in shape with endo metrial stripe deviating to right of midline suggesting left sided intramural fibroid. Some scattered bilateral pelvic phleboliths are present. Both ovaries normal in size axial series 4 1 image 69. Rig ht ovary is 3.9 x 3.2 cm simple appearing thin-walled cyst or cystic lesion image 71 series 401, this can be better evaluated and characterized with pelvic ultrasound if desired. Mild wall thickening in the transverse and left colon without surrounding inflammatory change. Findings favor product of poo r distention a mild uncomplicated acute colitis cannot be excluded. LYMPH NODES: There are prominent but subcentimeter lymph nodes throughout the retroperitoneum, larges t lymph nodes near renal vessels are still subcentimeter in size. No definitive greater than 1 cm abd ominal or pelvic lymph nodes. OSSEOUS STRUCTURES: Slight grade 1 anterolisthesis L5 on S1. Mild to moderate disc space narrowing at this level. Remainder vertebral body heights and disc space heights are maintained. OTHER: Mild fat stranding anterior left abdominal wall midabdomen coronal image 18 is nonspecific, wilson spect product of prior laparoscopic surgery. There is a patent celiac artery and SMA. There are patent bilateral single renal arteries and ELIZA. No significant plaque or stenosis in aorta or branch vessels. There is a tortuous vessel in the mid and left upper to mid abdomen. This appears to connect with the portal venous system and is likely a pro duct of small caliber draining splenic vein with draining collateral veins. No obvious filling defect s are present. There is tortuous course to the small caliber splenic arteries also identified. IMPRESSION: 1. Small focal area of chronic hypoperfusion or infarcts upper pole and lower pole left kidney suspec vazquez. Overall renal volumes are symmetric and within normal limits. 2. Mild splenomegaly with homogeneous enhancement, no focal areas of diminished perfusion or infarct. 3. Patent abdominal aorta and branch vessels without significant plaque or stenosis. 4. Other nonacute findings as detailed above.
[2020-08-07 11:47] LABS: Glucose,Whole Blood 106 mg/dL (75-99)
[2020-08-07] MEDS: HEPARIN SOD,PORK IN 0.45% NACL 25,000 UNIT in 0.45% NACL 1 250ML.BAG IV SCH (12:25)
[2020-08-07 12:28] LABS: Basophils % (A) 0 %; Eosinophils # (A) 0.3 k/uL (0-0.7); Eosinophils % (A) 7 %; HCT 42.7 % (34.0-46.0); Lymphocytes # (A) 0.2 k/uL (1.0-4.8); Lymphocytes % (A) 5 %; MCH 28.6 pg (25.0-35.0); MCHC 32.8 g/dL (31.0-37.0); Mean Platelet Volume 7.9; Monocytes # (A) 0.2 k/uL (0-1.0); Monocytes % (A) 3 %; Neutrophils # (A) 4.1 k/uL (1.3-7.7); Neutrophils % (A) 85 %; Platelet Count 253 k/uL (150-450); RBC 4.91 m/uL (3.80-5.40); WBC 4.8 k/uL (3.8-10.6)
[2020-08-07 12:29] LABS: ALT 66 U/L (4-34); AST 82 U/L (14-36); African American GFR (CKD) >90 (>60 ml/min/1.73 sqM); Albumin 4.4 g/dL (3.5-5.0); Alkaline Phosphatase 77 U/L (38-126); Anion Gap 10 mmol/L; Blood Urea Nitrogen 12 mg/dL (7-17); C Reactive Protein 1.2 mg/dL (<1.0); Calcium 9.3 mg/dL (8.4-10.2); Carbon Dioxide 24 mmol/L (22-30); Chloride 102 mmol/L (98-107); Glucose 196 mg/dL (74-99); Non-African American GFR(CKD) >90 (>60 ml/min/1.73 sqM); Potassium 4.1 mmol/L (3.5-5.1); Sodium 136 mmol/L (137-145); Total Bilirubin 0.7 mg/dL (0.2-1.3); Total Protein 6.9 g/dL (6.3-8.2)
--- NOTE | 2020-08-07 12:34 | PN ---
PROGRESS NOTE Mrs. Adam is a 44-year-old female who presented with a neurological event with numbness. She subsequently underwent a AKHIL that revealed evidence of a mass on the tip of the anterior mitral valve leaflets. She had a history of splenic and renal infarct in March of 2020. She is feeling well this morning. Her breathing is stable. She denies any chest pain. She denies any dizziness or palpitation. She denies any nausea. She continues to be in sinus mechanism. She continues to be at this time on the IV heparin, Lipitor 40 mg daily. PHYSICAL EXAMINATION: Blood pressure 126/80 with a heart rate in 90s. LUNGS: Clear. HEART: Regular rhythm S1, S2. No S3. No rub. ABDOMEN: Soft nontender. EXTREMITIES: No edema. IMPRESSION: 1. Multiple embolic phenomenon with most recently neurological event with a mass on the anterior mitral valve leaflets that could represent a myxoma. Other working diagnosis could be related to non bacterial endocarditis although her serology workup has been negative so far. Her blood pressure has been negative. 2. History of diabetes mellitus. Treated. 3. Abnormal liver function tests in the past, stable. RECOMMENDATIONS: From the cardiac standpoint, will continue the IV heparin. Patient had evidence of venous thrombosis. Will await the input of the rheumatology service with Dr. Wilder and depending on that, the decision will be made regarding surgical intervention to remove the mass. I have discussed those findings with the patient. MMODL / IJN: [id number] /
--- NOTE | 2020-08-07 13:14 | P.PN ---
Subjective Progress Note Date: 08/07/20 She was seen at bedside and that she stated that she's doing about the same today compared to yesterday. Denies any worsening of her condition. Otherwise denies headache, nausea, vomiting. Denies any new neurological complaint. Objective - Vital Signs Vital signs: Vital Signs Temp 98.7 F 08/07/20 08:00 Pulse 99 08/07/20 08:00 Resp 18 08/07/20 08:00 BP 126/81 08/07/20 08:00 Pulse Ox 95 08/07/20 08:00 Intake & Output 08/06/20 08/07/20 08/07/20 18:59 06:59 18:59 Intake Total 720 416.479 Balance 720 416.479 Weight 79.3 kg Intake: Intake, IV Titration 176.479 Amount Heparin Sod,Pork in 0.45% 176.479 NaCl 25,000 unit In 0.45 % NaCl 1 250ml.bag @ 12 UNITS/KG/HR 9.984 mls/hr IV .Q24H [facility] Rx#: [id number] Oral 720 240 Other: Voiding Method Toilet # Voids 3 1 - Exam GENERAL: The patient is lying in bed and is not in acute distress. NEUROLOGICAL: Higher mental function: The patient is awake, alert, oriented to self, place and time. Patient is following commands. No aphasia and no neglect. Cranial nerves: The pupils are round, equal and reactive to light and accomm odation. Visual torres: right upper quadrant hemianopsia to confrontation. Extraocular movement is intact no nystagmus is noted. Facial sensation is normal to touch throughout. The facial strength is normal throughout. Hearing is normal bilaterally to hand rub. Tongue is midline and moved [id number] without any difficulty. No dysarthria is noted. Shoulder shrug is normal bilaterally. Motor: Gait is deferred. The strength is 5 over 5 throughout. Normal tone and bulk. Cerebellum: Normal finger to nose heel to larson bilaterally. Sensation: Sensation is normal to touch throughout. Reflexes (right/left): 2+ Plantars are downgoing bilaterally. - Labs CBC & Chem 7: 08/07/20 08:43 08/07/20 08:43 Labs: Abnormal Lab Results - Last 24 Hours (Table) 08/06/20 08/06/20 08/07/20 Range/Units 16:55 20:00 06:09 APTT (22.0-30.0) sec POC Glucose (mg/dL) 154 H 120 H 119 H (75-99) mg/dL 08/07/20 08/07/20 Range/Units 08:43 11:45 APTT 89.7 H (22.0-30.0) sec POC Glucose (mg/dL) 106 H (75-99) mg/dL Microbiology - Last 24 Hours (Table) 08/05/20 15:05 Nasal Screen MRSA/MSSA - Final Nasal Swab 08/05/20 14:11 Blood Culture - Preliminary Blood No Growth after 24 hours 08/05/20 14:11 Blood Culture - Preliminary Blood No Growth after 24 hours 08/04/20 09:24 Blood Culture - Preliminary Blood No Growth after 48 hours Assessment and Plan Assessment: Subacute ischemic stroke (left occipital lobe with extension towards the posterior thalamus) with symptoms of right upper quadrant hemianposia). 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 Positive anti-cardiolipin antibodies (diagnosed 20 years-ago while and per hematology team that is considered normal) Diabetes mellitus History of splenic infarct but did not follow-up regarding further work-up History of left renal infarct but did not follow-up regarding further work-up Social Tobacco use Plan: * On aspirin 81mg daily. Plavix was discontinued not by neurology and was started on heparin drip because of DVT. I agree to transition to oral anticoagulant. Continue Lipitor 80 mg daily for secondary stroke prophylaxis. * MRI the brain is reported as subacute infarct over the left occipital lobe with extension towards the posterior thalamus. There is also minimal additional scattered hyperintensity present within the deep white matter which seems chronic upon reviewing it. * 2-D echo was reported as overall left ventricle systolic function is normal with ejection fraction between 55-60%. Bubble study was done but it was limited because unable to rule out due to poor image quality. Left atrial size is normal. Normal left atrial size by volume. * Transesophageal echocardiograms on 08/04/2020: Is reported as normal left ventricular size and systolic function. Normal appearance of left atrial appendage. No evidence of shunting. Mass attached the tip of the anterior mitral valve leaflet measuring 1.1 cm of unclear etiology, rule out vegetation, with mitral regurgitation. Trace tricuspid regurgitation. * Cardiology team is on board . I spoke with Dr. Fatou Arias and patient to tanya godoy cardiothoracic remove the mass. * Blood culture are no growth after 24 hour. * Nasal screen MRSA/MSSA: Pending. * Venous thrombus right upper extremity ultrasound (include jugular and subclavian). No DVT of lower extremities. * Lipid panel: Triglyceride 189, cholesterol is 150, LDL 73, HDL 39. LDL goal in stroke is <70. * TSH: 1.93 (normal). * Continue every 4 hours neuro checks. * Continue continuous cardiac monitoring. * Per hematology team they stated that the the anti-cardiolipin antibodies can be present during . The recommended repeat the anticardiolipin antibody testing. And they also no information from the patient that she was taking aspirin during her 3 pregnancies. * Hypercoagulable work-up: Homocysteine level is 6.21 which is normal. DARA screen is positive but the double-stranded DNA is negative. Anti-cardiolipin IgG/IGA/IgM antibody are normal and reported as negative. * Antithrombin II antigen 100% (normal), Protein S antigen 89% (normal). antistreptolysin O antibody (ASO) 25 (normal). Beta 2 glycopreint1 are negative. antithrombin III antibody (normal). antithrombin III activity 109 (normal 79-109). protein C and protein S antigen antibody (both are normal). von Willebrand factor 170 (normal). * Pending factor V Leiden, MTHFR genotype, Factor 7 and 8 antibody (send out test). * I ordered an event monitor. * Physical therapy, occupational therapy and [employer] are consulted. * CT of the abdomen and pelvis is ordered. I ordered CT of the chest to rule o ut any thrombus. The plan is discussed with the patient, her (who is at bedside) and her nurse. Will continue to follow sporadically. Dr. Chun will take over the neurology coverage tomorrow AM. Roberto Ludwig MD Neuro-Hospitalist Time with Patient: Less than 30
[2020-08-07 14:14] LABS: Erythrocyte Sedimentation Rate 8 mm/hr (0-20)
[2020-08-07 17:00] LABS: Rheumatoid Factor, Qnt <4 IU/mL (0-15)
[2020-08-07 17:01] LABS: Glucose,Whole Blood 118 mg/dL (75-99)
--- NOTE | 2020-08-07 17:18 | PN ---
PROGRESS NOTE DATE OF SERVICE: 08/07/2020 REASON FOR FOLLOWUP: Abnormal CT with a question of mass on the mitral valve and a question of endocarditis. INTERVAL HISTORY: Patient is afebrile. The patient is breathing comfortably. Patient denies having any chest pain, shortness of breath or cough. No nausea, no vomiting. No abdominal pain or diarrhea. PHYSICAL EXAMINATION: Blood pressure is 120/77, pulse of 75, temperature 98. She is 99% on room air. General description: The patient is a middle-aged female up in the chair in no distress. Respiratory system: Unlabored breathing, clear to auscultation. Heart: S1, S2. Regular rate and rhythm. Abdomen soft, no tenderness. Extremities: No edema of the feet. LABS: Hemoglobin is 14.3, white count 4.8. BUN of 12, creatinine 0.52. Blood cultures multiple have been negative. DIAGNOSTIC IMPRESSION AND PLAN: Patient with abnormal AKHIL with a question of mass on the mitral wall. She is clinically not behaving as endocarditis with no fever or elevated white count, normal and negative blood cultures. We will monitor the patient closely off antibiotic therapy. Continue supportive care. MMODL / IJN: [id number] /
[2020-08-07 20:11] LABS: Glucose,Whole Blood 107 mg/dL (75-99)
[2020-08-07] MEDS: ACETAMINOPHEN TAB 325 MG TAB PO PRN (20:19)
--- NOTE | 2020-08-07 20:54 | P.PN ---
Progress Note - Text Progress Note Date: 08/07/20 Chief Complaint: Right facial numbness History of presenting complaint: This is a pleasant 44-year-old patient of Dr. Bell. Chronic stable medical conditions include diabetes, hyperlipidemia, alopecia, anticardiolipin antibody positivity, thrombocytopenia. Patient presented to ER with right facial numbness present for about 3 days and some vision changes. He also felt some dizzy. Also felt the room is spinning around. Last her for about half an hour. The following 2 days she felt she was just not herself. Yesterday morning she noticed that the right side of face and tired of right upper extremity and the right side of her body was numb lasted for a couple of minutes also for a short time she could not see on the right side. Subsequently his symptoms are greatly improved with the meantime. Admitted with acute stroke in the left occipital lobe. Patient on Plavix Lipitor aspirin. found to have a DVT of the right jugular subclavian vein-IV heparin..AKHIL- massat the tip of the anterior mitral valve leaflet 1.1 cm. patient has no clinical infective symptoms. No fever no white count. IV heparin. Today: Comfortable. No cardiopulmonary respiratory symptoms.. On IV heparin. visiting. Review of systems: Was done for constitutional, cardiovascular, GI, pulmonary. relevant finding as above Active Medications Acetaminophen (Acetaminophen Tab 325 Mg Tab) 650 mg PO Q6HR PRN PRN Reason: Fever and/ or Pain Last Admin: 08/07/20 20:19 Dose: 650 mg Documented by: Alprazolam (Alprazolam 0.5 Mg Tab) 0.5 mg PO TID PRN PRN Reason: Anxiety Last Admin: 08/04/20 21:06 Dose: 0.5 mg Documented by: Alprazolam (Alprazolam 0.25 Mg Tab) 0.25 mg PO Q6HR PRN PRN Reason: Mild Anxiety Alprazolam (Alprazolam 0.5 Mg Tab) 0.5 mg PO Q6HR PRN PRN Reason: Moderate Anxiety Aspirin (Aspirin 81 Mg) 81 mg PO DAILY [facility] Last Admin: 08/07/20 09:04 Dose: 81 mg Documented by: Atorvastatin Calcium (Atorvastatin 80 Mg Tab) 80 mg PO DAILY [facility] Last Admin: 08/07/20 09:04 Dose: 80 mg Documented by: Heparin Sodium (Porcine) (Heparin Sodium 1,000 Un/Ml (10ml Vl)) 0 unit IV PER PROTOCOL PRN; Protocol PRN Reason: Low PTT Heparin Sodium (Porcine) (Heparin Sodium 1,000 Un/Ml (10ml Vl)) 0 unit IV PER PROTOCOL PRN; Protocol PRN Reason: Low PTT Heparin Sodium/Sodium Chloride (25,000 unit/ Sodium Chloride) 250 mls @ 9.984 mls/hr IV .Q24H [facility]; Protocol Last Admin: 08/07/20 12:25 Dose: 10 units/kg/hr, 8.32 mls/hr Documented by: Insulin Aspart (Insulin Aspart (Novolog) 100 Unit/Ml Vial) 0 unit SQ ACHS [facility]; Protocol Last Admin: 08/07/20 20:14 Dose: Not Given Documented by: Mupirocin (Mupirocin 2% Oint 22 Gm Tube) 1 applic NASAL BID [facility] Stop: 08/10/20 09:01 Last Admin: 08/07/20 20:19 Dose: 1 applic Documented by: Nitroglycerin (Nitroglycerin Sl Tabs 0.4 Mg Tab) 0.4 mg SUBLINGUAL Q5M PRN PRN Reason: Chest Pain Jardiance ( Empagliflozin) 10 Mg Tablet 10 mg PO DAILY [facility] Last Admin: 08/07/20 09:04 Dose: 10 mg Documented by: Pantoprazole Sodium (Pantoprazole 40 Mg Tablet) 40 mg PO AC-BRKFST [facility] Last Admin: 08/07/20 07:02 Dose: 40 mg Documented by: Past medical history to include: Diabetes, hyperlipidemia, alopecia, anticardiolipin antibody positivity, throbbing 100 charlene Social history: with 2 children. Patient smoked for 25 years stopped in 2018. Alcohol occasionally. Occasional marijuana use. Physical examination: VITAL SIGNS: 98, 75, 18, 120 with 77, 99% room air GENERAL: sitting up in chair, comfortable. EYES: Pupils equal. Conjunctiva normal. HEENT: External appearance of nose and ears normal, oral cavity grossly normal. NECK: JVD not raised; masses not palpable. HEART: First and second heart sounds are normal; no edema. LUNGS: Respiratory rate normal; clear to auscultation. ABDOMEN: Soft, nontender, liver spleen not palpable, no masses palpable. PSYCH: Alert and oriented x3; mood and affect normal. INVESTIGATIONS, reviewed in the clinical context: August 07: CT abdomen pelvis: Nonspecific findings August 06: WBC 5.1 hemoglobin 13 potassium 4.2 creatinine 0.46 Cardiac catheterization: Normal coronaries AKHIL: 1.1 cm mass on the anterior mitral valve leaflet August 04: WBC 5.2 hemoglobin 13.2 WBC 6.1 hemoglobin 13.8 platelets 213 potassium 4.0 creatinine 0.49 Troponin I less than 0.012 TSH 1.9 Antinuclear antibody: screen positive. Negative: Double-stranded DNA, anticardiolipin IgG antibody 2.1, cardiolipin IgG negative anticardiolipin IgM 16.8 Coronavirus [PCR] not detected EKG tracing personally reviewed by me-normal sinus rhythm, prolonged QT Computed tomography scan of the brain without contrast: Infarct involving the left inferior occipital lobe, remote infarct. CT angiogram head and neck: No significant abnormality seen 2-D echocardiogram: EF 55-60%. Bubble study unable to be done. Brain MRI shows restricted diffusion involving the region of the inferior left occipital lobe. Ultrasound Doppler upper extremity: Venous thromboses right upper extremity to include the jugular and subclavian vein. Assessment and plan: -Acute cardioembolic stroke in the left occipital lobe symptoms of right upper quadrant todd-anopsia. On aspirin, Lipitor, Plavix, -Acute DVT in the right jugular and subclavian vein. On IV heparin -1.1 cm mass on anterior mitral valve leaflet. Patient has no infective symptoms. Blood cultures are negative. 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 Diabetes mellitus type 2 Continue with jardiance. Follow Accu-Cheks -Hyperlipidemia Lipitor -Obesity BMI 33.8 Weight loss measures and follow-up with PCP -IV heparin monitoring -Cardiac catheterization showing normal coronaries -Nonalcoholic fatty liver disease Follow with GI in the office Care was discussed with the patient. Infectious workup has been negative. Patient slightly anxious about the surgery. Reassured.
[2020-08-08 06:07] LABS: Glucose,Whole Blood 104 mg/dL (75-99)
[2020-08-08] MEDS: INSULIN ASPART (NovoLOG) 100 UNIT/ML VIAL SQ SCH ×4 (06:08→20:14)
[2020-08-08] MEDS: PANTOPRAZOLE 40 MG TABLET PO SCH (06:30)
--- NOTE | 2020-08-08 08:49 | P.PN ---
Subjective Progress Note Date: 08/08/20 Principal diagnosis: Abnormal mitral valve on transesophageal echocardiogram. 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 Past medical history significant for diabetes mellitus type 2, anticardiolipin antibody positive which was diagnosed during her pregnancies, alopecia, hepatosplenomegaly, previous splenic infarct and more recent renal infarction, considered thrombosis or embolism on CT scan of her abdomen in December 2019, obesity, history of elevated AST and ALT, chronic ongoing tobacco dependence, occasional marijuana use, occasional EtOH use, GERD, family history of early onset coronary artery disease with her mother having an AK in her early 50s, and history of mild thrombocytopenia with platelet count of 120 to 139K/UL which is followed by Dr. Lobato from hematology in [facility]. The patient is seen in follow-up today 08/08/2020 at her bedside on the cardiac stepdown unit. She is currently laying in bed, is awake, alert and oriented 3. Her is present at her bedside. She denies any complaints of pain, shortness of breath or dizziness. She does report that she had an episode of nausea last evening and also felt fatigued throughout the night. She also continues to complain of peripheral vision disturbance to her right eye, which she states has not improved or gotten worse since her admission. The patient remained hemodynamically stable and is currently on no inotropic or pressor supports and she has been afebrile the last 24 hours. Oxygen saturations are 97% on room air and she is achieving 2500 mL on her incentive spirometry. Laboratory results this morning are pending. She is scheduled for a computed tomography scan of her chest today. A computed tomography scan of her abdomen/L this was completed yesterday which the report shows a small focal area of chronic hypoperfusion or infarcts upper pole and lower pole left kidney suspected, overall renal volumes are symmetric and within normal limits, mild splenomegaly with homogeneous enhancement, no focal areas of diminished per fusion or infarct, and a patent abdominal aorta and branch vessels without significant plaque or stenosis. Her blood culture results remained to show no growth after 48 and 72 hours. Remote telemetry showing normal sinus rhythm heart rate 86 BPM. She remains on heparin drip per protocol, 81 mg of aspirin daily and Lipitor 80 mg by mouth daily. Objective - Vital Signs Vital signs: Vital Signs Temp 97.8 F 08/08/20 04:00 Pulse 77 08/08/20 04:00 Resp 16 08/08/20 04:00 BP 99/62 08/08/20 04:00 Pulse Ox 97 08/08/20 04:00 Intake & Output 08/07/20 08/08/20 08/08/20 18:59 06:59 18:59 Intake Total 656.479 780 Balance 656.479 780 Weight 82.8 kg Intake: IV 160 0.9 160 Intake, IV Titration 176.479 Amount Heparin Sod,Pork in 0.45% 176.479 NaCl 25,000 unit In 0.45 % NaCl 1 250ml.bag @ 12 UNITS/KG/HR 9.984 mls/hr IV .Q24H [facility] Rx#: [id number] Oral 480 620 Other: Voiding Method Toilet # Voids 2 4 - Constitutional General appearance: Present: cooperative, no acute distress, obese - EENT Eyes: Present: PERRLA, normal appearance. Absent: scleral icterus ENT: Present: hearing grossly normal - Neck Details: Neck is supple, no JVD, no lymphadenopathy. - Respiratory Details: Lung sounds are essentially clear throughout. No wheezes, rhonchi or crackles. Respirations are symmetrical and nonlabored. Oxygen saturation 97% on room air. Achieving 2500 mL on her incentive spirometry. - Cardiovascular Details: Regular rhythm and rate. S1 and S2 present, negative for S3, gallop or murmur. Remote telemetry showing normal sinus rhythm heart rate 86 BPM. - Gastrointestinal Gastrointestinal Comment(s): Abdomen is soft, nontender and nondistended. Active bowel sounds present in all 4 abdominal quadrants. No guarding or rigidity. No organomegaly appreciated. - Genitourinary Genitourinary Comment(s): Continues to void. - Integumentary Integumentary Comment(s): Skin is warm and dry. No clubbing or cyanosis is present. No rash or abnormal pigmentation is present. - Neurologic Neurologic Comment(s): Peripheral vision disturbance to her right eye. - Musculoskeletal Musculoskeletal: Present: gait normal, strength equal bilaterally - Psychiatric Psychiatric: Present: A&O x's 3, appropriate affect, intact judgment & insight - Allied health notes Allied health notes reviewed: nursing - Labs CBC & Chem 7: 08/07/20 08:43 08/07/20 08:43 Labs: Abnormal Lab Results - Last 24 Hours (Table) 08/07/20 08/07/20 08/07/20 Range/Units 08:43 08:43 08:43 Lymphocytes # 0.2 L (1.0-4.8) k/uL APTT 89.7 H (22.0-30.0) sec Sodium 136 L (137-145) mmol/L Glucose 196 H (74-99) mg/dL POC Glucose (mg/dL) (75-99) mg/dL AST 82 H (14-36) U/L ALT 66 H (4-34) U/L C-Reactive Protein 1.2 H (<1.0) mg/dL 08/07/20 08/07/20 08/07/20 Range/Units 11:45 16:59 17:53 Lymphocytes # (1.0-4.8) k/uL APTT 58.7 H (22.0-30.0) sec Sodium (137-145) mmol/L Glucose (74-99) mg/dL POC Glucose (mg/dL) 106 H 118 H (75-99) mg/dL AST (14-36) U/L ALT (4-34) U/L C-Reactive Protein (<1.0) mg/dL 08/07/20 08/08/20 Range/Units 20:09 06:05 Lymphocytes # (1.0-4.8) k/uL APTT (22.0-30.0) sec Sodium (137-145) mmol/L Glucose (74-99) mg/dL POC Glucose (mg/dL) 107 H 104 H (75-99) mg/dL AST (14-36) U/L ALT (4-34) U/L C-Reactive Protein (<1.0) mg/dL Microbiology - Last 24 Hours (Table) 08/05/20 14:11 Blood Culture - Preliminary Blood No Growth after 48 hours 08/05/20 14:11 Blood Culture - Preliminary Blood No Growth after 48 hours 08/04/20 09:24 Blood Culture - Preliminary Blood No Growth after 72 hours - Imaging and Cardiology CT scan - abdomen: report reviewed Assessment and Plan Assessment: 1. Subacute ischemic stroke 2. 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 Diabetes mellitus type 2 4. Anticardiolipin antibody positive, diagnosed 20 years ago while , and anticardiolipin antibody negative this admission 5. Acute DVT in the right jugular and subclavian vein 6. History of hepatosplenomegaly 7. History of splenic infarct 8. History of left renal infarct 9. History of elevated liver enzymes 10. History of thrombocytopenia followed by Dr. Mendiola from hematology on an outpatient basis 11. Obesity 12. Chronic ongoing tobacco dependence 13. Occasional marijuana use 14. Occasional EtOH use 15. Family history of early onset coronary artery disease with her mom having a myocardial infarction in her 50s 16. GERD Plan: 1. Continue to optimize medical management, low-dose aspirin, statin, heparin drip per protocol. 2. Preoperative teaching reinforced with patient and her present at her bedside. 3. She has been cleared by dental for surgery. 4. Blood culture results are negative for any growth after 48 and 72 hours. 5. Encourage use of her incentive spirometry 10 times every hour while awake. Bedside FEV1 was completed on 08/06/2020 which showed a predicted value of 75%. 6. Medical management and other comorbidities per primary care service. 7. Importance of risk modification discussed and reinforced with the patient, including smoking cessation. 8. A computed tomography scan of the chest is scheduled for today, per neurology's recommendations. 10. Consult to Dr. Wilder from rheumatology, recommendations pending. 11. Continue to optimize medical management with low-dose aspirin, statin, heparin drip per protocol. 12. More recommendations to follow based on patient's clinical course. Time with Patient: Greater than 30
[2020-08-08 08:52] LABS: Basophils % (A) 1 %; Eosinophils # (A) 0.3 k/uL (0-0.7); Eosinophils % (A) 8 %; HCT 38.8 % (34.0-46.0); HGB 12.9 gm/dL (11.4-16.0); Lymphocytes # (A) 0.3 k/uL (1.0-4.8); Lymphocytes % (A) 7 %; MCH 28.6 pg (25.0-35.0); MCHC 33.2 g/dL (31.0-37.0); Mean Platelet Volume 7.1; Monocytes # (A) 0.2 k/uL (0-1.0); Monocytes % (A) 5 %; Neutrophils # (A) 3.3 k/uL (1.3-7.7); Neutrophils % (A) 78 %; Platelet Count 250 k/uL (150-450); RBC 4.51 m/uL (3.80-5.40); RDW 15.1 % (11.5-15.5); WBC 4.2 k/uL (3.8-10.6)
[2020-08-08 09:12] LABS: Amorphous Sediment,Urine Rare /hpf; Appearance,Urine Cloudy (Clear); Bacteria,Urine Rare /hpf; Bilirubin,Urine Negative (Negative); Blood,Urine Negative (Negative); Color,Urine Yellow; Glucose,Urine (UA) 4+ (Negative); Hyaline Casts,Urine 1 /lpf (0-2); Ketones,Urine Negative (Negative); Leukocyte Esterase,Urine Large (Negative); Nitrite,Urine Positive (Negative); PH, Urine 5.5 (5.0-8.0); Protein,Urine Negative (Negative); RBC,Urine 3 /hpf (0-5); Specific Gravity,Urine 1.017 (1.001-1.035); Squamous Epithelial Cell,Urine 3 /hpf (0-4); Urobilinogen,Urine <2.0 mg/dL (<2.0); WBC,Urine 6 /hpf (0-5)
[2020-08-08 09:20] LABS: African American GFR (CKD) >90 (>60 ml/min/1.73 sqM); Anion Gap 5 mmol/L; Blood Urea Nitrogen 10 mg/dL (7-17); Calcium 9.2 mg/dL (8.4-10.2); Carbon Dioxide 27 mmol/L (22-30); Chloride 102 mmol/L (98-107); Glucose 97 mg/dL (74-99); Non-African American GFR(CKD) >90 (>60 ml/min/1.73 sqM); Potassium 4.5 mmol/L (3.5-5.1); Sodium 134 mmol/L (137-145)
[2020-08-08] MEDS: MUPIROCIN 2% OINT 22 GM TUBE NASAL SCH ×2 (09:28→20:14)
[2020-08-08] MEDS: ATORVASTATIN 80 MG TAB PO SCH (09:28)
[2020-08-08] MEDS: ASPIRIN 81 MG PO SCH (09:28)
--- NOTE | 2020-08-08 11:47 | P.PN ---
Subjective Progress Note Date: 08/08/20 Principal diagnosis: Hx anticardiolopin ab positive during preg, presenting with TIA Spoke with BEAUTY DIRECTOR CTS, awaiting Rheumatology work-up for underlying cause of recurrent thrombolic events. In the interim maintains on anticoagulation. Await further autoimmune work-up. Concern of underlying mitral showering. Objective - Vital Signs Vital signs: Vital Signs Temp 97.8 F 08/08/20 04:00 Pulse 77 08/08/20 04:00 Resp 16 08/08/20 04:00 BP 99/62 08/08/20 04:00 Pulse Ox 97 08/08/20 04:00 Intake & Output 08/07/20 08/08/20 08/08/20 18:59 06:59 18:59 Intake Total 656.479 780 240 Output Total 350 Balance 656.479 780 -110 Weight 82.8 kg Intake: IV 160 0.9 160 Intake, IV Titration 176.479 Amount Heparin Sod,Pork in 0.45% 176.479 NaCl 25,000 unit In 0.45 % NaCl 1 250ml.bag @ 12 UNITS/KG/HR 9.984 mls/hr IV .Q[facility]H [facility] Rx#: [id number] Oral 480 620 240 Output: Urine 350 Other: Voiding Method Toilet # Voids 2 4 - Exam - Constitutional Constitutional Comment(s): Moonface appearance General appearance: Present: average body habitus, cooperative, no acute distress - EENT Eyes: Present: anicteric sclerae, EOMI ENT: Present: hearing grossly normal -HEART RRR - Respiratory Respiratory: bilateral: CTA - Peripheral edema leg Peripheral Edema: bilateral: None - Gastrointestinal General gastrointestinal: Present: normal bowel sounds, soft - Psychiatric Psychiatric: Present: A&O x's 3, appropriate affect, intact judgment & insight - Labs CBC & Chem 7: 08/08/20 07:14 08/08/20 07:14 Labs: Abnormal Lab Results - Last 24 Hours (Table) 08/07/20 08/07/20 08/07/20 Range/Units 08:43 08:43 11:45 Lymphocytes # 0.2 L (1.0-4.8) k/uL APTT (22.0-30.0) sec Sodium 136 L (137-145) mmol/L Glucose 196 H (74-99) mg/dL POC Glucose (mg/dL) 106 H (75-99) mg/dL AST 82 H (14-36) U/L ALT 66 H (4-34) U/L C-Reactive Protein 1.2 H (<1.0) mg/dL Urine Appearance (Clear) Urine Glucose (UA) (Negative) Urine Nitrite (Negative) Ur Leukocyte Esterase (Negative) Urine WBC (0-5) /hpf Amorphous Sediment (None) /hpf Urine Bacteria (None) /hpf 08/07/20 08/07/20 08/07/20 Range/Units 16:59 17:53 20:09 Lymphocytes # (1.0-4.8) k/uL APTT 58.7 H (22.0-30.0) sec Sodium (137-145) mmol/L Glucose (74-99) mg/dL POC Glucose (mg/dL) 118 H 107 H (75-99) mg/dL AST (14-36) U/L ALT (4-34) U/L C-Reactive Protein (<1.0) mg/dL Urine Appearance (Clear) Urine Glucose (UA) (Negative) Urine Nitrite (Negative) Ur Leukocyte Esterase (Negative) Urine WBC (0-5) /hpf Amorphous Sediment (None) /hpf Urine Bacteria (None) /hpf 08/08/20 08/08/20 08/08/20 Range/Units 06:05 07:14 07:14 Lymphocytes # 0.3 L (1.0-4.8) k/uL APTT 60.9 H (22.0-30.0) sec Sodium (137-145) mmol/L Glucose (74-99) mg/dL POC Glucose (mg/dL) 104 H (75-99) mg/dL AST (14-36) U/L ALT (4-34) U/L C-Reactive Protein (<1.0) mg/dL Urine Appearance (Clear) Urine Glucose (UA) (Negative) Urine Nitrite (Negative) Ur Leukocyte Esterase (Negative) Urine WBC (0-5) /hpf Amorphous Sediment (None) /hpf Urine Bacteria (None) /hpf 08/08/20 08/08/20 Range/Units 07:14 08:18 Lymphocytes # (1.0-4.8) k/uL APTT (22.0-30.0) sec Sodium 134 L (137-145) mmol/L Glucose (74-99) mg/dL POC Glucose (mg/dL) (75-99) mg/dL AST (14-36) U/L ALT (4-34) U/L C-Reactive Protein (<1.0) mg/dL Urine Appearance Cloudy H (Clear) Urine Glucose (UA) 4+ H (Negative) Urine Nitrite Positive H (Negative) Ur Leukocyte Esterase Large H (Negative) Urine WBC 6 H (0-5) /hpf Amorphous Sediment Rare H (None) /hpf Urine Bacteria Rare H (None) /hpf Microbiology - Last 24 Hours (Table) 08/05/20 14:11 Blood Culture - Preliminary Blood No Growth after 48 hours 08/05/20 14:11 Blood Culture - Preliminary Blood No Growth after 48 hours 08/04/20 09:24 Blood Culture - Preliminary Blood No Growth after 72 hours Assessment and Plan Plan: - Imaging and Cardiology MRI - head: report reviewed Assessment and Plan Recurrent Thrombolic Events: - Positive Anticardiolipin Antibody - Positive during . - Pt took asa during her 3 pregnancies. - Anticardiolipin antibodies can be present during .Negative at this time - Testing was done here, showing patient is not positive for any antibodies. - Would recommend testing for anticardiolipin antibodies one more time to ensure they are not present before being able to say, with certainty, that patient does not have antibodies. Agree with Neurology plan for treatment of acute TIA. DARA positive Further work-up per rheumatology pending Lupus Anticoagulant remains pending CVA (cerebral vascular accident)/TIA's - Rt jugular and medial subclavian thrombosis, all other extremities neg for DVT. - Heparin drip continued - Beta glycoprotein and anticardolipin antibodies negative - Lupus anticoagulant from this admission pending Pending lupus anticoagulant-if positive, in conjunction with stroke and now DVT, recommendation will be for lifelong anticoagulation with coumadin. If negative then other plans anticoagulation may be more appropriate. - She will follow up with Dr. Mendiola on ID for further plans. Rheumatology following while inpatient. Transition to coumadin, once remainder of studies are resulted. can use treatment dose lovenox for bridging if needed for discharge. Discussed with Patient Financial Advocate. History of menorrhagia, aware of bleeding risks on anticoagulation and will monitor cbc as outpatient and monitor menses. - SHE IS NOT a candidate for control to regulate menses. Discussed with CTS BEAUTY DIRECTOR and they are awaiting further testing to result before invasive approach.
[2020-08-08 11:51] LABS: Glucose,Whole Blood 148 mg/dL (75-99)
--- NOTE | 2020-08-08 12:33 | CT ---
EXAMINATION TYPE: CT chest wo/w con DATE OF EXAM: 08/08/2020 COMPARISON: NONE HISTORY: Recent stroke, cardiac vegetations, rule out thrombus CT DLP: 835.7 mGycm. Automated Exposure Control for Dose Reduction was Utilized. TECHNIQUE: CT scan of the thorax is performed following without and with IV Contrast, patient inject ed with 100 mL of Isovue 300. FINDINGS: LUNGS: [id number] left basilar linear scarring and/or atelectasis. Right lung is clear. No pleu ral effusion or pneumothorax seen bilaterally. No suspicious focal consolidation or groundglass opaci ty. No concerning masses MEDIASTINUM: There are prominent but subcentimeter mediastinal lymph nodes. No abnormal greater than 1 cm hilar or mediastinal lymph nodes clearly seen. Main pulmonary artery measures 2.7 cm in diameter axial image 22. Adjacent fat aorta measures up to 3.0 cm in diameter. No cardiomegaly or pericardial effusion is seen. No distinct filling defect in right or left heart chambers to suggest thrombus. Left upper extremity injection shows diminished heterogeneous enhancement of the brachiocephalic mindi ry after draining of the less well-opacified left internal jugular vein, this is asymmetrically large r and more hypodense to the draining right internal jugular vein. In addition there is extensive lauren ateral flow within the prevascular space extending into the subcarinal and left hilar regions with pr evertebral extension. There is also extension along the inferior pericardium where appears to drain i nto the suprahepatic IVC. Recent bilateral upper extremity DVT study showed no left-sided acute throm bus, I suspect findings product of chronic thrombus which has resolved in mixing of contrast opacifie d and noncontrast opacified vessels. OTHER: Slight underlying scoliotic curvature. Straightening of spine. Mild splenomegaly at 13.9 cm co milvia image 62. Redemonstration of prominent patent collateral vessel left upper quadrant. IMPRESSION: No intracardiac filling defect or thrombus. Other findings as detailed above.
[2020-08-08 12:47] LABS: Anti-DNA, DS unit <1.0 IU/mL; DNA Double-Stranded NEGATIVE (NEGATIVE); Scleroderma SC-70 Ab <0.2 AI
[2020-08-08 12:48] LABS: Cyclic Citrull Pep IgG Unit <0.5 U/mL; Cyclic Citrullinated Pep IgG NEGATIVE (NEGATIVE)
[2020-08-08 12:51] LABS: Anti-Smith Ab Interp NEGATIVE (NEGATIVE)
--- NOTE | 2020-08-08 13:16 | P.PN ---
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 We have been asked to see in consultation for AKHIL. She presented to the hospital with symptoms of feeling dizzy, lightheaded, right-sided numbness and peripheral vision changes on the right. While at work she continued to feel lightheaded and had an acute onset of right-sided numbness that went from her waist all the way up to her head. Diagnostic testing indicates she had a left inferior also pedal lobe infarct. 08/02/20 Echocardiogram obtained revealed preserved LV systolic function with ejection fraction 55-60% however they were unable to comment on the possibility of a shunt due to poor image quality. Venous dopplers bilateral upper and lower extremities on 08/03- which revealed non-occlusive RUE DVT within right jugular, medial subclavian vein. She underwent AKHIL on 08/04/20 which revealed evidence of a 1.1cm mass on the tip of the anterior mitral valve leaflets of unclear etiology. She underwent cardiac catheterization on 08/05/20 which revealed no evidence of obstructive coronary disease. Patient seen and examined at bedside, no complaints, and doing well. She denies chest pain, shortness of breath, palpitations, nausea, or abdominal pain. She is currently being maintained on heparin drip, aspirin 81mg daily, atorvastatin 80my daily. Telemetry tracings - patient in sinus mechanism HR 70-80s. PHYSICAL EXAMINATION Blood pressure 134/77 heart rate 87afebrile and maintaining oxygen saturation on room air. CONSTITUTIONAL: No apparent distress. HEENT: Head is normocephalic. No JVD. No carotid bruit. CHEST EXAMINATION: Lungs are clear to auscultation. No chest wall tenderness is noted on palpation or with deep breathing. HEART EXAMINATION: Regular rate and rhythm. S1, S2 heard. No murmurs, gallops or rub. ABDOMEN: Soft, nontender. Positive bowel sounds. EXTREMITIES: 2+ peripheral pulses, no lower extremity edema and no calf te nderness. NEUROLOGIC EXAMINATION: Patient is awake, alert and oriented x3. ASSESSMENT Acute left occipital lobe infarct, thought to be embolic in nature per neurology. 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 Cardiothoracic surgery is following patient regarding surgical intervention to remove the mass. Patient has been cleared by dental for surgery Neurology following Further recommendations based on patient's clinical course. Nurse Practitioner note has been reviewed, I agree with a documented findings and plan of care. Patient was seen and examined. Objective - Vital Signs Vital signs: Vital Signs Temp 98.0 F 08/08/20 08:00 Pulse 87 08/08/20 08:00 Resp 16 08/08/20 04:00 BP 134/77 08/08/20 08:00 Pulse Ox 96 08/08/20 08:00 Intake & Output 08/07/20 08/08/20 08/08/20 18:59 06:59 18:59 Intake Total 656.479 780 240 Output Total 350 Balance 656.479 780 -110 Weight 82.8 kg Intake: IV 160 0.9 160 Intake, IV Titration 176.479 Amount Heparin Sod,Pork in 0.45% 176.479 NaCl 25,000 unit In 0.45 % NaCl 1 250ml.bag @ 12 UNITS/KG/HR 9.984 mls/hr IV .Q24H [facility] Rx#: [id number] Oral 480 620 240 Output: Urine 350 Other: Voiding Method Toilet # Voids 2 4 - Labs CBC & Chem 7: 08/08/20 07:14 08/08/20 07:14 Labs: Abnormal Lab Results - Last 24 Hours (Table) 08/07/20 08/07/20 08/07/20 Range/Units 12:30 16:59 17:53 Lymphocytes # (1.0-4.8) k/uL APTT 58.7 H (22.0-30.0) sec Sodium (137-145) mmol/L POC Glucose (mg/dL) 118 H (75-99) mg/dL Urine Appearance (Clear) Urine Glucose (UA) (Negative) Urine Nitrite (Negative) Ur Leukocyte Esterase (Negative) Urine WBC (0-5) /hpf Amorphous Sediment (None) /hpf Urine Bacteria (None) /hpf DARA Screen POSITIVE A (NEGATIVE) 08/07/20 08/08/20 08/08/20 Range/Units 20:09 06:05 07:14 Lymphocytes # 0.3 L (1.0-4.8) k/uL APTT (22.0-30.0) sec Sodium (137-145) mmol/L POC Glucose (mg/dL) 107 H 104 H (75-99) mg/dL Urine Appearance (Clear) Urine Glucose (UA) (Negative) Urine Nitrite (Negative) Ur Leukocyte Esterase (Negative) Urine WBC (0-5) /hpf Amorphous Sediment (None) /hpf Urine Bacteria (None) /hpf DARA Screen (NEGATIVE) 08/08/20 08/08/20 08/08/20 Range/Units 07:14 07:14 08:18 Lymphocytes # (1.0-4.8) k/uL APTT 60.9 H (22.0-30.0) sec Sodium 134 L (137-145) mmol/L POC Glucose (mg/dL) (75-99) mg/dL Urine Appearance Cloudy H (Clear) Urine Glucose (UA) 4+ H (Negative) Urine Nitrite Positive H (Negative) Ur Leukocyte Esterase Large H (Negative) Urine WBC 6 H (0-5) /hpf Amorphous Sediment Rare H (None) /hpf Urine Bacteria Rare H (None) /hpf DARA Screen (NEGATIVE) 08/08/20 Range/Units 11:34 Lymphocytes # (1.0-4.8) k/uL APTT (22.0-30.0) sec Sodium (137-145) mmol/L POC Glucose (mg/dL) 148 H (75-99) mg/dL Urine Appearance (Clear) Urine Glucose (UA) (Negative) Urine Nitrite (Negative) Ur Leukocyte Esterase (Negative) Urine WBC (0-5) /hpf Amorphous Sediment (None) /hpf Urine Bacteria (None) /hpf DARA Screen (NEGATIVE) Microbiology - Last 24 Hours (Table) 08/04/20 09:24 Blood Culture - Preliminary Blood No Growth after 96 hours 08/05/20 14:11 Blood Culture - Preliminary Blood No Growth after 48 hours 08/05/20 14:11 Blood Culture - Preliminary Blood No Growth after 48 hours
[2020-08-08 13:30] LABS: Hepatitis B Surface Antigen Non-Reactive (Non-Reactive); Hepatitis C IgG Antibody Non-Reactive (Non-Reactive)
[2020-08-08 14:18] VITALS: BMI 30.4
[2020-08-08 14:42] LABS: APTT 90 Sec(s) (<43); APTT 1:1 Mix 59 Sec(s) (<43); DRVVT 1:1 Mix 42 Sec(s) (<44); Dilute Russell Viper Venom 48 Sec(s) (<44); Hexagonal Phase Neutralization Positive (Negative)
--- NOTE | 2020-08-08 15:39 | PN ---
PROGRESS NOTE DATE OF SERVICE: 08/08/2020 REASON FOR FOLLOWUP: Abnormal AKHIL with a concern about possible vegetation. INTERVAL HISTORY: The patient remains afebrile. The patient has been breathing comfortably. The patient denies having any chest pain or shortness of breath or cough. No abdominal pain or diarrhea. PHYSICAL EXAMINATION: Blood pressure 134/77, pulse of 87, temperature 98. She is 96% on room air. General description is a middle-aged female up in the bed in no distress. RESPIRATORY SYSTEM: Unlabored breathing. Clear to auscultation anteriorly. HEART: S1, S2. Regular rate and rhythm. ABDOMEN: Soft. No tenderness. LABS: Hemoglobin is 12.4, white count 4.2. BUN of 10, creatinine 0.57. Multiple blood cultures have been negative. The patient has normal CRP and sedimentation rate. DIAGNOSTIC IMPRESSION AND PLAN: Patient with abnormality seen on her transesophageal echocardiogram with abnormality seen on the mitral valve; mass and question of vegetation. Patient is clinically not behaving as vegetation or infective endocarditis. The patient did not have any fever, elevated white count. CRP normal. She did have multiple blood cultures which have been negative. No need for antibiotic therapy at this point. Infectious Disease Service will sign off. Please call back with any question regarding her infectious disease care. MMODL / IJN: [id number] /
--- NOTE | 2020-08-08 16:27 | P.CONS ---
History of Present Illness - Reason for Consult Consult date: 08/07/20 possible SLE Past Medical History Past Medical History: Diabetes Mellitus, GERD/Reflux, Hyperlipidemia Additional Past Medical History / Comment(s): takes lisinopril due to diabetes, not high BP; alopecia, anticardiolipin antibody positive, thrombocytopenia, history of elevated liver enzymes, hepatosplenomegaly, splenic infarct and left renal infarct. History of Any Multi-Drug Resistant Organisms: None Reported Past Surgical History: Tubal Ligation Additional Past Surgical History / Comment(s): COLONOSCOPY x2, history of bone marrow biopsy in 2017 Past Anesthesia/Blood Transfusion Reactions: No Reported Reaction Past Psychological History: No Psychological Hx Reported Smoking Status: Current some day smoker Past Alcohol Use History: Occasional Past Drug Use History: Marijuana - Past Family History Mother Family Medical History: No Reported History Additional Family Medical History / Comment(s): Mother had a CT in her 50s. Father History Unknown: Yes Medications and Allergies Home Medications Medication Instructions Recorded Confirmed Type Empagliflozin [Jardiance] 10 mg PO DAILY 08/02/20 08/02/20 History Omeprazole 20 mg PO DAILY 08/02/20 08/02/20 History lisinopriL [Zestril] 5 mg PO DAILY 08/02/20 08/02/20 History Allergies Allergy/AdvReac Type Severity Reaction Status Date / Time No Known Allergies Allergy Verified 08/02/20 07:49 Physical Exam Vitals: Vital Signs Temp Pulse Resp BP Pulse Ox 08/08/20 12:00 79 109/59 98 08/08/20 08:00 98.0 F 87 134/77 96 08/08/20 04:00 97.8 F 77 16 99/62 97 08/08/20 01:15 86 17 08/08/20 00:00 97.9 F 86 17 109/73 97 08/07/20 20:00 97.6 F 73 16 102/56 96 Intake and Output 08/08/20 08/08/20 08/08/20 06:59 14:59 22:59 Intake Total 560 240 Output Total 350 Balance 560 -110 Intake: IV 160 0.9 160 Oral 400 240 Output: Urine 350 Other: Voiding Method Toilet # Voids 4 Weight 82.8 kg 82.8 kg Results CBC & Chem 7: 08/08/20 07:14 08/08/20 07:14 Labs: Abnormal Lab Results - Last 24 Hours (Table) 08/04/20 08/07/20 08/07/20 Range/Units 12:26 12:30 16:59 Lymphocytes # (1.0-4.8) k/uL APTT (22.0-30.0) sec Lupus Anticoag aPTT 90 H (<43) Sec(s) Lupus Anticoag PTT Mix 59 H (<43) Sec(s) Dil David Viper Venom 48 H (<44) Sec(s) Lupus Hexagonal Phase Positive A (Negative) Sodium (137-145) mmol/L POC Glucose (mg/dL) 118 H (75-99) mg/dL Urine Appearance (Clear) Urine Glucose (UA) (Negative) Urine Nitrite (Negative) Ur Leukocyte Esterase (Negative) Urine WBC (0-5) /hpf Amorphous Sediment (None) /hpf Urine Bacteria (None) /hpf DARA Screen POSITIVE A (NEGATIVE) 08/07/20 08/07/20 08/08/20 Range/Units 17:53 20:09 06:05 Lymphocytes # (1.0-4.8) k/uL APTT 58.7 H (22.0-30.0) sec Lupus Anticoag aPTT (<43) Sec(s) Lupus Anticoag PTT Mix (<43) Sec(s) Dil David Viper Venom (<44) Sec(s) Lupus Hexagonal Phase (Negative) Sodium (137-145) mmol/L POC Glucose (mg/dL) 107 H 104 H (75-99) mg/dL Urine Appearance (Clear) Urine Glucose (UA) (Negative) Urine Nitrite (Negative) Ur Leukocyte Esterase (Negative) Urine WBC (0-5) /hpf Amorphous Sediment (None) /hpf Urine Bacteria (None) /hpf DARA Screen (NEGATIVE) 08/08/20 08/08/20 08/08/20 Range/Units 07:14 07:14 07:14 Lymphocytes # 0.3 L (1.0-4.8) k/uL APTT 60.9 H (22.0-30.0) sec Lupus Anticoag aPTT (<43) Sec(s) Lupus Anticoag PTT Mix (<43) Sec(s) Dil David Viper Venom (<44) Sec(s) Lupus Hexagonal Phase (Negative) Sodium 134 L (137-145) mmol/L POC Glucose (mg/dL) (75-99) mg/dL Urine Appearance (Clear) Urine Glucose (UA) (Negative) Urine Nitrite (Negative) Ur Leukocyte Esterase (Negative) Urine WBC (0-5) /hpf Amorphous Sediment (None) /hpf Urine Bacteria (None) /hpf DARA Screen (NEGATIVE) 08/08/20 08/08/20 Range/Units 08:18 11:34 Lymphocytes # (1.0-4.8) k/uL APTT (22.0-30.0) sec Lupus Anticoag aPTT (<43) Sec(s) Lupus Anticoag PTT Mix (<43) Sec(s) Dil David Viper Venom (<44) Sec(s) Lupus Hexagonal Phase (Negative) Sodium (137-145) mmol/L POC Glucose (mg/dL) 148 H (75-99) mg/dL Urine Appearance Cloudy H (Clear) Urine Glucose (UA) 4+ H (Negative) Urine Nitrite Positive H (Negative) Ur Leukocyte Esterase Large H (Negative) Urine WBC 6 H (0-5) /hpf Amorphous Sediment Rare H (None) /hpf Urine Bacteria Rare H (None) /hpf DARA Screen (NEGATIVE) Microbiology - Last 24 Hours (Table) 08/04/20 09:24 Blood Culture - Preliminary Blood No Growth after 96 hours 08/05/20 14:11 Blood Culture - Preliminary Blood No Growth after 48 hours 08/05/20 14:11 Blood Culture - Preliminary Blood No Growth after 48 hours Assessment and Plan Assessment: This is a 44-year-old female seen in [facility] on 08/07/20. The patient was admitted about five days ago for evaluation of a stroke. She is currently on IV heparin for anticoagulation. The patient apparently was doing relatively well and noticed some dizziness and fogginess and vision disturbances the weekend before and continue to feel unwell while at work Saturday night. She had an episode that evening at work which she feels numb in the right side of her face On the right side of her upper body and this resolved in a minute. She ended up going to the hospital Saturday and was admitted and was treated with IV heparin for stroke but she denies any residual deficits. During work up she was also found to have a Possible mass/vegetation On her valve. She is currently seeing infectious disease, hematology, cardiology and cardiothoracic surgery and they are considering surgical removal of the mass/vegetation. Currently they are thinking more along the lines of a mess since all the cultures are negative. She gives a history that about 5 to 6 years ago she had a phase when she lost a lot of hair And she also had patches of baldness and was diagnosed with alopecia areata and needed steroid injections in the scalp done by Dr. Rai . She does not recall any diagnosis of lupus at the time. She attribute that episode to severe stress because her had just broken his leg. She also was diagnosed with diabetes at the same time and was started on medication. She felt relatively well after that and had a couple episodes of abdominal pain the summer of last year and had work up through [facility] and hematology that was found to have splenic infarcts and did have a bone marrow biopsy as well done by [facility] and the patient believes it was negative. She was told to follow up in the fall but did not do so as she felt well until the episode from last week. She denies any miscarriages and has Three healthy children ages 20, 16 and 14. She denies any family history of autoimmune illness. She denies any symptoms of joint pain or significant skin rash, photosensitivity, mouth sores or Raymauds . On exam shes a fairly normal exam and I dont hear any murmurs or rubs. Musculoskeletal, neurological, respiratory and cardiac exam are fairly normal. She has a tattoo on her leg. She went to the ER on 08/02/20. CT in the ER showed a subacute left inferior occipital lobe infarct which marie elated with clinical findings of right face and upper extremity numbness and hemianopia of the right eye. The CT also showed a probable remote infarct at the head of the caudate on the right. CT angiogram of head and neck done the same day was essentially normal. Echocardiogram done on same day showed trace mitral regurg and trace tricuspid regurg otherwise normal. MRI of the brain same day shows similar changes as a CT and showed some frontal sinusitis. Upper extremity venous Doppler was positive for DVT/non-occlusive thrombus in Right jugular and medial subclavian vein. Bilateral lower extremity venous Doppler negative Transesophageal echo from 08/04/20 showed a mass attached to the tip of the anterior mitral valve leaflet measuring 1.1 cm of unclear etiology rule out veg etation with mild mitral regurge. CT of the mandible to look for possible infection was essentially negative for any significant dental disease CT abdomen pelvis 08/07/20 chronic hypoperfusion or infarcts upper pole and lower pole left kidney. Mild splenomegaly with no areas of infarct. Prominent lymph nodes throughout retroperitoneum and largest near renal vessel but all less than 1 cm. Grade 1 anterolisthesis L5 on S1 with mild to moderate disc space narrowing. Uterine fibroid and bilateral pelvic phleboliths, mild wall thickening in: Possible mild uncomplicated acute colitis. CT of the chest from 08/08/20 shows mild to moderate left base linear scarring/atelectasis, small mediastinal lymph nodes less than 1 cm, ??possible chronic thrombus in the left brachiocephalic artery. Mild splenomegaly. Labs reviewed showed a positive DARA, double-stranded DNA negative, CBC with differential fairly normal with some lymphopenia, sedimentation rate 6, urinalysis 4+ glucose, moderate leukocyte esterase, urine WBC 7 anticardiolipin antibodies and B2GP1 antibodies were negative Overall the patient really does not seem to have any active symptoms of a connective tissue disease like joint pain, photosensitivity, skin rash though her previous history of alopecia areata is suspicious. She does seem to have a hypercoagulable state and has had previous renal and splenic infarcts and currently has had a cerebrovascular accident and has a right jugular DVT as well. Blood cultures have been negative and so far this seems to be no evidence of infection and it seems that the left mitral valve process is not a vegetation. At this time I will do a complete connective tissue disease panel but with the current symptoms and a negative double-stranded DNA and a sedimentation rate being fairly normal I do feel Systemic lupus causing mitral valve Mass Is highly unlikely. SLE is very rarely associated with Nonbacterial thrombotic endocarditis( Also known as verrucousEndocarditis/marantic endocarditis/Libman-Sacks Endocarditis ), Advanced malignancy can also cause this type of endocarditis but she does not seem to have any evidence of that. Left atrial myxoma can also mimic mitral valve disease but this is unlikely as most patients do have systemic symptoms including weight loss, fever and the patient does not seem to have any evidence of this. Unlike other manifestations of SLE valvular lesions may not correlate with disease activity but they are usually associated with high levels of antiphospholipid antibodies which and this patient's case are surprisingly negative. On my literature review I do not see that IV steroids being helpful and treatment seems to only involve IV anticoagulation which the patient is already on and surgical intervention may play a role in patient's who do not have advanced malignancy. At this time I would hold off on any immunosuppressive therapy and continue IV anticoagulation and I'll see the patient in a few days to go over lab results. I will need to get her complete antibody panel results before starting any immunosuppressive therapy. Prognosis In these patients is generally poor. She may also be a good candidate to refer to a tertiary care center. Time with Patient: Greater than 30
[2020-08-08 16:37] LABS: Glucose,Whole Blood 141 mg/dL (75-99)
[2020-08-08] MEDS: HEPARIN SOD,PORK IN 0.45% NACL 25,000 UNIT in 0.45% NACL 1 250ML.BAG IV SCH ×2 (17:55→23:31)
[2020-08-08 20:09] LABS: Glucose,Whole Blood 165 mg/dL (75-99)
--- NOTE | 2020-08-08 21:47 | P.PN ---
Progress Note - Text Progress Note Date: 08/08/20 Chief Complaint: Right facial numbness History of presenting complaint: This is a pleasant 44-year-old patient of Dr. Bell. Chronic stable medical conditions include diabetes, hyperlipidemia, alopecia, anticardiolipin antibody positivity, thrombocytopenia. Patient presented to ER with right facial numbness present for about 3 days and some vision changes. He also felt some dizzy. Also felt the room is spinning around. Last her for about half an hour. The following 2 days she felt she was just not herself. Yesterday morning she noticed that the right side of face and tired of right upper extremity and the right side of her body was numb lasted for a couple of minutes also for a short time she could not see on the right side. Subsequently his symptoms are greatly improved with the meantime. Admitted with acute stroke in the left occipital lobe. Patient on Plavix Lipitor aspirin. found to have a DVT of the right jugular subclavian vein-IV heparin..AKHIL- massat the tip of the anterior mitral valve leaflet 1.1 cm. patient has no clinical infective symptoms. No fever no white count. IV heparin. Blood cultures negative. Today: Comfortable. No cardiopulmonary respiratory symptoms.. On IV heparin. and niece visiting. Late in the day seen by Dr. Wilder from rheumatology.-Does not feel as any active connective tissue disease at the the present time Review of systems: Was done for constitutional, cardiovascular, GI, pulmonary. relevant finding as above Active Medications Acetaminophen (Acetaminophen Tab 325 Mg Tab) 650 mg PO Q6HR PRN PRN Reason: Fever and/ or Pain Last Admin: 08/07/20 20:19 Dose: 650 mg Documented by: Alprazolam (Alprazolam 0.5 Mg Tab) 0.5 mg PO TID PRN PRN Reason: Anxiety Last Admin: 08/04/20 21:06 Dose: 0.5 mg Documented by: Alprazolam (Alprazolam 0.25 Mg Tab) 0.25 mg PO Q6HR PRN PRN Reason: Mild Anxiety Alprazolam (Alprazolam 0.5 Mg Tab) 0.5 mg PO Q6HR PRN PRN Reason: Moderate Anxiety Aspirin (Aspirin 81 Mg) 81 mg PO DAILY CLAIRE Last Admin: 08/08/20 09:28 Dose: 81 mg Documented by: Atorvastatin Calcium (Atorvastatin 80 Mg Tab) 80 mg PO DAILY [facility] Last Admin: 08/08/20 09:28 Dose: 80 mg Documented by: Heparin Sodium (Porcine) (Heparin Sodium 1,000 Un/Ml (10ml Vl)) 0 unit IV PER PROTOCOL PRN; Protocol PRN Reason: Low PTT Heparin Sodium (Porcine) (Heparin Sodium 1,000 Un/Ml (10ml Vl)) 0 unit IV PER PROTOCOL PRN; Protocol PRN Reason: Low PTT Heparin Sodium/Sodium Chloride (25,000 unit/ Sodium Chloride) 250 mls @ 9.984 mls/hr IV .Q24H [facility]; Protocol Last Admin: 08/08/20 17:55 Dose: 10 units/kg/hr, 8.32 mls/hr Documented by: Insulin Aspart (Insulin Aspart (Novolog) 100 Unit/Ml Vial) 0 unit SQ ACHS [facility]; Protocol Last Admin: 08/08/20 20:14 Dose: 1 unit Documented by: Mupirocin (Mupirocin 2% Oint 22 Gm Tube) 1 applic NASAL BID [facility] Stop: 08/10/20 09:01 Last Admin: 08/08/20 20:14 Dose: 1 applic Documented by: Nitroglycerin (Nitroglycerin Sl Tabs 0.4 Mg Tab) 0.4 mg SUBLINGUAL Q5M PRN PRN Reason: Chest Pain Jardiance ( Empagliflozin) 10 Mg Tablet 10 mg PO DAILY [facility] Last Admin: 08/08/20 09:28 Dose: 10 mg Documented by: Pantoprazole Sodium (Pantoprazole 40 Mg Tablet) 40 mg PO AC-BRKFST [facility] Last Admin: 08/08/20 06:30 Dose: 40 mg Documented by: Past medical history to include: Diabetes, hyperlipidemia, alopecia, anticardiolipin antibody positivity, throbbing 100 charlene Social history: with 2 children. Patient smoked for 25 years stopped in 2018. Alcohol occasionally. Occasional marijuana use. Physical examination: VITAL SIGNS: 98, 87, 16, 130/77, 96% room air GENERAL: sitting up in chair, comfortable. EYES: Pupils equal. Conjunctiva normal. HEENT: External appearance of nose and ears normal, oral cavity grossly normal. NECK: JVD not raised; masses not palpable. HEART: First and second heart sounds are normal; no edema. LUNGS: Respiratory rate normal; clear to auscultation. ABDOMEN: Soft, nontender, liver spleen not palpable, no masses palpable. PSYCH: Alert and oriented x3; mood and affect normal. INVESTIGATIONS, reviewed in the clinical context: Computed tomography scan chest with and without contrast: Nonspecific findings August 07: CT abdomen pelvis: Nonspecific findings August 06: WBC 5.1 hemoglobin 13 potassium 4.2 creatinine 0.46 Cardiac catheterization: Normal coronaries AKHIL: 1.1 cm mass on the anterior mitral valve leaflet August 04: WBC 5.2 hemoglobin 13.2 WBC 6.1 hemoglobin 13.8 platelets 213 potassium 4.0 creatinine 0.49 Troponin I less than 0.012 TSH 1.9 Antinuclear antibody: screen positive. Negative: Double-stranded DNA, anticardiolipin IgG antibody 2.1, cardiolipin IgG negative anticardiolipin IgM 16.8 Coronavirus [PCR] not detected EKG tracing personally reviewed by me-normal sinus rhythm, prolonged QT Computed tomography scan of the brain without contrast: Infarct involving the left inferior occipital lobe, remote infarct. CT angiogram head and neck: No significant abnormality seen 2-D echocardiogram: EF 55-60%. Bubble study unable to be done. Brain MRI shows restricted diffusion involving the region of the inferior left occipital lobe. Ultrasound Doppler upper extremity: Venous thromboses right upper extremity to include the jugular and subclavian vein. Assessment and plan: -Acute cardioembolic stroke in the left occipital lobe symptoms of right upper quadrant todd-anopsia. On aspirin, Lipitor, Plavix, -Acute DVT in the right jugular and subclavian vein. On IV heparin -1.1 cm mass on anterior mitral valve leaflet. Patient has no infective symptoms. Blood cultures are negative. 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 Diabetes mellitus type 2 Continue with jardiance. Follow Accu-Cheks -Hyperlipidemia Lipitor -Obesity BMI 33.8 Weight loss measures and follow-up with PCP -IV heparin monitoring -Cardiac catheterization showing normal coronaries -Nonalcoholic fatty liver disease Follow with GI in the office Rheumatology consultation noted. Continue current treatment plan. Follow with multiple consultants
[2020-08-09 05:56] LABS: Glucose,Whole Blood 123 mg/dL (75-99)
[2020-08-09] MEDS: INSULIN ASPART (NovoLOG) 100 UNIT/ML VIAL SQ SCH ×4 (06:15→20:48)
[2020-08-09] MEDS: PANTOPRAZOLE 40 MG TABLET PO SCH (06:39)
--- NOTE | 2020-08-09 08:36 | P.PN ---
Subjective Progress Note Date: 08/09/20 Principal diagnosis: Abnormal mitral valve on transesophageal echocardiogram. 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 Past medical history significant for diabetes mellitus type 2, anticardiolipin antibody positive which was diagnosed during her pregnancies, alopecia, hepatosplenomegaly, previous splenic infarct and more recent renal infarction, considered thrombosis or embolism on CT scan of her abdomen in December 2019, obesity, history of elevated AST and ALT, chronic ongoing tobacco dependence, occasional marijuana use, occasional EtOH use, GERD, family history of early onset coronary artery disease with her mother having an TX in her early 50s, and history of mild thrombocytopenia with platelet count of 120 to 139K/UL which is followed by Dr. Lobato from hematology in [facility]. The patient is seen in follow-up today 08/09/2020 at her bedside on the cardiac stepdown unit. She is currently laying in bed, is awake, alert and oriented 3. The patient continues to deny any complaints of shortness of breath, pain, dizziness or numbness. She does continue to complain about some peripheral vision disturbances to her right eye. Denies any further complaints of nausea. She remains hemodynamically stable and is currently on no inotropic or pressor support, remains afebrile in the last 24 hours. Room air oxygen saturations are 98% and she is achieving 2500 mL on her incentive spirometry. A computed tomogr aphy scan of her chest was completed yesterday 08/08/2020 which demonstrated no intracardiac filling defect or thrombus. Her blood cultures remained showing no growth after 72 and 96 hours. She remains on the heparin drip per protocol, aspirin 81 mg by mouth daily and Lipitor 80 mg by mouth daily. Cancer antigen 199, 125 and carcinoembryonic antigen was ordered yesterday. Remote telemetry showing normal sinus rhythm heart rate 73 BPM. Objective - Vital Signs Vital signs: Vital Signs Temp 97.9 F 08/09/20 04:00 Pulse 72 08/09/20 04:00 Resp 16 08/09/20 04:00 BP 101/51 08/09/20 04:00 Pulse Ox 95 08/09/20 04:00 Intake & Output 08/08/20 08/09/20 08/09/20 18:59 06:59 18:59 Intake Total 1085.44 446.592 Output Total 350 Balance 735.44 446.592 Weight 82.8 kg 82.8 kg Intake: Intake, IV Titration 245.44 46.592 Amount Heparin Sod,Pork in 0.45% 245.44 46.592 NaCl 25,000 unit In 0.45 % NaCl 1 250ml.bag @ 12 UNITS/KG/HR 9.984 mls/hr IV .Q24H [facility] Rx#: [id number] Oral 840 400 Output: Urine 350 Other: Voiding Method Toilet # Voids 3 2 - Constitutional General appearance: Present: cooperative, no acute distress, obese - EENT Eyes: Present: PERRLA, normal appearance. Absent: scleral icterus ENT: Present: hearing grossly normal - Neck Details: Neck is supple, no JVD, no lymphadenopathy. - Respiratory Details: Lung sounds essentially clear throughout. No wheezes, rhonchi or crackles. Respirations are symmetrical and nonlabored. Oxygen saturation are 98% on room air. Achieving 2500 mL on her incentive spirometry. - Cardiovascular Details: Regular rhythm and rate. S1 and S2 present, negative for S3, gallop or murmur. No edema present. - Gastrointestinal Gastrointestinal Comment(s): Abdomen is soft, nontender and nondistended. Active bowel sounds present all 4 abdominal quadrants. No guarding or rigidity. No organomegaly appreciated. - Genitourinary Genitourinary Comment(s): Continues to void. - Integumentary Integumentary Comment(s): Skin is warm and dry. No clubbing or cyanosis is present. - Neurologic Neurologic Comment(s): Peripheral vision disturbances to her right eye. - Musculoskeletal Musculoskeletal: Present: gait normal, strength equal bilaterally - Psychiatric Psychiatric: Present: A&O x's 3, appropriate affect, intact judgment & insight - Allied health notes Allied health notes reviewed: nursing - Labs CBC & Chem 7: 08/08/20 07:14 08/08/20 07:14 Labs: Abnormal Lab Results - Last 24 Hours (Table) 08/04/20 08/07/20 08/08/20 Range/Units 12:26 12:30 07:14 Lymphocytes # 0.3 L (1.0-4.8) k/uL APTT (22.0-30.0) sec Lupus Anticoag aPTT 90 H (<43) Sec(s) Lupus Anticoag PTT Mix 59 H (<43) Sec(s) Dil David Viper Venom 48 H (<44) Sec(s) Lupus Hexagonal Phase Positive A (Negative) Sodium (137-145) mmol/L POC Glucose (mg/dL) (75-99) mg/dL Urine Appearance (Clear) Urine Glucose (UA) (Negative) Urine Nitrite (Negative) Ur Leukocyte Esterase (Negative) Urine WBC (0-5) /hpf Amorphous Sediment (None) /hpf Urine Bacteria (None) /hpf DARA Screen POSITIVE A (NEGATIVE) 08/08/20 08/08/20 08/08/20 Range/Units 07:14 07:14 08:18 Lymphocytes # (1.0-4.8) k/uL APTT 60.9 H (22.0-30.0) sec Lupus Anticoag aPTT (<43) Sec(s) Lupus Anticoag PTT Mix (<43) Sec(s) Dil David Viper Venom (<44) Sec(s) Lupus Hexagonal Phase (Negative) Sodium 134 L (137-145) mmol/L POC Glucose (mg/dL) (75-99) mg/dL Urine Appearance Cloudy H (Clear) Urine Glucose (UA) 4+ H (Negative) Urine Nitrite Positive H (Negative) Ur Leukocyte Esterase Large H (Negative) Urine WBC 6 H (0-5) /hpf Amorphous Sediment Rare H (None) /hpf Urine Bacteria Rare H (None) /hpf DARA Screen (NEGATIVE) 08/08/20 08/08/20 08/08/20 Range/Units 11:34 16:31 20:07 Lymphocytes # (1.0-4.8) k/uL APTT (22.0-30.0) sec Lupus Anticoag aPTT (<43) Sec(s) Lupus Anticoag PTT Mix (<43) Sec(s) Dil David Viper Venom (<44) Sec(s) Lupus Hexagonal Phase (Negative) Sodium (137-145) mmol/L POC Glucose (mg/dL) 148 H 141 H 165 H (75-99) mg/dL Urine Appearance (Clear) Urine Glucose (UA) (Negative) Urine Nitrite (Negative) Ur Leukocyte Esterase (Negative) Urine WBC (0-5) /hpf Amorphous Sediment (None) /hpf Urine Bacteria (None) /hpf DARA Screen (NEGATIVE) 08/09/20 Range/Units 05:55 Lymphocytes # (1.0-4.8) k/uL APTT (22.0-30.0) sec Lupus Anticoag aPTT (<43) Sec(s) Lupus Anticoag PTT Mix (<43) Sec(s) Dil David Viper Venom (<44) Sec(s) Lupus Hexagonal Phase (Negative) Sodium (137-145) mmol/L POC Glucose (mg/dL) 123 H (75-99) mg/dL Urine Appearance (Clear) Urine Glucose (UA) (Negative) Urine Nitrite (Negative) Ur Leukocyte Esterase (Negative) Urine WBC (0-5) /hpf Amorphous Sediment (None) /hpf Urine Bacteria (None) /hpf DARA Screen (NEGATIVE) Microbiology - Last 24 Hours (Table) 08/05/20 14:11 Blood Culture - Preliminary Blood No Growth after 72 hours 08/05/20 14:11 Blood Culture - Preliminary Blood No Growth after 72 hours 08/04/20 09:24 Blood Culture - Preliminary Blood No Growth after 96 hours - Imaging and Cardiology CT scan - chest: report reviewed Assessment and Plan Assessment: 1. Subacute ischemic stroke 2. 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 Diabetes mellitus type 2 4. Anticardiolipin antibody positive, diagnosed 20 years ago while , and anticardiolipin antibody negative this admission 5. Acute DVT in the right jugular and subclavian vein 6. History of hepatosplenomegaly 7. History of splenic infarct 8. History of left renal infarct 9. History of elevated liver enzymes 10. History of thrombocytopenia followed by Dr. Mendiola from hematology on an outpatient basis 11. Obesity 12. Chronic ongoing tobacco dependence 13. Occasional marijuana use 14. Occasional EtOH use 15. Family history of early onset coronary artery disease with her mom having a myocardial infarction in her 50s 16. GERD Plan: 1. Continue to optimize medical management, low-dose aspirin, statin, heparin drip per protocol. 2. Preoperative teaching reinforced with patient at her bedside. 3. Dr. Wilder's consult noted and appreciated. 4. Blood culture results are negative for any growth after 72 and 96 hours. 5. Encourage use of her incentive spirometry 10 times every hour while awake. Bedside FEV1 was completed on 08/06/2020 which showed a predicted value of 75%. 6. Medical management and other comorbidities per primary care service. 7. Importance of risk modification discussed and reinforced with the patient, including smoking cessation. 8. A computed tomography scan of the chest was completed yesterday 08/08/2020 and the report was reviewed by Dr. Ji Lui. 9. Continue to optimize medical management with low-dose aspirin, statin, heparin drip per protocol. 10. CA 199, CEA 125 and a carcinoembryonic antigen markers pending. 11. 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 In the absence of valvular dysfunction at this point surgery is not indicated, although if in the future if recurrence of embolic event while on lifelong adequate anticoagulation treatment should occur, surgery may be indicated. Follow-up 2-D echocardiogram in 4-[address] Fernandez for right ovary 3.9 x 3.2 simple appearing thin- walled cyst or cystic lesion on her CT of her abdomen, consult per Dr Vallejo. 13. More recommendations to follow based on patient's clinical course. Time with Patient: Greater than 30
--- NOTE | 2020-08-09 08:43 | P.PN ---
Subjective Progress Note Date: 08/08/20 Patient was seen for a follow-up. Patient initially seen by Dr. Roberto Ludwig. Please refer to his note for details. Patient came to the hospital for strokelike symptoms off and on for last 1 week. Patient states that on 07/30/2020 she was not feeling well. She had an episode of dizziness and double vision with the headache, that lasted for a few minutes. She laid down for half an hour to 45 minutes, and it improved. On Saturday, she felt like a hangover feeling, mentally sluggish, like in a fog, forgetful. On Saturday, she went to work felt dizzy with the headache. 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 Did not involve the leg. It lasted for a minute but she got concerned and decided to come to the ER, and arrived on 08/02/2020. CT head showed findings consistent with infarct involving the left inferior occipital lobes. Probable remote infarct head of the caudate on the right. Patient at present states she is feeling better. Patient has history of diabetes for 5 years, denies hypertension. She smoked 1 pack per week for 20 years, cutback to 2-3 cigarettes per week in the last 5 years. Patient has history of splenic infarct and a renal infarct but did not follow through with the workup. Patient not on blood thinners at home. Telemetry monitoring showing sinus rhythm. No arrhythmia. Objective - Vital Signs Vital signs: Vital Signs Temp 98.0 F 08/08/20 08:00 Pulse 85 08/08/20 16:00 Resp 16 08/08/20 04:00 BP 100/62 08/08/20 16:00 Pulse Ox 96 08/08/20 16:00 Intake & Output 08/08/20 08/08/20 08/09/20 06:59 18:59 06:59 Intake Total 780 1085.44 Output Total 350 Balance 780 735.44 Weight 82.8 kg 82.8 kg Intake: IV 160 0.9 160 Intake, IV Titration 245.44 Amount Heparin Sod,Pork in 0.45% 245.44 NaCl 25,000 unit In 0.45 % NaCl 1 250ml.bag @ 12 UNITS/KG/HR 9.984 mls/hr IV .Q24H [facility] Rx#: [id number] Oral 620 840 Output: Urine 350 Other: Voiding Method Toilet # Voids 4 3 - Exam Patient is a middle aged female, very pleasant, in no acute distress. Patient is alert awake oriented to time place and person. Speech and language functions are normal. Attention, concentration and fund of knowledge is hemal quate. On cranial examination, pupils are round and reacting to light, visual torres revealed slight restriction over the very right upper peripheral visual field, extraocular muscles are intact with no nystagmus. Face is symmetric, tongue protrudes to the midline. Palatal elevation and sensation normal, hearing and shoulder shrug normal, facial sensation normal. Shoulder shrug normal. On muscle strength testing, there is no pronator drift and the strength is normal in arms and legs distally and proximally. Deep tendon reflexes are 2+, symmetric, plantars downgoing Sensory to touch is equal with no neglect. Cerebellar function showed no ataxia for [id number] testing. No dysdiado chokinesia. Tone and bulk of muscles normal. Gait normal. On general examination, there is no carotid bruit or murmur, S1-S2 audible. Abdomen is soft nontender. Chest is clear. Peripheral pulses are present. No edema. - Labs CBC & Chem 7: 08/08/20 07:14 08/08/20 07:14 Labs: Abnormal Lab Results - Last 24 Hours (Table) 08/04/20 08/07/20 08/08/20 Range/Units 12:26 12:30 06:05 Lymphocytes # (1.0-4.8) k/uL APTT (22.0-30.0) sec Lupus Anticoag aPTT 90 H (<43) Sec(s) Lupus Anticoag PTT Mix 59 H (<43) Sec(s) Dil David Viper Venom 48 H (<44) Sec(s) Lupus Hexagonal Phase Positive A (Negative) Sodium (137-145) mmol/L POC Glucose (mg/dL) 104 H (75-99) mg/dL Urine Appearance (Clear) Urine Glucose (UA) (Negative) Urine Nitrite (Negative) Ur Leukocyte Esterase (Negative) Urine WBC (0-5) /hpf Amorphous Sediment (None) /hpf Urine Bacteria (None) /hpf DARA Screen POSITIVE A (NEGATIVE) 08/08/20 08/08/20 08/08/20 Range/Units 07:14 07:14 07:14 Lymphocytes # 0.3 L (1.0-4.8) k/uL APTT 60.9 H (22.0-30.0) sec Lupus Anticoag aPTT (<43) Sec(s) Lupus Anticoag PTT Mix (<43) Sec(s) Dil David Viper Venom (<44) Sec(s) Lupus Hexagonal Phase (Negative) Sodium 134 L (137-145) mmol/L POC Glucose (mg/dL) (75-99) mg/dL Urine Appearance (Clear) Urine Glucose (UA) (Negative) Urine Nitrite (Negative) Ur Leukocyte Esterase (Negative) Urine WBC (0-5) /hpf Amorphous Sediment (None) /hpf Urine Bacteria (None) /hpf DARA Screen (NEGATIVE) 08/08/20 08/08/20 08/08/20 Range/Units 08:18 11:34 16:31 Lymphocytes # (1.0-4.8) k/uL APTT (22.0-30.0) sec Lupus Anticoag aPTT (<43) Sec(s) Lupus Anticoag PTT Mix (<43) Sec(s) Dil David Viper Venom (<44) Sec(s) Lupus Hexagonal Phase (Negative) Sodium (137-145) mmol/L POC Glucose (mg/dL) 148 H 141 H (75-99) mg/dL Urine Appearance Cloudy H (Clear) Urine Glucose (UA) 4+ H (Negative) Urine Nitrite Positive H (Negative) Ur Leukocyte Esterase Large H (Negative) Urine WBC 6 H (0-5) /hpf Amorphous Sediment Rare H (None) /hpf Urine Bacteria Rare H (None) /hpf DARA Screen (NEGATIVE) 08/08/20 Range/Units 20:07 Lymphocytes # (1.0-4.8) k/uL APTT (22.0-30.0) sec Lupus Anticoag aPTT (<43) Sec(s) Lupus Anticoag PTT Mix (<43) Sec(s) Dil David Viper Venom (<44) Sec(s) Lupus Hexagonal Phase (Negative) Sodium (137-145) mmol/L POC Glucose (mg/dL) 165 H (75-99) mg/dL Urine Appearance (Clear) Urine Glucose (UA) (Negative) Urine Nitrite (Negative) Ur Leukocyte Esterase (Negative) Urine WBC (0-5) /hpf Amorphous Sediment (None) /hpf Urine Bacteria (None) /hpf DARA Screen (NEGATIVE) Microbiology - Last 24 Hours (Table) 08/05/20 14:11 Blood Culture - Preliminary Blood No Growth after 72 hours 08/05/20 14:11 Blood Culture - Preliminary Blood No Growth after 72 hours 08/04/20 09:24 Blood Culture - Preliminary Blood No Growth after 96 hours Assessment and Plan Assessment: Subacute ischemic stroke (left occipital lobe with extension towards the posterior thalamus) with symptoms of right upper quadrant hemianposia). 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 Positive anti-cardiolipin antibodies (diagnosed 20 years-ago while and per hematology team that is considered normal) Diabetes mellitus History of splenic infarct but did not follow-up regarding further work-up History of left renal infarct but did not follow-up regarding further work-up Social Tobacco use Plan: * Patient has DVT, currently on aspirin and heparin IV. Continue Lipitor 80 mg daily for secondary stroke prophylaxis. * MRI the brain is reported as subacute infarct over the left occipital lobe with extension towards the posterior thalamus. There is also minimal additional scattered hyperintensity present within the deep white matter which seems chronic upon reviewing it. * 2-D echo was reported as overall left ventricle systolic function is normal with ejection fraction between 55-60%. Bubble study was done but it was limited because unable to rule out due to poor image quality. Left atrial size is normal. Normal left atrial size by volume. * Transesophageal echocardiograms on 08/04/2020: Is reported as normal left ventricular size and systolic function. Normal appearance of left atrial appendage. No evidence of shunting. Mass attached the tip of the anterior mitral valve leaflet measuring 1.1 cm of unclear etiology, rule out vegetation, with mitral regurgitation. Trace tricuspid regurgitation. * CT of the mandible was normal, no evidence of any significant dental disease. * Blood culture are no growth. * Nasal screen MRSA/MSSA: Negative. * Venous thrombus right upper extremity ultrasound (include jugular and subclavian). No DVT of lower extremities. Patient started on heparin. PTT 60.9 * Lipid panel: Triglyceride 189, cholesterol is 150, LDL 73, HDL 39. LDL goal in stroke is <70. * TSH: 1.93 (normal). * Telemetry monitoring showing sinus rhythm, with no A. fib * Hypercoagulable work-up: Homocysteine level is 6.21 which is normal. DARA screen is positive but the double-stranded DNA is negative. Anti-cardiolipin IgG/IGA/IgM antibody are normal and reported as negative. * Antithrombin II antigen 100% (normal), Protein S antigen 89% (normal). antistreptolysin O antibody (ASO) 25 (normal). Beta 2 glycopreint1 are negative. antithrombin III antibody (normal). antithrombin III activity 109 (normal 79-109). protein C and protein S antigen antibody (both are normal). von Willebrand factor 170 (normal). Lupus anticoagulant present. * Factor V Leiden negative. Still pending are MTHFR genotype, Factor 7 and 8 antibody (send out test). * Event monitor. * Physical therapy, occupational therapy. * CTA of the chest showed no PE. * Rheumatology input appreciated. Recommended to continue anticoagulation, no indication for immune suppressive medications at this time, possible removal of valvular mass by cardiothoracic surgery. * Await cardiothoracic consultation. Time with Patient: Greater than 30 (Including review of records)
[2020-08-09] MEDS: ASPIRIN 81 MG PO SCH (09:31)
[2020-08-09] MEDS: MUPIROCIN 2% OINT 22 GM TUBE NASAL SCH ×2 (09:31→20:48)
[2020-08-09] MEDS: ATORVASTATIN 80 MG TAB PO SCH (09:31)
[2020-08-09 11:34] LABS: Glucose,Whole Blood 96 mg/dL (75-99)
--- NOTE | 2020-08-09 13:54 | P.PN ---
Subjective From records: This is a pleasant 44-year-old patient of Dr. Bell. Chronic stable medical conditions include diabetes, hyperlipidemia, alopecia, anticardiolipin antibody positivity, thrombocytopenia. Patient presented to ER with right facial numbn ess present for about 3 days and some vision changes. He also felt some dizzy. Also felt the room is spinning around. Last her for about half an hour. The following 2 days she felt she was just not herself. Yesterday morning she noticed that the right side of face and tired of right upper extremity and the right side of her body was numb lasted for a couple of minutes also for a short time she could not see on the right side. Subsequently his symptoms are greatly improved with the meantime. Admitted with acute stroke in the left occipital lobe. Patient on Plavix Lipitor aspirin. found to have a DVT of the right jugular subclavian vein-IV heparin..AKHIL- massat the tip of the anterior mitral valve leaflet 1.1 cm. patient has no clinical infective symptoms. No fever no white count. IV heparin. Blood cultures negative. Today: Comfortable. No cardiopulmonary respiratory symptoms.. On IV heparin. and niece visiting. Late in the day seen by Dr. Wilder from rheumatology.-Does not feel as any active connective tissue disease at the the present time Subjective: 08/09/2020 This is a pleasant 44 years old female who presents with numbness and dizziness related to her acute/subacute left occipital lobe infarct/CVA. Also patient found to have DVT with right check Doppler and medial subclavian thrombosis started on heparin drip. Echocardiogram showed 1.1 mass at the anterior mitral valve leaflet per AKHIL on 08/04. Also she has history of spleen and left renal infarct. Also patient has history of anticardiolipin antibody and history of splenic and left renal infarction. Patient today's walking in the room comfortably, she denies any symptoms, she denies dizziness or numbness. She still have persistent loss of vision in the right upper visual field. No dilatation or double vision, no worsening. Fitter Placer and cardiothoracic surgery team or following the case closely. Today I discussed the case with order filler Dr. Diaz which discussed the case himself with cardiothoracic surgery team, no surgical intervention currently by their team and continue with anticoagulation and follow-up as an outpatient. Coumadine is recommended by Dr. Diaz. Start Lovenox instead of a printed for bridging, pillowcase cutter consult to find the co-pay Today I had lengthy discussion with the patient including risks of anticoagulation including but not limited to intracranial hemorrhage and stroke like symptoms and she verbalized understanding and acceptance to continue with anticoagulation as benefits more than risks. Several consultants on the case including cardiology, cardiothoracic surgery, neurology, rheumatology and hematology/oncology. ID team recommended no need for antibiotic and culture has been negative. FILM PROCESS OPERATOR team were consulted for ovarian cyst. Per record pressman facility is unlikely especially with negative antibody double-stranded DNA and normal ESR with no overt signs and symptoms like joint pain or skin rash. However patient has positive lupus anticoagulant. Objective - Vital Signs Vital signs: Vital Signs Temp 98.1 F 08/09/20 08:00 Pulse 81 08/09/20 08:00 Resp 16 08/09/20 04:00 BP 115/77 08/09/20 08:00 Pulse Ox 96 08/09/20 08:00 Intake & Output 08/08/20 08/09/20 08/09/20 18:59 06:59 18:59 Intake Total 1085.44 446.592 240 Output Total 350 Balance 735.44 446.592 240 Weight 82.8 kg 82.8 kg Intake: Intake, IV Titration 245.44 46.592 Amount Heparin Sod,Pork in 0.45% 245.44 46.592 NaCl 25,000 unit In 0.45 % NaCl 1 250ml.bag @ 12 UNITS/KG/HR 9.984 mls/hr IV .Q24H [facility] Rx#: [id number] Oral 840 400 240 Output: Urine 350 Other: Voiding Method Toilet # Voids 3 2 1 - Exam GENERAL: The patient is alert and oriented x3, not in any acute distress. Well developed, well nourished. HEENT: Pupils are round and equally reacting to light. EOMI. No scleral icterus. No conjunctival pallor. Normocephalic, atraumatic. No pharyngeal erythema. No thyromegaly. CARDIOVASCULAR: S1 and S2 present. No murmurs, rubs, or gallops. PULMONARY: Chest is clear to auscultation, no wheezing or crackles. ABDOMEN: Soft, nontender, nondistended, normoactive bowel sounds. No palpable organomegaly. MUSCULOSKELETAL: No joint swelling or deformity. EXTREMITIES: No cyanosis, clubbing, or pedal edema. NEUROLOGICAL: Gross neurological examination did not reveal any focal deficits. SKIN: No rashes. no petechiae. - Labs CBC & Chem 7: 08/08/20 07:14 08/08/20 07:14 Labs: Abnormal Lab Results - Last 24 Hours (Table) 08/04/20 08/08/20 08/08/20 Range/Units 12:26 16:31 20:07 Lupus Anticoag aPTT 90 H (<43) Sec(s) Lupus Anticoag PTT Mix 59 H (<43) Sec(s) Dil David Viper Venom 48 H (<44) Sec(s) Lupus Hexagonal Phase Positive A (Negative) POC Glucose (mg/dL) 141 H 165 H (75-99) mg/dL 08/09/20 Range/Units 05:55 Lupus Anticoag aPTT (<43) Sec(s) Lupus Anticoag PTT Mix (<43) Sec(s) Dil David Viper Venom (<44) Sec(s) Lupus Hexagonal Phase (Negative) POC Glucose (mg/dL) 123 H (75-99) mg/dL Microbiology - Last 24 Hours (Table) 08/04/20 09:24 Blood Culture - Preliminary Blood No Growth after 120 hours 08/05/20 14:11 Blood Culture - Preliminary Blood No Growth after 72 hours 08/05/20 14:11 Blood Culture - Preliminary Blood No Growth after 72 hours Assessment and Plan Assessment: -Acute cardioembolic stroke in the left occipital lobe symptoms of right upper quadrant todd-anopsia. -Acute DVT in the right jugular and subclavian vein. -1.1 cm mass on anterior mitral valve leaflet. 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 -Detes mellitus type 2 -Hyperlipidemia -Obesity BMI 33.8 -nonalcoholic fatty liver disease Plan: This is a pleasant 44 years old female who presents with left CVA and mitral valve mass. Patient is followed by cardiology and cardiothoracic surgery who recommended no surgical intervention and to continue with anticoagulation as an outpatient with close follow-up, patient informed and she agrees. The risks and benefits of anticoagulation explained extensively to the patient and she agrees with it. Several consultants on the case including rheumatology, neurology, FILM PROCESS OPERATOR, lindsey tology and oncology Labs and medication were reviewed.. Continue same treatment. Continue with sym ptomatic treatment. Resume home medication. Monitor lytes and vitals. DVT and GI prophylaxis. Further recommendationsas per clinical course of the patient DVT prophylaxis: Subcutaneous Lovenox GI Prophylaxis: Pepcid Prognosis is guarded
--- NOTE | 2020-08-09 14:09 | P.PN ---
Subjective This is a pleasant 44-year-old female past medical history significant for diabetes mellitus, hypertension, former nicotine dependence, Anticardiolipin antibody positive during (took aspirin during all 3 pregnancies), Splenic and renal infarct March 2020 She denies prior history of coronary artery disease and does not follow in the office with a wash test checker. We have been asked to see in consultation for AKHIL. She presented to the hospital with symptoms of feeling dizzy, lightheaded, right-sided numbness and peripheral vision changes on the right. While at work she continued to feel lightheaded and had an acute onset of right-sided numbness that went from her waist all the way up to her head. Diagnostic testing indicates she had a left inferior also pedal lobe infarct. 08/02/20 Echocardiogram obtained revealed preserved LV systolic function with ejection fraction 55-60% however they were unable to comment on the possibility of a shunt due to poor image quality. Venous dopplers bilateral upper and lower extremities on 08/03- which revealed non-occlusive RUE DVT within right jugular, medial subclavian vein. She underwent AKHIL on 08/04/20 which revealed evidence of a 1.1cm mass on the tip of the anterior mitral valve leaflets of unclear etiology. She underwent cardiac catheterization on 08/05/20 which revealed no evidence of obstructive coronary disease. 08/09/20: Patient seen and examined at bedside, doing well, anxious about going home. She denies chest pain, shortness of breath, palpitations, nausea, or abdominal pain. She is currently being maintained on heparin drip, aspirin 81mg daily, atorvastatin 80my daily. Telemetry tracings - patient in sinus mechanism HR 70- 80s. CT chest yesterday no intracardiac filling defect or thrombus. Labs reviewed, positive DARA, double strand DNA Ab negative, Blood cultures negative growth to date. PHYSICAL EXAMINATION Blood pressure 115/77 heart rate 81, she has been afebrile and maintaining oxygen saturation 96% on room air. CONSTITUTIONAL: No apparent distress. HEENT: Head is normocephalic. No JVD. No carotid bruit. CHEST EXAMINATION: Lungs are clear to auscultation. No chest wall tenderness is noted on palpation or with deep breathing. HEART EXAMINATION: Regular rate and rhythm. S1, S2 heard. No murmurs, gallops or rub. ABDOMEN: Soft, nontender. Positive bowel sounds. EXTREMITIES: 2+ peripheral pulses, no lower extremity edema and no calf tend erness. NEUROLOGIC EXAMINATION: Patient is awake, alert and oriented x3. ASSESSMENT Acute left occipital lobe infarct, thought to be embolic in nature per neurology. Mass tip of the anterior loli valve leaflet measuring 1.1cm - unclear etiology History of multiple embolic phenomenon Deep Vein Thrombosis-right jugular, medial subclavian vein- on heparin drip Hypertension History of positive anti-cardiolipin antibodies during previous pregnancies History of splenic infarct History of left renal infarct Type 2 Diabetes mellitus Former Nicotine Dependence PLAN Rheumatology following, at this time don't believe patient has any active symptoms of connective tissue disease and that systemic lupus causing mitral valve mass is highly unlikely. Rheum recommends holding off on any immunosup pressive therapy. Blood cultures have been negative growth to date Discussed with patient her current workup, management options and recommendations regarding management of mass on mitral valve. Cardiothoracic surgery is also following patient regarding surgical intervention and patient's case was discussed with CT surgery team. Work-up at this time is learning towards nonbacterial thrombotic endocarditis. Treatment at this point we would agree with anticoagulation with Coumadin with a goal INR for 2.5-3. Repeat Echocardiogram within 4-[address] surgery, at this point, in t he absence of valvular dysfunction we can hold on surgery at this time. However, if in the future the patient has another embolic event while on lifelong adequate anticoagulation treatment, surgery may be re-evaluated. Patient also has options of getting second opinions and referrals to a tertiary care center if she chooses to. Patient can follow up in the outpatient office with Dr. Arias Nurse Practitioner note has been reviewed, I agree with a documented findings and plan of care. Patient was seen and examined. Objective - Vital Signs Vital signs: Vital Signs Temp 98.1 F 08/09/20 08:00 Pulse 81 08/09/20 08:00 Resp 16 08/09/20 04:00 BP 115/77 08/09/20 08:00 Pulse Ox 96 08/09/20 08:00 Intake & Output 08/08/20 08/09/20 08/09/20 18:59 06:59 18:59 Intake Total 1085.44 446.592 240 Output Total 350 Balance 735.44 446.592 240 Weight 82.8 kg 82.8 kg Intake: Intake, IV Titration 245.44 46.592 Amount Heparin Sod,Pork in 0.45% 245.44 46.592 NaCl 25,000 unit In 0.45 % NaCl 1 250ml.bag @ 12 UNITS/KG/HR 9.984 mls/hr IV .Q24H [facility] Rx#: [id number] Oral 840 400 240 Output: Urine 350 Other: Voiding Method Toilet # Voids 3 2 1 - Labs CBC & Chem 7: 08/08/20 07:14 08/08/20 07:14 Labs: Abnormal Lab Results - Last 24 Hours (Table) 08/04/20 08/08/20 08/08/20 Range/Units 12:26 16:31 20:07 Lupus Anticoag aPTT 90 H (<43) Sec(s) Lupus Anticoag PTT Mix 59 H (<43) Sec(s) Dil David Viper Venom 48 H (<44) Sec(s) Lupus Hexagonal Phase Positive A (Negative) POC Glucose (mg/dL) 141 H 165 H (75-99) mg/dL 08/09/20 Range/Units 05:55 Lupus Anticoag aPTT (<43) Sec(s) Lupus Anticoag PTT Mix (<43) Sec(s) Dil David Viper Venom (<44) Sec(s) Lupus Hexagonal Phase (Negative) POC Glucose (mg/dL) 123 H (75-99) mg/dL Microbiology - Last 24 Hours (Table) 08/04/20 09:24 Blood Culture - Preliminary Blood No Growth after 120 hours 08/05/20 14:11 Blood Culture - Preliminary Blood No Growth after 72 hours 08/05/20 14:11 Blood Culture - Preliminary Blood No Growth after 72 hours
--- NOTE | 2020-08-09 14:18 | P.PN ---
Subjective Progress Note Date: 08/09/20 Principal diagnosis: Hx anticardiolopin ab positive during preg, presenting with TIA Dr. Mccann seen and examined patient this am. Plan is to discharge on Lovenox and plan for lifelong anticoagulation. At this time attempts are being made for tertiary hospital input. Objective - Vital Signs Vital signs: Vital Signs Temp 98.1 F 08/09/20 08:00 Pulse 81 08/09/20 08:00 Resp 16 08/09/20 04:00 BP 115/77 08/09/20 08:00 Pulse Ox 96 08/09/20 08:00 Intake & Output 08/08/20 08/09/20 08/09/20 18:59 06:59 18:59 Intake Total 1085.44 446.592 480 Output Total 350 Balance 735.44 446.592 480 Weight 82.8 kg 82.8 kg Intake: Intake, IV Titration 245.44 46.592 Amount Heparin Sod,Pork in 0.45% 245.44 46.592 NaCl 25,000 unit In 0.45 % NaCl 1 250ml.bag @ 12 UNITS/KG/HR 9.984 mls/hr IV .Q24H [facility] Rx#: [id number] Oral 840 400 480 Output: Urine 350 Other: Voiding Method Toilet # Voids 3 2 1 - Exam - Constitutional Constitutional Comment(s): Moonface appearance General appearance: Present: average body habitus, cooperative, no acute distress - EENT Eyes: Present: anicteric sclerae, EOMI ENT: Present: hearing grossly normal -HEART RRR - Respiratory Respiratory: bilateral: CTA - Peripheral edema leg Peripheral Edema: bilateral: None - Gastrointestinal General gastrointestinal: Present: normal bowel sounds, soft - Psychiatric Psychiatric: Present: A&O x's 3, appropriate affect, intact judgment & insight - Labs CBC & Chem 7: 08/08/20 07:14 08/08/20 07:14 Labs: Abnormal Lab Results - Last 24 Hours (Table) 08/04/20 08/08/20 08/08/20 Range/Units 12:26 16:31 20:07 Lupus Anticoag aPTT 90 H (<43) Sec(s) Lupus Anticoag PTT Mix 59 H (<43) Sec(s) Dil David Viper Venom 48 H (<44) Sec(s) Lupus Hexagonal Phase Positive A (Negative) POC Glucose (mg/dL) 141 H 165 H (75-99) mg/dL 08/09/20 Range/Units 05:55 Lupus Anticoag aPTT (<43) Sec(s) Lupus Anticoag PTT Mix (<43) Sec(s) Dil David Viper Venom (<44) Sec(s) Lupus Hexagonal Phase (Negative) POC Glucose (mg/dL) 123 H (75-99) mg/dL Microbiology - Last 24 Hours (Table) 08/04/20 09:24 Blood Culture - Preliminary Blood No Growth after 120 hours 08/05/20 14:11 Blood Culture - Preliminary Blood No Growth after 72 hours 08/05/20 14:11 Blood Culture - Preliminary Blood No Growth after 72 hours Assessment and Plan Plan: - Imaging and Cardiology MRI - head: report reviewed Assessment and Plan Recurrent Thrombolic Events: - Positive Anticardiolipin Antibody - Positive during . - Pt took asa during her 3 pregnancies. - Anticardiolipin antibodies can be present during .Negative at this time - Testing was done here, showing patient is not positive for any antibodies. - Would recommend testing for anticardiolipin antibodies one more time to ensure they are not present before being able to say, with certainty, that patient does not have antibodies. Agree with Neurology plan for treatment of acute TIA. DARA positive Further work-up per rheumatology note reviewed and discussed with the same Lupus Anticoagulant remains pending CVA (cerebral vascular accident)/TIA's - Rt jugular and medial subclavian thrombosis, all other extremities neg for DVT. - Heparin drip continued - Beta glycoprotein and anticardolipin antibodies negative - Lupus anticoagulant from this admission pending Pending lupus anticoagulant-if positive, in conjunction with stroke and now DVT, recommendation will be for lifelong anticoagulation with coumadin. If negative then other plans anticoagulation may be more appropriate. - She will follow up with Dr. Mendiola on DC for further plans. Rheumatology following while inpatient. - Plan to continue Lovenox at discharge in the interim until decision on surgical intervention, defer this decision to [facility]. Rec for [facility] input. Discuassed with case management transfer Physicain Attest: I have completed the full history and physical and agree with above dictation, dictated as a scribe
[2020-08-09 14:19] LABS: C-ANCA <1:20 Titer (<1:20)
--- NOTE | 2020-08-09 16:05 | US ---
EXAMINATION TYPE: US pelvic complete DATE OF EXAM: 08/09/2020 COMPARISON: CT dated 08/07/2020 CLINICAL HISTORY: Evaluate ovarian cyst noted on CT., Abnormal CT. Inpatient for TIA; endometrial abl ation, ; patient denies pelvic pain. TECHNIQUE: TA US. Transabdominal sonographic images of the pelvis were acquired. Date of LMP: First week of July EXAM MEASUREMENTS: Uterus: 9.9 x 7.0 x 5.0 cm Endometrial Stripe: 1.1 cm Right Ovary: 5.2 x 3.1 x 2.8 cm Left Ovary: 2.7 x 2.4 x 2.2 cm 1. Uterus: Anteverted Possible isoechoic, nondiscrete round mass left upper myometrial periphery = 2.0 x 1.5 x 2.0cm as noted on CT here. 2. Endometrium: post endometrial ablation; thickness is wnl for approximately day 21 LMP. 3. Right Ovary:enlarged with ovarian cyst seen = 2.4 x 2.0 x 1.9cm 4. Left Ovary: small follicle = left ovarian cyst noted = 2.4 x 2.1 x 1.5cm Color flow is noted in bilateral ovary. 5. Bilateral Adnexa: wnl 6. Posterior cul-de-sac: wnl IMPRESSION: Possible fibroid uterus, endovaginal scanning was not performed. Probable ovarian cysts.
[2020-08-09 16:35] LABS: Glucose,Whole Blood 150 mg/dL (75-99)
[2020-08-09] MEDS ORDERED: WARFARIN 5 MG TAB PO SCH (18:00)
[2020-08-09 19:56] LABS: Glucose,Whole Blood 118 mg/dL (75-99)
[2020-08-09] MEDS: ENOXAPARIN 80 MG/0.8 ML SYRINGE SQ SCH (20:48)
[2020-08-10 05:08] VITALS: RESP 18
[2020-08-10 06:04] LABS: Glucose,Whole Blood 126 mg/dL (75-99)
[2020-08-10] MEDS: PANTOPRAZOLE 40 MG TABLET PO SCH (06:58)
[2020-08-10] MEDS: INSULIN ASPART (NovoLOG) 100 UNIT/ML VIAL SQ SCH ×2 (06:58→12:14)
[2020-08-10 08:29] LABS: INR 1.1 (<1.2); Prothrombin Time 11.9 sec (9.0-12.0)
--- NOTE | 2020-08-10 08:36 | P.OBCN ---
History of Present Illness Consult date: 08/10/20 Reason for consult: ovarian cyst Chief complaint: Cerebrovascular accident, incidental finding of ovarian cyst History of present illness: There is a 44-year-old 3 para 3003 who, as documented and all the previous notes, is in the hospital for ongoing symptoms consistent with a stroke which was confirmed upon admission. She has had continued ongoing treatment for this. She is additionally found to have some cardiac issues with one of her bowels which are being followed by cardiology. During her admission, she underwent a computed tomography scan of the abdomen and pelvis which demonstrated a possible 3 cm ovarian cyst. Consultation was sought to ensure that the cyst is benign in nature. The patient also reports a history of regular gynecologic care with Dr. Vanessa and is scheduled to see her in the near future for routine gynecology. She has a tubal ligation in place and has undergone endometrial ablation though she does continue to have menses though significantly liquor clerk than they had been in the past. She has no current ongoing gynecologic concerns. Pelvic ultrasound performed here yesterday demonstrates bilateral ovarian cysts less than 3 cm and both simple in nature. Obstetrical history: 3 para 3003 with 3 term vaginal deliveries without complications. Method of contraception is tubal ligation. Gynecologic history: Unremarkable with no history of any infections and regular gynecologic care locally with a history of normal Pap smears and no other findings. She did undergo endometrial ablation as noted above for menorrhagia. She continues to have cycles regularly though they're significantly improved from previous. Review of Systems Review of systems is confined to history of present illness. Past Medical History Past Medical History: Diabetes Mellitus, GERD/Reflux, Hyperlipidemia Additional Past Medical History / Comment(s): takes lisinopril due to diabetes, not high BP; alopecia, anticardiolipin antibody positive, thrombocytopenia, history of elevated liver enzymes, hepatosplenomegaly, splenic infarct and left renal infarct. History of Any Multi-Drug Resistant Organisms: None Reported Past Surgical History: Tubal Ligation Additional Past Surgical History / Comment(s): COLONOSCOPY x2, history of bone marrow biopsy in 2017 Past Anesthesia/Blood Transfusion Reactions: No Reported Reaction Past Psychological History: No Psychological Hx Reported Smoking Status: Current some day smoker Past Alcohol Use History: Occasional Past Drug Use History: Marijuana - Past Family History Mother Family Medical History: No Reported History Additional Family Medical History / Comment(s): Mother had a ND in her 50s. Father History Unknown: Yes Medications and Allergies Home Medications Medication Instructions Recorded Confirmed Type Empagliflozin [Jardiance] 10 mg PO DAILY 08/02/20 08/02/20 History Omeprazole 20 mg PO DAILY 08/02/20 08/02/20 History lisinopriL [Zestril] 5 mg PO DAILY 08/02/20 08/02/20 History Enoxaparin [Lovenox] 80 mg SQ Q12HR #60 syringe 08/09/20 Rx Allergies Allergy/AdvReac Type Severity Reaction Status Date / Time No Known Allergies Allergy Verified 08/02/20 07:49 Exam Vital Signs Temp Pulse Resp BP Pulse Ox 08/10/20 04:00 75 18 112/66 95 08/10/20 02:00 72 16 08/10/20 00:00 72 16 101/60 96 08/09/20 20:00 98.4 F 76 16 112/65 97 08/09/20 16:00 87 107/61 96 08/09/20 12:00 86 114/76 95 Intake and Output 08/09/20 08/10/20 08/10/20 22:59 06:59 14:59 Intake Total 480 240 Output Total 450 Balance 30 240 Intake: IV 0 0.9 0 Intake, IV Titration 0 Amount IV Fluid Continuation 800 0 ml @ 0 mls/hr IV .[facility] Rx#:[id number] Oral 480 240 Output: Urine 450 Other: Voiding Method Toilet Toilet # Voids 1 Weight 83.6 kg In general, this is a well-developed, well-nourished white female in no acute distress. Her heart has a regular rhythm and rate without murmur. Her lungs are clear to auscultation bilaterally in all torres. Her abdomen is nondistended, soft, nontender, without any palpable masses. Her extremities without any cyanosis, clubbing, or edema and are nontender to palpation brody aterally. Pelvic examination is deferred as all findings from imaging are benign and she is scheduled for routine gynecologic care in the near future. Results Result Diagrams: 08/08/20 07:14 08/08/20 07:14 Abnormal Lab Results - Last 24 Hours (Table) 08/07/20 08/09/20 08/09/20 Range/Units 12:30 16:32 19:55 POC Glucose (mg/dL) 150 H 118 H (75-99) mg/dL Tot Complement (CH50) 96 H (42 - 95) U/mL 08/10/20 Range/Units 06:03 POC Glucose (mg/dL) 126 H (75-99) mg/dL Tot Complement (CH50) (42 - 95) U/mL Microbiology - Last 24 Hours (Table) 08/09/20 15:45 Urine Culture - Preliminary Urine,Voided 08/05/20 14:11 Blood Culture - Preliminary Blood No Growth after 96 hours 08/05/20 14:11 Blood Culture - Preliminary Blood No Growth after 96 hours 08/04/20 09:24 Blood Culture - Preliminary Blood No Growth after 120 hours Assessment and Plan (1) Ovarian cyst Current Visit: Yes Status: Acute Code(s): N83.209 - UNSPECIFIED OVARIAN CYST, UNSPECIFIED SIDE SNOMED Code(s): 21954768 Plan: All findings both by computed tomography scan and ultrasound of are consistent w ith benign ovulatory function of the bilateral ovaries. Though CA-125 is pending, I would not put any significant credence in a result that could potentially be positive as it is a very nonspecific test unless significantly elevated. As the patient continues to have regular menses the liquor clerk than in the past prior to her ablation, this indicates that she will continue to have routine ovulatory function which is consistent with the findings on imaging as noted above. I have reassured the patient there is no gynecologic intervention necessary and she certainly can follow up with her routine joint finisher as scheduled.
--- NOTE | 2020-08-10 08:40 | P.PN ---
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 We have been asked to see in consultation for AKHIL. She presented to the hospital with symptoms of feeling dizzy, lightheaded, right-sided numbness and peripheral vision changes on the right. While at work she continued to feel lightheaded and had an acute onset of right-sided numbness that went from her waist all the way up to her head. Diagnostic testing indicates she had a left inferior also pedal lobe infarct. 08/02/20 Echocardiogram obtained revealed preserved LV systolic function with ejection fraction 55-60% however they were unable to comment on th e possibility of a shunt due to poor image quality. Venous dopplers bilateral upper and lower extremities on 08/03- which revealed non-occlusive RUE DVT within right jugular, medial subclavian vein. She underwent AKHIL on 08/04/20 which revealed evidence of a 1.1cm mass on the tip of the anterior mitral valve leaflets of unclear etiology. She underwent cardiac catheterization on 08/05/20 which revealed no evidence of obstructive coronary disease. 08/09/20: Patient seen and examined at bedside, doing well, anxious about going home. She denies chest pain, shortness of breath, palpitations, nausea, or abdominal pain. She is currently being maintained on heparin drip, aspirin 81mg daily, atorvastatin 80my daily. Telemetry tracings - patient in sinus mechanism HR 70- 80s. CT chest yesterday no intracardiac filling defect or thrombus. Labs reviewed, positive DARA, double strand DNA Ab negative, Blood cultures negative growth to date. 08/10 Patient received coumadin yesterday. Awaiting approval of Lovenox. Plan for discharge. No complaints of CP, SOB. PHYSICAL EXAMINATION Vitals reviewed CONSTITUTIONAL: No apparent distress. HEENT: Head is normocephalic. No JVD. No carotid bruit. CHEST EXAMINATION: Lungs are clear to auscultation. No chest wall tenderness is noted on palpation or with deep breathing. HEART EXAMINATION: Regular rate and rhythm. S1, S2 heard. No murmurs, gallops or rub. ABDOMEN: Soft, nontender. Positive bowel sounds. EXTREMITIES: 2+ peripheral pulses, no lower extremity edema and no calf tenderness. NEUROLOGIC EXAMINATION: Patient is awake, alert and oriented x3. ASSESSMENT Acute left occipital lobe infarct, thought to be embolic in nature per neurology. Mass tip of the anterior loli valve leaflet measuring 1.1cm - unclear etiology Libman Sacs endocarditis vs primary cardiac mass History of multiple embolic phenomenon Deep Vein Thrombosis-right jugular, medial subclavian vein- on heparin drip Hypertension History of positive anti-cardiolipin antibodies during previous pregnancies History of splenic infarct History of left renal infarct Type 2 Diabetes mellitus Former Nicotine Dependence PLAN Discharge on Coumadin and Lovenox if covered by insurance. Followup in the office in 1 week. May consider evaluation at tertiary center or repeat AKHIL in future to evaluate for any response to anticoagulation. Patient will follow up in the outpatient office with Dr. Arias No further recs from cardiology. Please call with questions. Objective - Vital Signs Vital signs: Vital Signs Temp 98.4 F 08/09/20 20:00 Pulse 75 08/10/20 04:00 Resp 18 08/10/20 04:00 BP 112/66 08/10/20 04:00 Pulse Ox 95 08/10/20 04:00 Intake & Output 08/09/20 08/10/20 08/10/20 18:59 06:59 18:59 Intake Total 960 240 Output Total 450 Balance 510 240 Weight 83.6 kg Intake: IV 0 0.9 0 Intake, IV Titration 0 Amount IV Fluid Continuation 800 0 ml @ 0 mls/hr IV .STK- MED ONE Rx#:[id number] Oral 960 240 Output: Urine 450 Other: Voiding Method Toilet # Voids 1 1 - Labs CBC & Chem 7: 08/08/20 07:14 08/08/20 07:14 Labs: Abnormal Lab Results - Last 24 Hours (Table) 08/07/20 08/09/20 08/09/20 Range/Units 12:30 16:32 19:55 POC Glucose (mg/dL) 150 H 118 H (75-99) mg/dL Tot Complement (CH50) 96 H (42 - 95) U/mL 08/10/20 Range/Units 06:03 POC Glucose (mg/dL) 126 H (75-99) mg/dL Tot Complement (CH50) (42 - 95) U/mL Microbiology - Last 24 Hours (Table) 08/09/20 15:45 Urine Culture - Preliminary Urine,Voided 08/05/20 14:11 Blood Culture - Preliminary Blood No Growth after 96 hours 08/05/20 14:11 Blood Culture - Preliminary Blood No Growth after 96 hours 08/04/20 09:24 Blood Culture - Preliminary Blood No Growth after 120 hours
[2020-08-10] MEDS: ATORVASTATIN 80 MG TAB PO SCH (09:17)
[2020-08-10] MEDS: ASPIRIN 81 MG PO SCH (09:17)
[2020-08-10] MEDS: ENOXAPARIN 80 MG/0.8 ML SYRINGE SQ SCH (09:17)
--- NOTE | 2020-08-10 09:17 | P.CON ---
Consult Note - . Consult date: 08/10/20 Assessment/Plan:: This is a inpatient follow-up for a 44-year-old female at [facility]. Patient was initially admitted for stroke-like symptoms and later diagnosed with subacute left inferior occipital lobe infarct and started on IV heparin for anticoagulation. During her evaluation she was found to have a possible mass vs. vegetation on anterior mitral valve leaflet measuring 1.1cm of unclear etiology. Her blood cultures have been negative. Rheumatology was consulted to rule out SLE as possible cause for mass on mitral valve as patient also has history of antiphospholipid syndrome found during . Patient has history of alopecia areata requiring steroid injections performed by dermatology about 5 years ago but no other history of complaints that would be suspicious for SLE. Around that same time she was diagnosed with diabetes. She then had several episodes of abdominal pain last summer and GI and hematology evaluation found a splenic infarct. She is also currently being treated for right jugular DVT on heparin therapy and CT abdomen pelvis performed during this hospitalization showed evidence of possible chronic left kidney infarct. Dr. Wilder had low suspicion for connective tissue disease causing mitral valve mass including SLE, however due to positive DARA , more lab work was ordered to rule out connective tissue disease. 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 They will maximize medication therapy and bridge patient to Coumadin. Complete connective tissue disease panel performed at Hospital: Microscopic urinalysis showed 4+ GLUCOSE, POSITIVE NITRITE, LARGE LEUKO ESTERASE, BMP normal, CBC normal, negative DA, negative SSA and SSB, nonreactive hepatitis B surface antigen, nonreactive hepatitis C antibody, POSITIVE DARA, negative Flowers, negative SCL70, negative double-stranded DNA, negative rheumatoid factor, nor mal C3 and C4, MILDLY HIGH C-RP 1.2, normal ESR, negative CCP, POSITIVE LUPUS ANTICOAGULANT (patient on heparin at time), negative ANCA panel, negative cardiolipin, negative glycoprotein, negative TSH. EXAM: unremarkable, in no acute distress, laying in bed at time of exam. I spoke with Dr. Wilder regarding the patient and at this time other than a positive DARA, the patient has no evidence to suggest she is suffering from autoimmune disease including lupus. Labs regarding antiphospholipid syndrome showed a negative glycoprotein and negative cardiolipin and she did have a positive Lupus anticoagulant however patient was on intravenous heparin at the time therefore this is likely a false positive. Based on positive DARA, we would like to see the patient in one week for further evaluation. Assessment and treatment plan reviewed and approved by Dr. Graciela Wilder M.D. General Exam Limitations: no limitations General appearance: alert, in no apparent distress Head exam: Present: atraumatic Eye exam: Present: normal appearance, PERRL, EOMI Pupils: Present: normal accommodation ENT exam: Present: normal exam, normal oropharynx, mucous membranes moist Neck exam: Present: normal inspection Respiratory exam: Present: normal lung sounds bilaterally Cardiovascular Exam: Present: regular rate, normal rhythm, normal heart sounds GI/Abdominal exam: Present: soft, normal bowel sounds Extremities exam: Present: normal inspection, full ROM, normal capillary refill Back exam: Present: normal inspection, full ROM Neurological exam: Present: alert, altered, oriented X3 Psychiatric exam: Present: normal affect, normal mood Skin exam: Present: warm, dry, intact, normal color
[2020-08-10] MEDS: MUPIROCIN 2% OINT 22 GM TUBE NASAL SCH (09:18)
[2020-08-10 11:46] LABS: Glucose,Whole Blood 96 mg/dL (75-99)
--- NOTE | 2020-08-10 14:48 | P.PN ---
Subjective Progress Note Date: 08/10/20 Principal diagnosis: Hx anticardiolopin ab positive during preg, presenting with TIA Objective - Vital Signs Vital signs: Vital Signs Temp 98.4 F 08/09/20 20:00 Pulse 75 08/10/20 04:00 Resp 18 08/10/20 04:00 BP 112/66 08/10/20 04:00 Pulse Ox 95 08/10/20 04:00 Intake & Output 08/09/20 08/10/20 08/10/20 18:59 06:59 18:59 Intake Total 960 240 480 Output Total 450 Balance 510 240 480 Weight 83.6 kg Intake: IV 0 0.9 0 Intake, IV Titration 0 Amount IV Fluid Continuation 800 0 ml @ 0 mls/hr IV .STK- MED ONE Rx#:[id number] Oral 960 240 480 Output: Urine 450 Other: Voiding Method Toilet # Voids 1 1 - Exam - Constitutional Constitutional Comment(s): Moonface appearance General appearance: Present: average body habitus, cooperative, no acute distress - EENT Eyes: Present: anicteric sclerae, EOMI ENT: Present: hearing grossly normal -HEART RRR - Respiratory Respiratory: bilateral: CTA - Peripheral edema leg Peripheral Edema: bilateral: None - Gastrointestinal General gastrointestinal: Present: normal bowel sounds, soft - Psychiatric Psychiatric: Present: A&O x's 3, appropriate affect, intact judgment & insight - Labs CBC & Chem 7: 08/08/20 07:14 08/08/20 07:14 Labs: Abnormal Lab Results - Last 24 Hours (Table) 08/07/20 08/09/20 08/09/20 Range/Units 12:30 16:32 19:55 POC Glucose (mg/dL) 150 H 118 H (75-99) mg/dL Tot Complement (CH50) 96 H (42 - 95) U/mL 08/10/20 Range/Units 06:03 POC Glucose (mg/dL) 126 H (75-99) mg/dL Tot Complement (CH50) (42 - 95) U/mL Microbiology - Last 24 Hours (Table) 08/04/20 09:24 Blood Culture - Final Blood No Growth after 144 hours 08/09/20 15:45 Urine Culture - Preliminary Urine,Voided 08/05/20 14:11 Blood Culture - Preliminary Blood No Growth after 96 hours 08/05/20 14:11 Blood Culture - Preliminary Blood No Growth after 96 hours Assessment and Plan Plan: - Imaging and Cardiology MRI - head: report reviewed Assessment and Plan Recurrent Thrombolic Events: - Positive Anticardiolipin Antibody - Positive during . - Pt took asa during her 3 pregnancies. - Anticardiolipin antibodies can be present during .Negative at this time - Testing was done here, showing patient is not positive for any antibodies. - Would recommend testing for anticardiolipin antibodies one more time to ensure they are not present before being able to say, with certainty, that patient does not have antibodies. Agree with Neurology plan for treatment of acute TIA. DARA positive Further work-up per rheumatology note reviewed and discussed with the same Lupus Anticoagulant remains pending CVA (cerebral vascular accident)/TIA's - Rt jugular and medial subclavian thrombosis, all other extremities neg for DVT. - Heparin drip continued - Beta glycoprotein and anticardolipin antibodies negative - Lupus anticoagulant from this admission has resulted and rheumatology's note reviewed Pending lupus anticoagulant-if positive, in conjunction with stroke and now DVT, recommendation will be for lifelong anticoagulation with coumadin. If negative then other plans anticoagulation may be more appropriate. - She will follow up with Dr. Mendiola on DC for further plans. Rheumatology following while inpatient. - Plan to continue Lovenox at discharge in the interim until decision on surgical intervention, defer this decision to [facility]. Rec for tertiary hospital input. Discussed with case management transfer Plan: - Warfarin Dosing at this time. and bridge with Lovenox at discharge. Physician Attest: I have completed the full history and physical and agree with above dictation, dictated as a scribe
[2020-08-10 15:05] VITALS: BP 117/64; PULSE 75; TEMP 98.2
[2020-08-10] MEDS: HEPARIN SOD,PORK IN 0.45% NACL 25,000 UNIT in 0.45% NACL 1 250ML.BAG IV SCH (15:08)
[2020-08-10 18:01] LABS: Basophils % (A) 0 %; Eosinophils # (A) 0.4 k/uL (0-0.7); Eosinophils % (A) 7 %; HCT 39.6 % (34.0-46.0); HGB 13.6 gm/dL (11.4-16.0); Lymphocytes # (A) 0.4 k/uL (1.0-4.8); Lymphocytes % (A) 7 %; MCH 29.1 pg (25.0-35.0); MCHC 34.3 g/dL (31.0-37.0); MCV 84.8 fL (80.0-100.0); Mean Platelet Volume 7.3; Monocytes # (A) 0.2 k/uL (0-1.0); Monocytes % (A) 4 %; Neutrophils # (A) 4.3 k/uL (1.3-7.7); Neutrophils % (A) 82 %; Platelet Count 300 k/uL (150-450); RBC 4.67 m/uL (3.80-5.40); RDW 14.6 % (11.5-15.5); WBC 5.3 k/uL (3.8-10.6)
--- NOTE | 2020-08-10 22:00 | P.DS ---
Providers Date of admission: 08/02/20 10:40 Attending physician: Clifton Vallejo Consults: 08/02/20 09:05 Consult Physician Urgent Consulting Provider: Roberto Ludwig Consult Reason/Comments: subacute occipital infarction Do you want consulting provider notified?: Yes 08/03/20 07:32 Consult Physician Routine Consulting Provider: John Mccann Consult Reason/Comments: stroke in young patient with ?anticardiolip abs hx Do you want consulting provider notified?: Yes 08/04/20 11:50 Consult Physician Routine Consulting Provider: Jorge Roe Consult Reason/Comments: abnormal MV on AKHIL Do you want consulting provider notified?: Yes 08/04/20 14:22 Consult Physician Routine Consulting Provider: Katie Varghese Consult Reason/Comments: possible mitral valve vegetation Do you want consulting provider notified?: Yes 08/05/20 12:47 Consult Physician Routine Consulting Provider: Graciela Wilder Consult Reason/Comments: hx of alopecia, anticardiolipin antibody positive, mitral valve mass Do you want consulting provider notified?: Yes Consult Physician Routine Consulting Provider: Amparo Newman Consult Reason/Comments: Mitral valve mass, possible endocarditis Do you want consulting provider notified?: Yes Consult Physician Routine Consulting Provider: Erika Tineo Consult Reason/Comments: Hx of hepatosplenomegaly, hx of elevated liver enzymes, hx splenic infarct Do you want consulting provider notified?: Yes 08/09/20 08:35 Consult Physician Routine Consulting Provider: Kameron Fernandez Consult Reason/Comments: 3.9 x 3.2 simple appearing thin wall ovarian cyst on CT scan Do you want consulting provider notified?: Yes Primary care physician: [facility] Course: Diagnoses: -Acute cardioembolic stroke in the left occipital lobe symptoms of right upper quadrant todd-anopsia. -Acute DVT in the right jugular and subclavian vein. -1.1 cm mass on anterior mitral valve leaflet. 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 -Detes mellitus type 2 -Hyperlipidemia -Obesity BMI 33.8 -nonalcoholic fatty liver disease Hospital course: This is a pleasant 44 years old female who presents with numbness and dizziness related to her acute/subacute left occipital lobe infarct/CVA. Also patient found to have DVT with right jugular and medial subclavian thrombosis started on heparin drip.Patient today's walking in the room comfortably, she denies any symptoms, she denies dizziness or numbness. No weakness. She still have persistent loss of vision in the right upper visual field. No dilatation or double vision, no worsening vision over 3 days . Also patient denies any systemic symptoms today like no chest pain or dyspnea. No abdominal pain or nausea vomiting. No change in urine or bowel habits. No fever. Echocardiogram showed 1.1 mass at the anterior mitral valve leaflet per AKHIL on 08/04. Also she has history of spleen and left renal infarct. Also patient has history of anticardiolipin antibody and she was taking aspirin at her 3 pregnancies. Per shank cutter active connective tissue disease like lupus is unlikely the cause of the mass especially with negative antibody double-stranded DNA and normal ESR with no overt signs and symptoms like joint pain or skin rash. Rouse valeria patient has positive lupus anticoagulant. However, connective tissue disease is still possible acute per cardiothoracic surgery team however they recommended no surgical intervention and medical treatment with anticoagulation and close follow-up as an outpatient Wheelchair Van Operator First Responder and cardiothoracic surgery teamwere following the case closely. Today I discussed the case with missile technician Dr. Diaz which discussed the case himself with cardiothoracic surgery team, no surgical intervention currently by their team and continue with anticoagulation and follow-up as an outpatient. Coumadine is recommended by Dr. Diaz. Start Lovenox for bridging, co-payHis only $10. She injected herself with Lovenox this morning with nurse supervision. Patient aware of our goal INR 2.5-3, she will follow up with her PCP Krystyna GREER office to check her INR this Saturday per my discussion with the patient and PCP as well. Also she agrees with that appointment with PERCY Greenwood on 08/16. Several consultants on the case including cardiology, cardiothoracic surgery, neurology, rheumatology and hematology/oncology. ID team recommended no need for antibiotic and culture has been negative. TEACHER PRIVATE team were consulted for ovarian cyst.Mostly benign and they recommended outpatient follow-up Patient has been evaluated by neurologist and cleared for discharge on aspirin and anticoagulation and follow-up as an outpatient Problems and management plan were discussed with the patient and he verbalized understanding and acceptance Patient was found stable and can be discharged home however he needs follow-up as an outpatient. Patient was instructed to follow up with PCP HECTOR Greenwood within one week and patient agrees with appointment on 08/16. Also patient agrees with appointment with Dr. Arias on 08/17, with cardiothoracic surgeon Dr. Kaur on 08/[address] Huff on 08/17 and her curtain stretcher assembler Dr. Mendiola on 08/25 states she will follow-up Also I called her PCP PERCY Greenwood and I discussed the case with her with recommendation for close INR monitoring this Saturday and Weak with a dressing of Coumadin accordingly with goal INR 2.5-3 and discontinue Lovenox once INR is 2.5 or higher. Also the need for outpatient follow-up with shank cutter, missile technician, cardiothoracic surgeon and other consultants and she kindly took note of these recommendation Physical exam Gen: patient is a AAOx3, no distress CVS: S1-S2, RRR, no murmur Lungs: B/L CTA, no wheezing Abdomen: soft, no distention, no tenderness, positive bowel sounds Extremity: no leg edema or induration Neurology: Cranial nerves are grossly intact except some right upper quarter vision loss which is a stable. No blurred vision or double vision. Motor strength is 5/5 and sensation is intact in all extremities. Meningeal signs are absent Time spent more than 35 minutes Patient Condition at Discharge: Stable Plan - Discharge Summary Discharge Rx Participant: No New Discharge Prescriptions: New Aspirin 81 mg PO DAILY #30 chew Atorvastatin [Lipitor] 80 mg PO DAILY #30 tab Enoxaparin [Lovenox] 80 mg SQ Q12HR #60 syringe Warfarin [Coumadin] 5 mg PO DAILY@1800 #30 tab Acetaminophen Tab [Tylenol] 650 mg PO Q6HR PRN tab PRN Reason: Fever And/ Or Pain Continue Omeprazole 20 mg PO DAILY Empagliflozin [Jardiance] 10 mg PO DAILY Discontinued lisinopriL [Zestril] 5 mg PO DAILY Discharge Medication List Empagliflozin [Jardiance] 10 mg PO DAILY 08/02/20 [History] Omeprazole 20 mg PO DAILY 08/02/20 [History] Enoxaparin [Lovenox] 80 mg SQ Q12HR #60 syringe 08/09/20 [Rx] Acetaminophen Tab [Tylenol] 650 mg PO Q6HR PRN tab 08/10/20 [Rx] Aspirin 81 mg PO DAILY #30 chew 08/10/20 [Rx] Atorvastatin [Lipitor] 80 mg PO DAILY #30 tab 08/10/20 [Rx] Warfarin [Coumadin] 5 mg PO DAILY@1800 #30 tab 08/10/20 [Rx] Follow up Appointment(s)/Referral(s): Mirela Mendiola MD [REFERRING] - 08/25/20 3:30 pm (curtain stretcher assembler Address: [facility]) Fatou Arias MD [STAFF PHYSICIAN] - 08/17/20 2:30 pm Krystyna Masterson NPC [REFERRING] - 08/16/20 2:00 pm Ji Lui MD [STAFF PHYSICIAN] - 08/26/20 11:00 am Kameron Fernandez MD [STAFF PHYSICIAN] - 2 Weeks (Office staff unavailable, please call office to schedule follow up appointment. phone specialist ) Don Bell MD [Primary Care Provider] - 1-2 days Danisha Ku MD [Medical Doctor] - 2 Weeks (The office will call you to schedule follow up appointment. neurologist) Graciela Wilder MD [STAFF PHYSICIAN] - 08/17/20 11:20 am Ambulatory/Diagnostic Orders: Prothrombin Time INR [LAB.AMB] Time Frame: 2 Days, Location: pcp office Patient Instructions/Handouts: Deep Vein Thrombosis (DC), How to Give a Subcutaneous Injection (DC), Ischemic Stroke (DC), Vitamin K in Foods (DC), Safe Use of Anticoagulants (DC) Activity/Diet/Wound Care/Special Instructions: Heart healthy diet Activity is restricted to you see your doctor's Recommendation for lifelong Coumadin goal INR for 2.5-3. We recommend checking INR every 2-3 days until INR is at therapeutic goal Continue with Lovenox for anticoagulation and bridging. Stop and discontinue Lovenox once INR is 2.5 or higher, while continue with Coumadin. Repeat Echocardiogram within 4-6 weeks Discharge Disposition: HOME WITH HOME HEALTH SERVICES
--- NOTE | 2020-08-11 09:35 | P.PN ---
Subjective Progress Note Date: 08/10/20 08/10/2020: Patient is sitting in the recliner, very comfortable, in no distress. Patient's was also present. Continues to have some very mild peripheral right upper quadrant visual field defect otherwise no new concerns. No focal symptoms. 08/08/2020: Patient was seen for a follow-up. Patient initially seen by Dr. Roberto Ludwig. Please refer to his note for details. Patient came to the hospital for strokelike symptoms off and on for last 1 week. Patient states that on 07/30/2020 she was not feeling well. She had an episode of dizziness and double vision with the headache, that lasted for a few minutes. She laid down for half an hour to 45 minutes, and it improved. On Saturday, she felt like a hangover feeling, mentally sluggish, like in a fog, forgetful. On Saturday, she went to work felt dizzy with the headache. 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 Did not involve the leg. It lasted for a minute but she got concerned and decided to come to the ER, and arrived on 08/02/2020. CT head showed findings consistent with infarct involving the left inferior occipital lobes. Probable remote infarct head of the caudate on the right. Patient at present states she is feeling better. Patient has history of diabetes for 5 years, denies hypertension. She smoked 1 pack per week for 20 years, cutback to 2-3 cigarettes per week in the last 5 years. Patient has history of splenic infarct and a renal infarct but did not follow through with the workup. Patient not on blood thinners at home. Telemetry monitoring showing sinus rhythm. No arrhythmia. Objective - Vital Signs Vital signs: Vital Signs Temp 98.4 F 08/09/20 20:00 Pulse 75 08/10/20 04:00 Resp 18 08/10/20 04:00 BP 112/66 08/10/20 04:00 Pulse Ox 95 08/10/20 04:00 Intake & Output 08/09/20 08/10/20 08/10/20 18:59 06:59 18:59 Intake Total 960 240 240 Output Total 450 Balance 510 240 240 Weight 83.6 kg Intake: IV 0 0.9 0 Intake, IV Titration 0 Amount IV Fluid Continuation 800 0 ml @ 0 mls/hr IV .AFINOS [facility] Rx#:[id number] Oral 960 240 240 Output: Urine 450 Other: Voiding Method Toilet # Voids 1 1 - Exam Patient is a middle aged female, very pleasant, in no acute distress. Patient is alert awake oriented to time place and person. Speech and language functions are normal. Attention, concentration and fund of knowledge is adequate. On cranial examination, pupils are round and reacting to light, visual torres revealed no definitive visual field defect on today's examination, extraocular muscles are intact with no nystagmus. Face is symmetric, tongue protrudes to the midline. Palatal elevation and sensation normal, hearing and shoulder shrug normal, facial sensation normal. Shoulder shrug normal. On muscle strength testing, there is no pronator drift and the strength is normal in arms and legs distally and proximally. Deep tendon reflexes are 2+, symmetric, plantars downgoing Sensory to touch is equal with no neglect. Cerebellar function showed no ataxia for [id number] testing. No dysdiadochokinesia. Tone and bulk of muscles normal. Gait deferred, patient denies any gait issues. - Labs CBC & Chem 7: 08/10/20 16:03 08/08/20 07:14 Labs: Abnormal Lab Results - Last 24 Hours (Table) 08/07/20 08/09/20 08/09/20 Range/Units 12:30 16:32 19:55 POC Glucose (mg/dL) 150 H 118 H (75-99) mg/dL Tot Complement (CH50) 96 H (42 - 95) U/mL 08/10/20 Range/Units 06:03 POC Glucose (mg/dL) 126 H (75-99) mg/dL Tot Complement (CH50) (42 - 95) U/mL Microbiology - Last 24 Hours (Table) 08/04/20 09:24 Blood Culture - Final Blood No Growth after 144 hours 08/09/20 15:45 Urine Culture - Preliminary Urine,Voided 08/05/20 14:11 Blood Culture - Preliminary Blood No Growth after 96 hours 08/05/20 14:11 Blood Culture - Preliminary Blood No Growth after 96 hours Assessment and Plan Assessment: Subacute ischemic stroke (left occipital lobe with extension towards the posterior thalamus) with symptoms of right upper quadrant hemianposia, much improved. 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 She will be discharged on Lovenox for bridging and Coumadin. Continue Lipitor 80 mg daily for secondary stroke prophylaxis. * MRI the brain is reported as subacute infarct over the left occipital lobe with extension towards the posterior thalamus. There is also minimal additional scattered hyperintensity present within the deep white matter which seems chronic upon reviewing it. * 2-D echo was reported as overall left ventricle systolic function is normal with ejection fraction between 55-60%. Bubble study was done but it was limited because unable to rule out due to poor image quality. Left atrial size is normal. Normal left atrial size by volume. * Transesophageal echocardiograms on 08/04/2020: Is reported as normal left ventricular size and systolic function. Normal appearance of left atrial appendage. No evidence of shunting. Mass attached the tip of the anterior mitral valve leaflet measuring 1.1 cm of unclear etiology, rule out vegetation, with mitral regurgitation. Trace tricuspid regurgitation. * CT of the mandible was normal, no evidence of any significant dental disease. * Blood culture are no growth. * Nasal screen MRSA/MSSA: Negative. * Venous thrombus right upper extremity ultrasound (include jugular and subclavian). No DVT of lower extremities. Patient on anticoagulation. * Lipid panel: Triglyceride 189, cholesterol is 150, LDL 73, HDL 39. LDL goal in stroke is <70. * TSH: 1.93 (normal). * Telemetry monitoring reviewed, again showing sinus rhythm, with no A. fib * Hypercoagulable work-up: Homocysteine level is 6.21 which is normal. DARA screen is positive but the double-stranded DNA is negative. Anti-cardiolipin IgG/IGA/IgM antibody are normal and reported as negative. * Antithrombin II antigen 100% (normal), Protein S antigen 89% (normal). antistreptolysin O antibody (ASO) 25 (normal). Beta 2 glycopreint1 are negative. antithrombin III antibody (normal). antithrombin III activity 109 (normal 79-109). protein C and protein S antigen antibody (both are normal). von Willebrand factor 170 (normal). Lupus anticoagulant present. * Factor V Leiden negative. Still pending are MTHFR genotype, Factor 7 and 8 antibody (send out test). * Event monitor. * CTA of the chest showed no PE. * Rheumatology input appreciated. Recommended to continue anticoagulation, no indication for immune suppressive medications at this time, possible removal of valvular mass by cardiothoracic surgery. May need evaluation to tertiary care center. * Cardiothoracic surgery want patient to be on anticoagulation and follow-up echo to assess for any interval change, see if it dissolves with anticoagulation. * Discussed with Dr. galloway yesterday in detail. Recommend patient to follow up with a neurologist locally.
[2020-08-11 17:43] LABS: Carcinoembryonic Antigen 0.6 ng/mL (0.0-4.9)
[2020-08-11 17:57] LABS: Cancer Antigen 19-9 12.1 U/mL (0.0-34.9)
== END 2020-08-10 17:19 | disposition home health service (06) | DRG 65 ==
LOC: EC 07:41 → 3SCARD 10:40
PROVIDERS: ADMIT Hospitalist; ATTEND Hospitalist
PROC: B246ZZ4 Ultrasonography of Right and Left Heart, Transesophageal (ICD-10-PCS; principal; 2020-08-04 08:30)
PROC: B2111ZZ Fluoroscopy of Multiple Coronary Arteries using Low Osmolar Contrast (ICD-10-PCS; 2020-08-05)
DX: I63.40 Cerebral infarction due to embolism of unspecified cerebral artery (principal); I82.621 Acute embolism and thrombosis of deep veins of right upper extremity; I82.B11 Acute embolism and thrombosis of right subclavian vein; I82.C11 Acute embolism and thrombosis of right internal jugular vein; D68.62 Lupus anticoagulant syndrome; E11.9 Type 2 diabetes mellitus without complications; E78.5 Hyperlipidemia, unspecified; I10 Essential (primary) hypertension; Z20.822 Contact with and (suspected) exposure to COVID-19; J32.1 Chronic frontal sinusitis; D69.6 Thrombocytopenia, unspecified; Z68.33 Body mass index [BMI] 33.0-33.9, adult; I05.9 Rheumatic mitral valve disease, unspecified; E66.9 Obesity, unspecified; H53.461 Homonymous bilateral field defects, right side; Z79.82 Long term (current) use of aspirin; Z87.891 Personal history of nicotine dependence; K21.9 Gastro-esophageal reflux disease without esophagitis; Z82.49 Family history of ischemic heart disease and other diseases of the circulatory system; K76.0 Fatty (change of) liver, not elsewhere classified; H53.40 Unspecified visual field defects; Z79.84 Long term (current) use of oral hypoglycemic drugs; Z79.899 Other long term (current) drug therapy; Z79.02 Long term (current) use of antithrombotics/antiplatelets; N92.0 Excessive and frequent menstruation with regular cycle; D25.9 Leiomyoma of uterus, unspecified; D72.810 Lymphocytopenia; H54.7 Unspecified visual loss; I87.8 Other specified disorders of veins; N83.201 Unspecified ovarian cyst, right side; N83.202 Unspecified ovarian cyst, left side
CPT/HCPCS: 36415; 70450; 70486; 70496; 70498; 70551; 71046; 71270; 74178; 76856; 80048; 80053; 80061; 80074; 81001; 81241; 81291; 82164; 82378; 83036; 83090; 84443; 84484; 85025; 85246; 85300; 85301; 85302; 85303; 85305; 85306; 85598; 85610; 85613; 85652; 85730; 85732; 86038; 86039; 86060; 86140; 86146; 86147; 86160; 86162; 86200; 86225; 86235; 86255; 86301; 86304; 86431; 86803; 87040; 87070; 87077; 87086; 87186; 87340; 87635; 93005; 93306; 93312; 93320; 93325; 93458; 93880; 93970; 94150; 99285

== ENCOUNTER 2022-04-02 06:52 | Day surgery (SDC) | payer BC ==
[2022-03-28 10:16] VITALS: BMI 31.8
[~2022-04-02 06:52] MED LIST changes: -DEXAMETHASONE SOD PHOSPHATE 10 MG/ML 1 ML VIAL IV ONE; -HYDROmorphone 0.5 MG/0.5 ML SYRINGE IVP PRN; -MORPHINE SULFATE 2 MG/ML SYRINGE IV PRN; -ONDANSETRON 4 MG/2 ML VIAL IVP ONE; -ONDANSETRON 4 MG/2 ML VIAL IVP PRN; -PROMETHAZINE INJ 6.25 MG in SODIUM CHLORIDE 0.9% 50 ML IVPB PRN; -Pre Op ABX Message 1 EACH MISC MISCELLANE ONE
[2022-04-02 07:13] VITALS: TEMP 97
[2022-04-02 07:27] LABS: Glucose,Whole Blood 94 mg/dL (70-110)
[2022-04-02] MEDS ORDERED: LIDOCAINE 2% INJ 20 MG/ML (2 ML VIAL) ONE (07:34)
[2022-04-02] MEDS ORDERED: PROPOFOL 10 MG/ML 20 ML VIAL IV ONE (07:34)
--- NOTE | 2022-04-02 07:43 | P.GSHP ---
History of Present Illness H&P Date: 04/02/22 CHIEF COMPLAINT: GERD and colon screen HISTORY OF PRESENT ILLNESS: The patient is a 46-year-old female who presents with gastroesophageal reflux disease and need for colon screen. Upper and lower endoscopy were offered for further evaluation and management. PAST MEDICAL HISTORY: Please see list. PAST SURGICAL HISTORY: Please see list. MEDICATIONS: Please see list. ALLERGIES: Please see list. SOCIAL HISTORY: No illicit drug use FAMILY HISTORY: No reports of Crohn disease or ulcerative colitis. REVIEW OF ORGAN SYSTEMS: CONSTITUTIONAL: No reports of fevers or chills. GI: Denies any blood in stools or constipation. PHYSICAL EXAM: VITAL SIGNS: Stable GENERAL: Well-developed pleasant in no acute distress. HEENT: No scleral icterus. Extraocular movements grossly intact. Moist buccal mucosa. NECK: Supple without lymphadenopathy. CHEST: Unlabored respirations. Equal bilateral excursions. CARDIOVASCULAR: Regular rate and rhythm. Distal 2+ pulses. ABDOMEN: Soft, nondistended. MUSCULOSKELETAL: No clubbing, cyanosis, or edema. ASSESSMENT: 1. Gastroesophageal reflux disease 2. Colon screen. PLAN: 1. 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 Father History Unknown: Yes Medications and Allergies Home Medications Medication Instructions Recorded Confirmed Type Empagliflozin [Jardiance] 10 mg PO DAILY 08/02/20 04/02/22 History Omeprazole 20 mg PO DAILY 08/02/20 04/02/22 History Acetaminophen Tab [Tylenol] 650 mg PO Q6HR PRN tab 08/10/20 04/02/22 Rx Atorvastatin [Lipitor] 80 mg PO DAILY #30 tab 08/10/20 04/02/22 Rx Warfarin [Coumadin] 5 mg PO DAILY@1800 #30 tab 08/10/20 04/02/22 Rx ALPRAZolam [Xanax] 1 tab PO DAILY PRN 03/28/22 04/02/22 History FLUoxetine HCL [PROzac] 20 mg PO DAILY 03/28/22 04/02/22 History Hydroxychloroquine Sulfate 200 mg PO BID 03/28/22 04/02/22 History Allergies Allergy/AdvReac Type Severity Reaction Status Date / Time No Known Allergies Allergy Verified 04/02/22 07:09 Surgical - Exam Vital Signs Temp Pulse Resp BP Pulse Ox 97.0 F L 98 18 112/53 96 04/02/22 07:07 04/02/22 07:07 04/02/22 07:07 04/02/22 07:07 04/02/22 07:07
--- NOTE | 2022-04-02 07:45 | P.PCN ---
Date of Procedure: 04/02/22 Description of Procedure: PREOPERATIVE DIAGNOSIS: Gastroesophageal reflux disease. POSTOPERATIVE DIAGNOSIS: Gastroesophageal reflux disease. Gastritis. Diaphragmatic hiatal hernia OPERATION: Esophagogastroduodenoscopy with biopsies along antrum and duodenum SURGEON: Daja Del Rio MD ANESTHESIA: MAC. INDICATIONS: The patient is a 46-year-old female who presents with reflux disease. Benefits and risks of the procedure were described. Informed consent was obtained. DESCRIPTION: The patient was brought into the endoscopy suite and laid in the left lateral decubitus position. An Olympus gastroscope was passed along the posterior oropharynx down to the distal esophagus where the squamocolumnar junction was encountered at 37 cm from the incisors. The stomach was entered and no bile reflux was found. Additional findings are listed below. Biopsies with cold forceps were obtained of the antrum. The first through third portion of the duodenum was examined. Retroflexion of the scope confirmed Hill grade 2 lower esophageal valve. The squamocolumnar junction demonstrated LA grade B erosive e sophagitis. The stomach was desufflated. The patient tolerated the procedure well. FINDINGS: Squamocolumnar junction 37 cm from the incisors. Diaphragmatic hiatus at 37 cm.Hiatal hernia, 4 cm Hill grade 2 lower esophageal valve. LA grade A erosive esophagitis. Biopsies obtained of duodenum Chronic gastritis RECOMMENDATIONS: Upper endoscopy as needed.
--- NOTE | 2022-04-02 08:06 | P.PCN ---
Date of Procedure: 04/02/22 Description of Procedure: PREOPERATIVE DIAGNOSIS: Personal history of colon polyps Family history malignant colon polyps POSTOPERATIVE DIAGNOSIS: Tubular adenoma cecum Internal hemorrhoids, grade 2 OPERATION: Colonoscopy to the ileocecal valve and appendiceal orifice, cecum Colonoscopy with hot snare polypectomy Colonoscopy with ablation of adenoma SURGEON: Daja Del Rio MD. ANESTHESIA: MAC. INDICATIONS: The patient is an 46-year-old female who presents family history of malignant colon polyps and personal history of colon polyps. Benefits and risks were described and informed consent was obtained. DESCRIPTION OF PROCEDURE: The patient had undergone Sutab prep. The patient had been brought into the operating room and laid in the left lateral decubitus position. After adequate intravenous sedation, the rectum was examined with 2% lidocaine jelly. External hemorrhoids were encountered. The rectal tone was within normal limits. No lesions were palpated in the rectal vault. An Olympus colonoscope was advanced until the cecum, ileocecal valve and appendiceal orifice were clearly viewed. The prep was excellent. No sigmoid diverticulosis was encountered. Colonic polyps were found and removed. No evidence of focal colitis was found. Retroflexion of the scope demonstrated grade 2 internal hemorrhoids without active bleeding or inflammation. The colon was desufflated. The patient had tolerated the procedure well. Withdrawal time was over 6 minutes. FINDINGS: Aronchick preparation quality scale 1 (1-5) Internal hemorrhoids, grade 2 External hemorrhoids, grade 2. No arteriovenous malformations. No sigmoid diverticulosis Removal of 2 polyps: - Snare polypectomy at cecum, 8 mm flat tubulovillous adenoma - Ablation of polyp at cecum, 3 mm flat villous adenoma No focal colitis. RECOMMENDATIONS: Repeat colonoscopy in 3 years, 2024 Plan - Discharge Summary New Discharge Prescriptions: Continue Atorvastatin [Lipitor] 80 mg PO DAILY #30 tab ALPRAZolam [Xanax] 1 tab PO DAILY PRN PRN Reason: Anxiety Omeprazole 20 mg PO DAILY Empagliflozin [Jardiance] 10 mg PO DAILY Warfarin [Coumadin] 5 mg PO DAILY@1800 #30 tab Acetaminophen Tab [Tylenol] 650 mg PO Q6HR PRN tab PRN Reason: Fever And/ Or Pain FLUoxetine HCL [PROzac] 20 mg PO DAILY Hydroxychloroquine Sulfate 200 mg PO BID Discharge Medication List Empagliflozin [Jardiance] 10 mg PO DAILY 08/02/20 [History] Omeprazole 20 mg PO DAILY 08/02/20 [History] Acetaminophen Tab [Tylenol] 650 mg PO Q6HR PRN tab 08/10/20 [Rx] Atorvastatin [Lipitor] 80 mg PO DAILY #30 tab 08/10/20 [Rx] Warfarin [Coumadin] 5 mg PO DAILY@1800 #30 tab 08/10/20 [Rx] ALPRAZolam [Xanax] 1 tab PO DAILY PRN 03/28/22 [History] FLUoxetine HCL [PROzac] 20 mg PO DAILY 03/28/22 [History] Hydroxychloroquine Sulfate 200 mg PO BID 03/28/22 [History] Follow up Appointment(s)/Referral(s): Daja Del Rio MD [STAFF PHYSICIAN] - 04/17/22 Patient Instructions/Handouts: *Surgery [facility] - (Anesthesia) Endoscopy Discharge Instructions Activity/Diet/Wound Care/Special Instructions: Repeat colonoscopy in 3 years, 2024 Discharge Disposition: HOME SELF-CARE
[2022-04-02 08:21] VITALS: BP 120/80; PULSE 79; RESP 16
== END 2022-04-02 09:10 | disposition home or self-care (01) ==
LOC: ORWHC2ENDO 06:52
PROVIDERS: ATTEND Surgery Plastic and Reconstructive Surgery
DX: Z12.11 Encounter for screening for malignant neoplasm of colon (principal); D12.0 Benign neoplasm of cecum; K29.50 Unspecified chronic gastritis without bleeding; K44.9 Diaphragmatic hernia without obstruction or gangrene; K31.89 Other diseases of stomach and duodenum; K64.4 Residual hemorrhoidal skin tags; K21.00 Gastro-esophageal reflux disease with esophagitis, without bleeding; K64.1 Second degree hemorrhoids; E11.9 Type 2 diabetes mellitus without complications; Z79.84 Long term (current) use of oral hypoglycemic drugs; Z86.73 Personal history of transient ischemic attack (TIA), and cerebral infarction without residual deficits; E78.5 Hyperlipidemia, unspecified; L65.9 Nonscarring hair loss, unspecified; Z98.51 Tubal ligation status; Z98.890 Other specified postprocedural states; D68.61 Antiphospholipid syndrome; D69.6 Thrombocytopenia, unspecified; F41.8 Other specified anxiety disorders; Z87.19 Personal history of other diseases of the digestive system; Z87.42 Personal history of other diseases of the female genital tract; Z86.79 Personal history of other diseases of the circulatory system; Z87.891 Personal history of nicotine dependence; Z82.49 Family history of ischemic heart disease and other diseases of the circulatory system; Z79.1 Long term (current) use of non-steroidal anti-inflammatories (NSAID); Z79.01 Long term (current) use of anticoagulants; Z79.02 Long term (current) use of antithrombotics/antiplatelets; Z79.899 Other long term (current) drug therapy
CPT/HCPCS: 45388; 81025; 88305; 45385; 43239; J2704; J2001